=== PATIENT | male | born 1990 ===

== ENCOUNTER 2020-06-15 12:31 | Emergency (ER) | payer OTHER, SELFPAY ==
[2020-06-15 13:39] VITALS: BP 140/93; PULSE 80; RESP 16; O2SAT 99; BMI 55.3
[2020-06-15 15:00] LABS: MANUAL DIFF FLAG NO
[2020-06-15 15:04] LABS: Basophils Percent Auto 0.5 % (0-2); Eosinophils Percent Auto 0.1 % (0-4); Hematocrit 49.9 % (42-52); Hemoglobin 16.8 g/dl (14.0-18.0); Imm Gran Abs Auto 0.01 X10*3/uL (0.00-0.03); Imm Gran Pct Auto 0.1 % (0.0-0.4); Lymphocytes Absolute Auto 1.6 X10*3/uL (1.2-4.9); Lymphocytes Percent Auto 21.8 % (20-40); Mean Corpuscular HGB Conc 33.7 g/dl (31.0-36.0); Mean Corpuscular Hemoglobin 30.8 pg (27.0-33.0); Mean Corpuscular Volume 91.4 fL (80-98); Mean Platelet Volume 10.2 fL (9.4-12.4); Monocytes Absolute Auto 0.7 X10*3/uL (0.1-1.2); Monocytes Percent Auto 8.7 % (2-11); Neutrophils Absolute Auto 5.2 X10*3/uL (2.0-8.3); Neutrophils Percent Auto 68.8 % (45-73); Platelet Count 228 X10*3/uL (160-400); Red Blood Count 5.46 X10*6/uL (4.60-5.80); Red Cell Distribution Width 13.9 % (11.0-16.0); White Blood Count 7.5 X10*3/uL (4.8-10.8)
[2020-06-15 15:07] LABS: Glucose Urine UA NEG (NEG); Leukocyte Esterase Urine NEG (NEG); Nitrite Urine NEG (NEG); Specific Gravity - Urine 1.025 (1.005-1.025); Urine Blood NEG (NEG); Urine Ketones 5 MG/DL (NEG); Urine Protein NEG (NEG-TRACE)
[2020-06-15 15:08] LABS: Appearance Urine CLEAR; Color Urine YELLOW
[2020-06-15 15:16] LABS: Mucus Urine 1+ /LPF; RBC Urine 0-2 /HPF (0); Squamous Epithelial Cell Urine TRACE /LPF; WBC Urine 0-2 /HPF (0-4)
[2020-06-15 15:26] VITALS: BP 136/88; PULSE 71; RESP 16; O2SAT 99
[2020-06-15 15:29] LABS: Alanine Aminotransferase 35 U/L (0-40); Albumin Level 4.3 g/dL (3.5-5.0); Alkaline Phosphatase 83 U/L (39-117); Anion Gap 12 (12-20); Aspartate Amino Transferase 35 U/L (5-37); Bilirubin Total 1.5 mg/dL (0.0-1.0); Blood Urea Nitrogen 18 mg/dL (9-16); Calcium 9.3 mg/dL (8.4-10.2); Carbon Dioxide 28 mmol/L (22-29); Chloride 103 mmol/L (96-108); Creatinine Clr Calc Pharmacy 207.8; Estimated Glomerular Filt Rate > 60; Glucose Random 98 mg/dL (60-115); Magnesium 2.1 mg/dL (1.6-2.6); Potassium 4.1 mmol/L (3.3-5.1); Sodium 139 mmol/L (135-145); Total Protein 6.9 g/dL (6.5-8.0)
[2020-06-15 15:40] LABS: Amphetamine Screen Urine Not Detected (Not Detect); Barbiturates, Urine Not Detected (Not Detect); Benzodiazepines Screen Urine Not Detected (Not Detect); Cannabinoid Screen Urine Not Detected (Not Detect); Cocaine Screen Urine Not Detected (Not Detect); Opiate Screen Urine Not Detected (Not Detect); Phencyclidine Screen Urine Not Detected (Not Detect)
[2020-06-15 15:51] LABS: Thyroid Stimulating Hormone 0.45 uIU/mL (0.32-4.0)
--- NOTE | 2020-06-15 19:46 | ED.GENADULT ---
HPI - General Adult General Chief complaint: General Medical Stated complaint: numbness - hands and feet Time Seen by Provider: 06/15/20 13:49 Source: patient Mode of arrival: ambulatory Limitations: no limitations History of Present Illness HPI narrative: 28-year-old male who denies any significant past medical or surgical history not currently taking any medications denies any illicit substance use who presents ambulatory via triage with complaint of states over the past several months he has had intermittent feeling/sensations of numbness and tingling at the distal aspect of his hands bilaterally and also his feet sometimes it will be 1 location a last for several minutes if not longer and will resolve. States this will happen intermittently to all of his extremities. He denies any fever chills, headache, pain or discomfort. No recent illness. No recent travel. No family history of neurovascular disease. He denies any fluctuation in weight. Onset (ago): month(s) Quality: burning Pain Consistency: intermittent Relieving factors: none Exacerbating factors: none Associated symptoms: denies other symptoms Treatments prior to arrival: none Related Data Allergies Allergy/AdvReac Type Severity Reaction Status Date / Time No Known Allergies Allergy Unverified 12/01/19 16:08 [No Known Allergies*] Review of Systems Review of Systems: Constitutional: No Weight loss, No Fever, No Chills, No Night Sweats, No Fatigue, No Malaise ENT/Mouth: No Hearing loss, No Ear Pain, No Nasal Congestion, No Sinus Pain, No Hoarseness, No sore throat, No Rhinorrhea, No Swallowing Difficulty Eyes: No Eye Pain, No Swelling, No Redness, No Foreign Body, No Discharge, No Vision Changes Cardiovascular: No Chest Pain, No SOB, No Dyspnea on Exertion, No Orthopnea, No Edema, No Palpitations Respiratory: No Cough, No Sputum, No Wheezing, No Dyspnea Gastrointestinal: No Nausea, No Vomiting, No Diarrhea, No Constipation, No abdominal Pain, No Hematochezia, No Melena Genitourinary: No Dysuria, No Urinary Frequency, No Hematuria, No Urinary Incontinence, No Urgency, No Flank Pain, No Urinary Flow Changes, No Hesitancy Musculoskeletal: No joint pain, No Myalgias, No Joint Swelling Skin: No Skin Lesions, No rash Neuro: No Weakness, No Numbness, + Paresthesias, No Loss of Consciousness, No Dizziness, No Headache Psych: No Anxiety/Panic, No Depression, No SI/HI/AH/VH, No Social Issues Heme/Lymph: No Bruising, No Bleeding,No Lymphadenopathy Endocrine: No Polyuria, No Polydipsia, No Temperature Intolerance Yes all other systems are reviewed and are negative [facility] Social History Social History Advance Directives: No Advance Directives Information Provided: No Physical Exam Vital Signs: Vital Signs: Last Vital Signs Pulse 71 06/15/20 15:26 Resp 16 06/15/20 15:26 BP 136/88 06/15/20 15:26 Pulse Ox 99 06/15/20 15:26 Body Mass Index 55.3 Reviewed Const: Other: Well developed, appears stated age, walked in caring a book bag. General: cooperative and healthy appearing; No acute distress or intoxicated appearing Nutritional Appearance: average body habitus Orientation/consciousness: patient oriented x3 HENMT: Head: Yes normal to inspection Ears: hearing grossly normal bilaterally Eyes: General: appearance normal, both eyes and all related structures Visual [place]: normal visual [place] by confrontation Pupils: Equal, round and reactive pupils present Neck: Neck: Yes normal visual inspection, Yes no meningeal signs, No positive Brudzinski's sign, No positive Kernig's sign and No tender Thyroid: Thyroid normal Chest: Chest palpation & inspection: normal inspection of the chest Resp: Effort & Inspection: normal respiratory effort Auscultation: clear to auscultation bilaterally Cardio: Jugular venous distension: no JVD Rhythm: regular rhythm Heart sounds: S1 normal heart sound present and S2 normal heart sound present GI: Inspection: Yes normal to inspection Palpation (GI): Soft to palpation Percussion: Yes normal to percussion Auscultation: normal bowel sounds : General: Yes no CVA tenderness Back/Spine/Pelvis: Back: no CVA tenderness Skin: General skin exam: no rashes or lesions noted Neuro: General: patient oriented x3, gait normal, tone normal, moves all extremities, Normal light touch and pain sensation, no meningeal signs and CN's II-XI intact bilaterally Cranial nerves: Yes CN's II-XII intact bilaterally, Yes Facial sensation intact/muscles of mastication intact, Yes Equal, round and reactive pupils present and Yes Normal accommodation reflex present Cognition (Neuro): normal cognition Gait exam (Neuro): Normal gait present Motor exam (neuro): 5/5 motor strength present throughout, Pronator motor function not present, no tremor noted, no asterixis, Motor fasciculations not present and Normal motor muscle tone present throughout Sensory Exam: Normal double simultaneous stimulation for sensation Extrem: General: Yes normal to inspection NIH Stroke Scale Internal: Initial- Upon Arrival Level of Consciousness: Alert Level of Consciousness Questions: Answers both questions correctly Level of Consciousness Commands: Performs both tasks correctly Best Gaze: Normal Visual: No visual loss Facial Palsy: Normal Motor Arm (Right): No drift Motor Arm (Left): No drift Motor Leg (Right): No drift Motor Leg (Left): No drift Limb Ataxia: Absent Sensory: Normal Best Language: No aphasia Dysarthia: Normal Extinction and Inattention: No abnormality Score: 0 Course Course Course Narrative: Labs/magnesium stable, TSH within normal limits. Nonspecific paresthesias intermittent very atypical. No acute neurological findings. No symptoms at this time. Not currently taking medications. Denies any anxiety. Given this stable workup and findings I have recommended him seeing Neurology on a nonemergent basis. Has provided him with follow-up with Dr. Lau in the next 2-4 weeks. He verbalized understanding and comfortable plan. Medical Decision Making Lab Data Result diagrams: 06/15/20 14:49 06/15/20 14:49 Labs: Lab Results 06/15/20 06/15/20 06/15/20 Range/Units 14:49 14:49 14:49 WBC 7.5 (4.8-10.8) X10*3/uL RBC 5.46 (4.60-5.80) X10*6/uL Hgb 16.8 (14.0-18.0) g/dl Hct 49.9 (42-52) % MCV 91.4 (80-98) fL MCH 30.8 (27.0-33.0) pg MCHC 33.7 (31.0-36.0) g/dl RDW 13.9 (11.0-16.0) % Plt Count 228 (160-400) X10*3/uL MPV 10.2 (9.4-12.4) fL Immature Gran % (Auto) 0.1 (0.0-0.4) % Neut % (Auto) 68.8 (45-73) % Lymph % (Auto) 21.8 (20-40) % [place] % (Auto) 8.7 (2-11) % Eos % (Auto) 0.1 (0-4) % Baso % (Auto) 0.5 (0-2) % Lymph # (Auto) 1.6 (1.2-4.9) X10*3/uL [place] # (Auto) 0.7 (0.1-1.2) X10*3/uL Eos # (Auto) 0.0 (0.0-0.4) X10*3/uL Baso # (Auto) 0.0 (0.0-0.2) X10*3/uL Abs Immat Gran (auto) 0.01 (0.00-0.03) X10*3/uL Absolute Neuts (auto) 5.2 (2.0-8.3) X10*3/uL Absolute Nucleated RBC 0.000 (0.0-0.012) X10*3/uL Nucleated RBC % (auto) 0.0 (0.0-0.2) /100WBC Sodium 139 (135-145) mmol/L Potassium 4.1 (3.3-5.1) mmol/L Chloride 103 (96-108) mmol/L Carbon Dioxide 28 (22-29) mmol/L Anion Gap 12 (12-20) BUN 18 H (9-16) mg/dL Creatinine 0.87 (0.5-1.4) mg/dL Estim Creat Clear Calc 207.8 Estimated GFR > 60 Random Glucose 98 (60-115) mg/dL Calcium 9.3 (8.4-10.2) mg/dL Magnesium 2.1 (1.6-2.6) mg/dL Total Bilirubin 1.5 H (0.0-1.0) mg/dL AST 35 (5-37) U/L ALT 35 (0-40) U/L Alkaline Phosphatase 83 (39-117) U/L Total Protein 6.9 (6.5-8.0) g/dL Albumin 4.3 (3.5-5.0) g/dL TSH 0.45 (0.32-4.0) uIU/mL Urine Color YELLOW Urine Appearance CLEAR Urine pH 6.0 (5.0-8.0) Ur Specific Mark 1.025 (1.005-1.025) Urine Protein NEG (NEG-TRACE) MG/DL Urine Glucose (UA) NEG (NEG) MG/DL Urine Ketones 5 (NEG) MG/DL Urine Blood NEG (NEG) Urine Nitrite NEG (NEG) Ur Leukocyte Esterase NEG (NEG) Urine RBC 0-2 (0) /HPF Urine WBC 0-2 (0-4) /HPF Ur Squamous Epith Cells TRACE /LPF Urine Bacteria NONE /LPF Urine Mucus 1+ /LPF Urine Opiates Screen (Not Detect) Ur Barbiturates Screen (Not Detect) Ur Phencyclidine Scrn (Not Detect) Ur Amphetamines Screen (Not Detect) U Benzodiazepines Scrn (Not Detect) Urine Cocaine Screen (Not Detect) U Marijuana (THC) Screen (Not Detect) 06/15/20 Range/Units 14:49 WBC (4.8-10.8) X10*3/uL RBC (4.60-5.80) X10*6/uL Hgb (14.0-18.0) g/dl Hct (42-52) % MCV (80-98) fL MCH (27.0-33.0) pg MCHC (31.0-36.0) g/dl RDW (11.0-16.0) % Plt Count (160-400) X10*3/uL MPV (9.4-12.4) fL Immature Gran % (Auto) (0.0-0.4) % Neut % (Auto) (45-73) % Lymph % (Auto) (20-40) % [place] % (Auto) (2-11) % Eos % (Auto) (0-4) % Baso % (Auto) (0-2) % Lymph # (Auto) (1.2-4.9) X10*3/uL [place] # (Auto) (0.1-1.2) X10*3/uL Eos # (Auto) (0.0-0.4) X10*3/uL Baso # (Auto) (0.0-0.2) X10*3/uL Abs Immat Gran (auto) (0.00-0.03) X10*3/uL Absolute Neuts (auto) (2.0-8.3) X10*3/uL Absolute Nucleated RBC (0.0-0.012) X10*3/uL Nucleated RBC % (auto) (0.0-0.2) /100WBC Sodium (135-145) mmol/L Potassium (3.3-5.1) mmol/L Chloride (96-108) mmol/L Carbon Dioxide (22-29) mmol/L Anion Gap (12-20) BUN (9-16) mg/dL Creatinine (0.5-1.4) mg/dL Estim Creat Clear Calc Estimated GFR Random Glucose (60-115) mg/dL Calcium (8.4-10.2) mg/dL Magnesium (1.6-2.6) mg/dL Total Bilirubin (0.0-1.0) mg/dL AST (5-37) U/L ALT (0-40) U/L Alkaline Phosphatase (39-117) U/L Total Protein (6.5-8.0) g/dL Albumin (3.5-5.0) g/dL TSH (0.32-4.0) uIU/mL Urine Color Urine Appearance Urine pH (5.0-8.0) Ur Specific Mark (1.005-1.025) Urine Protein (NEG-TRACE) MG/DL Urine Glucose (UA) (NEG) MG/DL Urine Ketones (NEG) MG/DL Urine Blood (NEG) Urine Nitrite (NEG) Ur Leukocyte Esterase (NEG) Urine RBC (0) /HPF Urine WBC (0-4) /HPF Ur Squamous Epith Cells /LPF Urine Bacteria /LPF Urine Mucus /LPF Urine Opiates Screen Not Detected (Not Detect) Ur Barbiturates Screen Not Detected (Not Detect) Ur Phencyclidine Scrn Not Detected (Not Detect) Ur Amphetamines Screen Not Detected (Not Detect) U Benzodiazepines Scrn Not Detected (Not Detect) Urine Cocaine Screen Not Detected (Not Detect) U Marijuana (THC) Screen Not Detected (Not Detect) Discharge Plan Discharge Clinical Impression: Intermittent paresthesia of hand and foot Patient Disposition: Home, Self-Care Instructions: Paresthesia (ED) Additional Instructions: Please follow-up with her primary care doctor/neurologist as discussed Return if any concerns or worsening symptoms Thank you Referrals: Alysa Lau MD [Physician] - 1 week Physician,Unknown [Primary Care Provider] - 5 days Interventions: ED Discharge Assessment Last Done: 06/15/20 16:22 Discharge Date/Time: 06/15/20 16:23
== END 2020-06-15 16:23 | disposition home or self-care (01) ==
PROVIDERS: Nurse Practitioner Primary Care; Emergency Provider Emergency Medicine
DX: R20.0 Anesthesia of skin (principal); Z79.899 Other long term (current) drug therapy
CPT/HCPCS: 36415; 80053; 80307; 81001; 83735; 84443; 85025; 99283; 99284

== ENCOUNTER 2020-12-05 22:49 | Emergency (ER) | payer OTHER, SELFPAY ==
--- NOTE | ~2020-12-05 | CT_ITS ---
EXAMINATION: CT ABDOMEN AND PELVIS WITH CONTRAST CLINICAL INFORMATION: Right lower quadrant pain with nausea COMPARISON: 11/16/2019 TECHNIQUE: Multidetector volumetric images were obtained from the superior aspect of the liver through the pubic symphysis following administration 85 mL of Omnipaque 350 intravenous contrast. Sagittal and coronal reformatted images were obtained on the technologist's workstation. Oral contrast: No This CT examination was performed using dose optimization techniques as appropriate, variously including the following: *Automated exposure control *Adjustment of mA and/or kV according to patient size (this includes techniques or standardized protocols for targeted exams where dose is matched to indication/reason for exam; i.e. extremities or head) *Use of iterative reconstruction technique DLP: 573 mGy-cm FINDINGS: LUNG BASES: The visualized lung bases are unremarkable. LIVER, GALLBLADDER, AND BILIARY TREE: The liver is normal in size, shape, and attenuation. No focal hepatic lesion or biliary ductal dilatation is present. The gallbladder is unremarkable with no evidence of radiopaque gallstones, gallbladder wall thickening, or obvious pericholecystic inflammatory changes. PANCREAS: Unremarkable. SPLEEN: Unremarkable. ADRENAL GLANDS: Unremarkable. KIDNEYS AND URETERS: The kidneys are normal in size, shape, and attenuation. No hydronephrosis, hydroureter, or obstructing calculi seen. No perinephric stranding. BLADDER: Unremarkable. GASTROINTESTINAL TRACT: The appendix is thick-walled and fluid-filled measuring up to approximately 1.0 cm in diameter at the tip with mild adjacent stranding, suspicious for acute appendicitis in the setting of right lower quadrant pain. No associated abscess. No evidence of bowel obstruction. No free fluid or free air is seen. ABDOMINAL WALL: No significant hernia is appreciated. LYMPH NODES: Normal. VASCULAR: Unremarkable. PELVIC VISCERA: Unremarkable. OSSEOUS STRUCTURES: Unremarkable. CT/CT abdomen pelvis w con IMPRESSION: Findings suspicious for acute appendicitis as described above.
[2020-12-05 22:53] VITALS: BP 137/88; PULSE 78; RESP 16; TEMP 36.6; O2SAT 98; BMI 24.4
[2020-12-05 23:26] LABS: MANUAL DIFF FLAG NO
[2020-12-05 23:27] LABS: Basophils Absolute Auto 0.1 X10*3/uL (0.0-0.2); Basophils Percent Auto 0.4 % (0-2); Eosinophils Percent Auto 0.1 % (0-4); Hematocrit 48.6 % (42-52); Hemoglobin 16.6 g/dl (14.0-18.0); Imm Gran Abs Auto 0.05 X10*3/uL (0.00-0.03); Imm Gran Pct Auto 0.4 % (0.0-0.4); Lymphocytes Absolute Auto 1.1 X10*3/uL (1.2-4.9); Lymphocytes Percent Auto 7.6 % (20-40); Mean Corpuscular HGB Conc 34.2 g/dl (31.0-36.0); Mean Corpuscular Hemoglobin 30.3 pg (27.0-33.0); Mean Corpuscular Volume 88.8 fL (80-98); Monocytes Absolute Auto 0.9 X10*3/uL (0.1-1.2); Monocytes Percent Auto 6.4 % (2-11); Neutrophils Absolute Auto 11.9 X10*3/uL (2.0-8.3); Neutrophils Percent Auto 85.1 % (45-73); Platelet Count 205 X10*3/uL (160-400); Red Blood Count 5.47 X10*6/uL (4.60-5.80); Red Cell Distribution Width 13.2 % (11.0-16.0)
[2020-12-05 23:43] LABS: Alanine Aminotransferase 34 U/L (0-40); Albumin Level 4.3 g/dL (3.5-5.0); Alkaline Phosphatase 99 U/L (39-117); Anion Gap 15 (12-20); Aspartate Amino Transferase 33 U/L (5-37); Bilirubin Total 0.8 mg/dL (0.0-1.0); Blood Urea Nitrogen 18 mg/dL (9-16); Calcium 9.6 mg/dL (8.4-10.2); Carbon Dioxide 26 mmol/L (22-29); Chloride 103 mmol/L (96-108); Estimated Glomerular Filt Rate > 60; Glucose Random 117 mg/dL (60-115); Potassium 3.6 mmol/L (3.3-5.1); Sodium 140 mmol/L (135-145); Total Protein 6.8 g/dL (6.5-8.0)
[2020-12-06] MEDS: iohexoL 350 MG/ML 100 ML INFUS..BTL 85 ML IV (06:28)
[2020-12-06 07:40] VITALS: BP 118/75; PULSE 67; RESP 16; O2SAT 100
[2020-12-06 08:14] LABS: COVID-19 Test Negative (Negative); IDNOW Serial# 9DD0AD1C
[2020-12-06 08:53] LABS: Appearance Urine CLEAR; Color Urine YELLOW; Glucose Urine UA NEG (NEG); Leukocyte Esterase Urine NEG (NEG); Nitrite Urine NEG (NEG); Specific Gravity - Urine <= 1.005 (1.005-1.025); Urine Blood NEG (NEG); Urine Ketones NEG (NEG); Urine Protein NEG (NEG-TRACE)
--- NOTE | 2020-12-06 09:14 | PM.CNGS ---
History of Present Illness Consult details Consult date: 12/06/20 Reason for consult: other (Acute appendicitis) Requesting physician: Bobby Reyes Narrative: Year old gentleman who had that of right-sided abdominal pain around 06:00 o'clock last night. The pain was severe and was associated with nausea. He did not have fever, chills, vomiting or diarrhea. He has not experienced similar pain in the past. Pain was persistent and over time became more localized to the right lower quadrant. He presented to the emergency room for evaluation. White blood count was noted to be elevated at 14,000. CT scan of the abdomen and pelvis was consistent with early acute appendicitis. He reports persistent pain. The pain is made worse by movement and by pressure over the area. It is relieved with rest but does not resolve. Review of Systems Constitutional: Constitutional: Reports no additional constitutional complaints and Denies headache(s) Eyes: Eyes: Denies dry eyes and Denies requires corrective lenses ENT: Denies dizziness and Denies headache(s) Cardiovascular: Cardiovascular: Denies chest pain, Denies palpitations and Denies dyspnea on exertion Respiratory: Respiratory: Denies cough and Denies dyspnea on exertion Gastrointestinal: Gastrointestinal: Reports as per HPI Genitourinary: Genitourinary: Denies dysuria and Denies urinary frequency Musculoskeletal: Musculoskeletal: Reports no additional musculoskeletal complaints Integumentary/Breasts: Skin/Breast: Denies pruritus and Denies rash Neurologic: Denies dizziness and Denies headache(s) Endocrine: Endocrine: Denies palpitations Hematologic/Lymphatic: Hematologic/Lymphatic: Denies easy bleeding and Reports other (No history of blood clots) [facility] Family History Pertinent family history: Father and 1 brother have diabetes Social History Social History Advance Directives: No Advance Directives Information Provided: Yes Narrative Narrative: Does not smoke cigarettes, rare alcohol use, no marijuana or illicit substances Meds Allergies Allergy/AdvReac Type Severity Reaction Status Date / Time No Known Allergies Allergy Unverified 12/01/19 16:08 [No Known Allergies*] Physical Exam Vital Signs: Vital Signs: Last Vital Signs Temp 98 F 12/05/20 22:53 Pulse 67 12/06/20 07:40 Resp 16 12/06/20 07:40 BP 118/75 12/06/20 07:40 Pulse Ox 100 12/06/20 07:40 Body Mass Index 24.4 Const: General: cooperative, healthy appearing and no acute distress HENMT: Head: Yes normocephalic and Yes atraumatic Eyes: Conjunctivae: conjunctivae normal Sclerae: sclerae normal EOM: EOMs intact bilaterally Neck: Neck: Yes trachea midline and Yes supple Resp: Effort & Inspection: normal respiratory effort Auscultation: clear to auscultation bilaterally Cardio: Rate: regular rate Rhythm: regular rhythm GI: Other: Soft, flat, bowel sounds active, no masses, no organomegaly. Marked right lower quadrant tenderness without rebound Rectal Exam - Male: Yes deferred Skin: Other: Normal color, warm and dry Extrem: General: Yes normal to inspection Results Labs Result diagrams: 12/05/20 23:22 12/05/20 23:22 Labs: Abnormal lab results 12/05/20 12/05/20 Range/Units 23:22 23:22 WBC 14.0 H (4.8-10.8) X10*3/uL Neut % (Auto) 85.1 H (45-73) % Lymph % (Auto) 7.6 L (20-40) % Lymph # (Auto) 1.1 L (1.2-4.9) X10*3/uL Abs Immat Gran (auto) 0.05 H (0.00-0.03) X10*3/uL Absolute Neuts (auto) 11.9 H (2.0-8.3) X10*3/uL BUN 18 H (9-16) mg/dL Random Glucose 117 H (60-115) mg/dL Short CBC 12/05/20 Range/Units 23:22 WBC 14.0 H (4.8-10.8) X10*3/uL Hgb 16.6 (14.0-18.0) g/dl Hct 48.6 (42-52) % Plt Count 205 (160-400) X10*3/uL BMP 12/05/20 23:22 Sodium 140 Potassium 3.6 Chloride 103 Carbon Dioxide 26 BUN 18 H Creatinine 0.97 Calcium 9.6 Liver Function 12/05/20 Range/Units 23:22 Total Bilirubin 0.8 (0.0-1.0) mg/dL AST 33 (5-37) U/L ALT 34 (0-40) U/L Alkaline Phosphatase 99 (39-117) U/L Albumin 4.3 (3.5-5.0) g/dL Urine 12/06/20 Range/Units 08:45 Urine Color YELLOW Urine Appearance CLEAR Urine pH 6.0 (5.0-8.0) Ur Specific [place] <= 1.005 (1.005-1.025) Urine Protein NEG (NEG-TRACE) MG/DL Urine Glucose (UA) NEG (NEG) MG/DL All other labs normal. Assessment and Plan (1) Acute appendicitis: Status: Acute 30-year-old male presenting with history, exam and CT findings consistent with early acute appendicitis. We discussed treatment options including surgical treatment with laparoscopic appendectomy and potential need to convert to open. We discussed surgical risks including but not limited to infection, bleeding, DVT and PE, error in diagnosis, appendiceal stump leak. We discussed the anticipated course of recovery after both laparoscopic and open appendectomy. We also discussed the option of antibiotic therapy and reviewed the possibility that the treatment would not be successful. We discussed that the success rate is in the 75% range and that if treatment is successful, there is a chance that the appendicitis will recur. We also discussed that appendectomy would be recommended if he does not have significant improvement in his symptoms with an about 24 hours. After discussion, he elected a trial of antibiotic therapy. He already has received a dose of Zosyn in the emergency department. He will receive a 2nd dose around noon and will be reassessed. His preference is to be discharged home on oral antibiotics if he remains stable. Addendum: Reassessed at 1342. He reports significant improvement in his right lower quadrant pain. He is able to move more easily. he is hungry. He feels ready to go home. Exam reveals localized right lower quadrant tenderness significantly decreased from The time of my prior exam. We discussed the plan of care. He will begin Augmentin tonight. He will refrain from strenuous activity and will stay out of work until 12/10/2020. If he has persistent pain or any exacerbation of the pain, fever, chills, nausea or vomiting he will call the office or will return to the emergency room right away. We again discussed the option of surgery and reviewed the possibility of recurrent appendicitis, which can occur following successful treatment of acute appendicitis with antibiotic therapy. He will follow up in the office with Dr. Waller or Dr. Mcdermott next week. Procedures Date of Service Date of Service: 12/06/20
[2020-12-06] MEDS: Piperacillin Sodium/Tazobactam 3.375 GM in 0.9 % Sodium Chloride 50 ML IV (13:02)
== END 2020-12-06 14:48 | disposition home or self-care (01) ==
PROVIDERS: Emergency Provider Emergency Medicine
DX: K35.80 Unspecified acute appendicitis (principal); R10.31 Right lower quadrant pain; Z20.822 Contact with and (suspected) exposure to COVID-19; Z79.899 Other long term (current) drug therapy
CPT/HCPCS: 36415; 74177; 80053; 81003; 85025; 87040; 87635; 96365; 96375; 99284; J2543; Q9967

== ENCOUNTER 2021-07-26 11:26 | Inpatient (IN) | payer OTHER, SELFPAY ==
--- NOTE | ~2021-07-26 | CT_ITS ---
EXAMINATION: CT ABDOMEN AND PELVIS WITHOUT CONTRAST CLINICAL INFORMATION: Right lower quadrant tenderness, rule out appendicitis COMPARISON: CT abdomen pelvis 12/06/2020 TECHNIQUE: Multidetector volumetric imaging was performed from the superior aspect of the liver through the pubic symphysis. Sagittal and coronal reformatted images were obtained on the technologist's workstation. This CT examination was performed using dose optimization techniques as appropriate, variously including the following: *Automated exposure control *Adjustment of mA and/or kV according to patient size (this includes techniques or standardized protocols for targeted exams where dose is matched to indication/reason for exam; i.e. extremities or head) *Use of iterative reconstruction technique DLP: 595 mGy-cm FINDINGS: LUNG BASES: Unremarkable. ABDOMINAL AND PELVIC WALL: Unremarkable. LIVER AND BILIARY TREE: Unremarkable. GALLBLADDER: Unremarkable. PANCREAS: Unremarkable. SPLEEN: Unremarkable. ADRENAL GLANDS: Unremarkable. KIDNEYS AND URETERS: Unremarkable. GASTROINTESTINAL TRACT: Large and small bowel are unremarkable. The appendix is dilated to 1.0 cm and fluid-filled, with mild surrounding inflammatory changes suggesting acute appendicitis. No organized fluid collection or extraluminal air to suggest perforation. VASCULAR: Unremarkable. LYMPH NODES/PERITONEUM: No lymphadenopathy. FREE FLUID: None. BLADDER: Unremarkable. PELVIC VISCERA: Unremarkable. OSSEOUS STRUCTURES: Unremarkable. CT/CT abdomen pelvis wo con IMPRESSION: The appendix is dilated to 1.0 cm and fluid-filled, with mild surrounding inflammatory changes suggesting acute appendicitis. No organized fluid collection or extraluminal air to suggest perforation. The findings and recommendations were discussed with Jorge Parr MD by telephone at 07/26/2021 6:00 PM and it was ascertained that the content and urgency of the report was understood at the time of direct communication.
[2021-07-26 11:37] VITALS: BP 136/87; PULSE 76; RESP 18; TEMP 37.7; O2SAT 99; BMI 26.4
[2021-07-26 11:55] LABS: MANUAL DIFF FLAG NO
[2021-07-26 11:57] LABS: Basophils Absolute Auto 0.1 X10*3/uL (0.0-0.2); Basophils Percent Auto 0.4 % (0-2); Eosinophils Percent Auto 0.1 % (0-4); Hematocrit 50.2 % (42.0-52.0); Hemoglobin 16.6 g/dl (14.0-18.0); Imm Gran Abs Auto 0.06 X10*3/uL (0.00-0.03); Imm Gran Pct Auto 0.4 % (0.0-0.4); Lymphocytes Absolute Auto 1.7 X10*3/uL (1.2-4.9); Mean Corpuscular HGB Conc 33.1 g/dl (31.0-36.0); Mean Corpuscular Hemoglobin 29.5 pg (27.0-33.0); Mean Corpuscular Volume 89.2 fL (80.0-98.0); Mean Platelet Volume 9.8 fL (9.4-12.4); Monocytes Absolute Auto 0.9 X10*3/uL (0.1-1.2); Monocytes Percent Auto 6.5 % (2-11); Neutrophils Absolute Auto 11.3 x10*3/uL (2.0-8.3); Neutrophils Percent Auto 80.6 % (45-73); Platelet Count 224 X10*3/uL (160-400); Red Blood Count 5.63 X10*6/uL (4.60-5.80); Red Cell Distribution Width 13.4 % (11.0-16.0)
[2021-07-26 12:16] LABS: Alanine Aminotransferase 35 U/L (0-40); Albumin Level 4.4 g/dL (3.5-5.0); Alkaline Phosphatase 110 U/L (39-117); Anion Gap 14 (12-20); Aspartate Amino Transferase 29 U/L (5-37); Bilirubin Direct 0.4 mg/dL (0.0-0.5); Blood Urea Nitrogen 19 mg/dL (9-16); Calcium 10.2 mg/dL (8.4-10.2); Carbon Dioxide 26 mmol/L (22-29); Chloride 102 mmol/L (96-108); Creatinine Clr Calc Pharmacy 109.8; Estimated Glomerular Filt Rate > 60; Glucose Random 145 mg/dL (60-115); Lipase 32 U/L (8-78); Potassium 4.2 mmol/L (3.3-5.1); Sodium 138 mmol/L (135-145); Total Protein 7.2 g/dL (6.5-8.0)
[2021-07-26 16:51] LABS: Appearance Urine CLEAR; Color Urine YELLOW; Glucose Urine UA NEG (NEG); Leukocyte Esterase Urine NEG (NEG); Nitrite Urine NEG (NEG); Urine Blood NEG (NEG); Urine Ketones NEG (NEG); Urine Protein NEG (NEG-TRACE)
--- NOTE | 2021-07-26 18:16 | ED_ITS ---
HPI - Abdominal Pain General Chief Complaint: Abdominal Pain Stated Complaint: appendix pain Time Seen by Provider: 07/26/21 18:16 Source: patient Mode of arrival: ambulatory Limitations: no limitations History of Present Illness HPI narrative: Patient with no similar past medical history except had a acute appendicitis episode in 12/04 treated with antibiotics comes here for similar right lower quadrant pain started today morning 07:00 o'clock gradually getting worse acid with nausea and vomiting patient had last meal at 09:00 a.m.. No fever no chills no diarrhea. Pain is constant dull in nature gets worse on ambulation no radiation of the pain no urinary symptom Related Data Home Medications Medication Instructions Recorded Confirmed No Known Home Meds 07/26/21 07/26/21 Allergies Allergy/AdvReac Type Severity Reaction Status Date / Time No Known Allergies Allergy Unverified 12/01/19 16:08 [No Known Allergies*] Review of Systems Review of Systems Yes all other systems are reviewed and are negative [facility] Social History Social History Currently Displaying Signs/Symptoms of Drug Intoxication Withdrawal: No Advance Directives: No Advance Directives Information Provided: Yes Physical Exam ED Vital Signs: Vital Signs - 24 hr 07/26/21 11:37 Temperature 99.9 F Pulse Rate 76 Respiratory Rate 18 Blood Pressure 136/87 Pulse Oximetry 99 BMI result Body Mass Index 26.4 Appearance: Alert. Oriented X3. No acute distress. Eyes: No pallor or icterus ENT: Pharynx normal. Oral Mucosa moist Neck: Normal inspection. Neck supple. CVS: Normal heart rate and rhythm. Pulses normal. Respiratory: No respiratory distress. Equal air entry bilateral, no wheezing/rales/rhonchi Abdomen: Soft , Bowel sounds are present, no mass palpable, no CVA tenderness tender right lower quadrant with guarding and rebound tenderness Skin: Skin warm and dry. Normal skin color. Normal skin turgor. Extremities: No lower extremity edema. No calf tenderness Neuro: Oriented X 3. MDM - Abdominal Pain MDM Narrative Medical decision making narrative: Case discussed Dr. Mcdermott will admit the patient for acute appendicitis Lab Data Attestation: I reviewed the patient's lab results. Result diagrams: 07/26/21 11:51 07/26/21 11:51 Labs: Lab Results 0507/26/21 07/26/21 Range/Units 11:51 11:51 16:36 WBC 14.0 H (4.8-10.8) X10*3/uL RBC 5.63 (4.60-5.80) X10*6/uL Hgb 16.6 (14.0-18.0) g/dl Hct 50.2 (42.0-52.0) % MCV 89.2 (80.0-98.0) fL MCH 29.5 (27.0-33.0) pg MCHC 33.1 (31.0-36.0) g/dl RDW 13.4 (11.0-16.0) % Plt Count 224 (160-400) X10*3/uL MPV 9.8 (9.4-12.4) fL Immature Gran % (Auto) 0.4 (0.0-0.4) % Neut % (Auto) 80.6 H (45-73) % Lymph % (Auto) 12.0 L (20-40) % [place] % (Auto) 6.5 (2-11) % Eos % (Auto) 0.1 (0-4) % Baso % (Auto) 0.4 (0-2) % Lymph # (Auto) 1.7 (1.2-4.9) X10*3/uL [place] # (Auto) 0.9 (0.1-1.2) X10*3/uL Eos # (Auto) 0.0 (0.0-0.4) X10*3/uL Baso # (Auto) 0.1 (0.0-0.2) X10*3/uL Abs Immat Gran (auto) 0.06 H (0.00-0.03) X10*3/uL Absolute Neuts (auto) 11.3 H (2.0-8.3) x10*3/uL Absolute Nucleated RBC 0.000 (0.0-0.012) X10*3/uL Nucleated RBC % (auto) 0.0 (0.0-0.2) /100WBC Sodium 138 (135-145) mmol/L Potassium 4.2 (3.3-5.1) mmol/L Chloride 102 (96-108) mmol/L Carbon Dioxide 26 (22-29) mmol/L Anion Gap 14 (12-20) BUN 19 H (9-16) mg/dL Creatinine 1.05 (0.5-1.4) mg/dL Estim Creat Clear Calc 109.8 Estimated GFR > 60 Random Glucose 145 H (60-115) mg/dL Calcium 10.2 D (8.4-10.2) mg/dL Total Bilirubin 1.0 (0.0-1.0) mg/dL Direct Bilirubin 0.4 (0.0-0.5) mg/dL AST 29 (5-37) U/L ALT 35 (0-40) U/L Alkaline Phosphatase 110 (39-117) U/L Total Protein 7.2 (6.5-8.0) g/dL Albumin 4.4 (3.5-5.0) g/dL Lipase 32 (8-78) U/L Urine Color YELLOW Urine Appearance CLEAR Urine pH 6.0 (5.0-8.0) Ur Specific [place] 1.020 (1.005-1.025) Urine Protein NEG (NEG-TRACE) MG/DL Urine Glucose (UA) NEG (NEG) MG/DL Urine Ketones NEG (NEG) MG/DL Urine Blood NEG (NEG) Urine Nitrite NEG (NEG) Ur Leukocyte Esterase NEG (NEG) Discharge Plan Discharge Clinical Impression: Acute appendicitis Patient Disposition: Admitted As Inpatient Interventions: Admission Worksheet (ED) Last Done: 07/26/21 23:26 Discharge Date/Time: 07/26/21 23:55
--- NOTE | 2021-07-26 19:35 | PM.HPGS ---
History of Present Illness History of Present Illness Date of Service: 07/27/21 Chief complaint: recurrent acute appendicitis Narrative: Damien Roberts JR is a 31 year old male Patient presenting with complaints of right lower quadrant abdominal pain since 07:00 o'clock this morning. He reports a previous episode of similar pain November 2020. At that time he was diagnosed with early appendicitis and treated with IV antibiotics. He was subsequently switched to oral antibiotics and discharged to home. He remained asymptomatic until this morning when he again developed similar pain in the right upper quadrant. Pain was associated with nausea and vomiting, and seemed to increase in severity throughout the day . He denies fever or chills. He subsequently presented to the emergency department for further evaluation. In emergency department he was noted to be tender in the right lower quadrant. [place] [address] of the abdomen pelvis again showed a dilated appendix which was fluid filled with inflammatory changes. There is no evidence of perforation. Patient is admitted for further management of the acute appendicitis. Review of Systems Review of Systems: Yes all other systems are reviewed and are negative Constitutional: Constitutional: Reports anorexia, Denies chills, Denies fever(s) and Denies headache(s) ENT: Denies headache(s) Cardiovascular: Cardiovascular: Denies chest pain, Denies rapid heart rate, Denies irregular heart rhythm and Denies dyspnea on exertion Respiratory: Respiratory: Denies cough, Denies dyspnea on exertion and Denies wheezing Gastrointestinal: Gastrointestinal: Reports abdominal pain, Denies hematochezia, Denies change in stool character, Reports nausea and Reports vomiting Genitourinary: Genitourinary: Denies hematuria and Denies dysuria Musculoskeletal: Musculoskeletal: Denies arthralgias and Denies stiffness Integumentary/Breasts: Skin/Breast: Denies furuncle and Denies rash Neurologic: Denies confusion and Denies headache(s) Psychiatric: Psychiatric: Denies confusion Allergic/Immunologic: Allergic/Immunologic: Denies wheezing PMFSH Social History Social History Household Members: Children Housing: Apartment Patient Tobacco Use Status: Never used Tobacco Smoked in Last 30 Days: No e-Cigarette/Vaping Use: Never Used Patient Interested in Nicotine Replacement: No Patient Given Instructions on How to Stop Smoking: No Second Hand Smoke Exposure: No Use of substances other than those prescribed or required for medical reasons: No Currently Displaying Signs/Symptoms of Drug Intoxication Withdrawal: No Any prior treatment program specific to substance use: No Have you been hit, kicked, punched, or otherwise hurt by someone within the past year? If so, by whom?: No Do you feel safe in your current relationship?: Yes Is there a partner from a previous relationship who is making you feel unsafe now?: No Are you made to feel afraid or neglected: No Advance Directives: No Advance Directives Information Provided: Yes Do you have thoughts of harming others: None Do you have a plan to hurt others: No Plan Recently lost weight without trying: No Eating poorly because of decreased appetite: No Nutrition Risks: No Nutritional Risk Meds Allergies Allergy/AdvReac Type Severity Reaction Status Date / Time No Known Allergies Allergy Unverified 12/01/19 16:08 [No Known Allergies*] Active Medications: Current Medications Hydromorphone HCl (Hydromorphone Hcl 0.5 Mg/0.5 Ml Syringe) 0.5 mg IVPUSH Q3H PRN; Protocol PRN Reason: Pain, Severe (Pain Scale 7-10) Acetaminophen (Ofirmev) 1,000 mg in 100 mls @ 400 mls/hr IV Q6H [facility] Dextrose/Lactated Ringer's (D5lr) 1,000 mls @ 125 mls/hr IVCONT .Q8H [facility] Piperacillin Sod/Tazobactam (Sod 3.375 gm/ Sodium Chloride) 50 mls @ 100 mls/hr IV Q6H [facility] Ondansetron HCl (Ondansetron Hcl 4 Mg/2 Ml Vial) 4 mg IVPUSH Q8H PRN PRN Reason: Nausea Oxycodone HCl (Oxycodone Hcl Immed Release 5 Mg Tablet) 5 mg PO Q6H PRN PRN Reason: Pain, Moderate (Pain Scale 4-6 Pharmacy Consult (Consult Rx Perform Med Rec) 1 each MISCELLANE ONCE PRN PRN Reason: Consult order Sodium Chloride (0.9 % Sodium Chloride Flush 3 Ml Syringe) 3 ml IVFLUSH QSHIFT [facility] Zolpidem Tartrate (Zolpidem Tartrate 5 Mg Tablet) 5 mg PO BEDTIME PRN PRN Reason: Insomnia Home Medications Medication Instructions Recorded Confirmed Last Taken Type No Known Home Meds 07/26/21 07/26/21 Unknown History Physical Exam Vital Signs: Vital Signs: Last Vital Signs Temp 99.9 F 07/26/21 11:37 Pulse 76 07/26/21 11:37 Resp 18 07/26/21 11:37 BP 136/87 07/26/21 11:37 Pulse Ox 99 07/26/21 11:37 BMI result Body Mass Index 26.4 Const: General: No confusion Nutritional Appearance: well nourished Orientation/consciousness: No confusion Eyes: Sclerae: sclerae normal EOM: EOMs intact bilaterally Neck: Neck: Yes normal visual inspection Resp: Effort & Inspection: normal respiratory effort, no cough, no respiratory distress and no stridor Cardio: Jugular venous distension: no JVD GI: Inspection: Yes normal to inspection Palpation (GI): Soft to palpation, Tenderness to palpation present (GI) in the RLQ and at McBurney's point, no guarding and not rigid Skin: General skin exam: dry skin Rashes: no rashes Neuro: General: No confusion Extrem: General: Yes full ROM and Yes no clubbing, cyanosis or edema Psych: Appearance: grossly normal Results Results Labs: Short CBC 07/26/21 Range/Units 11:51 WBC 14.0 H (4.8-10.8) X10*3/uL Hgb 16.6 (14.0-18.0) g/dl Hct 50.2 (42.0-52.0) % Plt Count 224 (160-400) X10*3/uL BMP 07/26/21 11:51 Sodium 138 Potassium 4.2 Chloride 102 Carbon Dioxide 26 BUN 19 H Creatinine 1.05 Calcium 10.2 D Liver Function 07/26/21 Range/Units 11:51 Total Bilirubin 1.0 (0.0-1.0) mg/dL Direct Bilirubin 0.4 (0.0-0.5) mg/dL AST 29 (5-37) U/L ALT 35 (0-40) U/L Alkaline Phosphatase 110 (39-117) U/L Albumin 4.4 (3.5-5.0) g/dL Urine 07/26/21 Range/Units 16:36 Urine Color YELLOW Urine Appearance CLEAR Urine pH 6.0 (5.0-8.0) Ur Specific [place] 1.020 (1.005-1.025) Urine Protein NEG (NEG-TRACE) MG/DL Urine Glucose (UA) NEG (NEG) MG/DL Assessment and Plan (1) Acute appendicitis: Qualifiers: Acute appendicitis type: unspecified acute appendicitis type Qualified Code(s): K35.80 - Unspecified acute appendicitis Status: Acute Plan 31-year-old male patient presenting with a recurrent episode of acute appendicitis with pain in the right upper quadrant since yesterday morning. [place] [address] of the abdomen again shows a dilated thickened appendix consistent with acute appendicitis. He was previously treated non operatively with good results however due to the recurrent episode of appendicitis, I recommended a laparoscopic or possible open appendectomy. After discussion of the procedure, risks, and alternatives, he consents to a laparoscopic or possible open appendectomy. He will be added onto the operative schedule for today. Quality Stroke Does the patient have a stroke diagnosis?: No VTE Prior VTE?: No VTE Risk Level:: Surgical - moderate VTE Device Contraindication: N/A - Device Ordered VTE Drug Contraindication: Treatment Not Indicated Procedures Date of Service Date of Service: 07/27/21
--- NOTE | 2021-07-26 20:37 | PHA.MEDREC ---
MED REC COMPLETE, PATIENT STATES HE IS NOT ON ANY MEDICATION Pharmacy Consult ? Medication Reconciliation Pharmacy has completed the medication reconciliation.
[2021-07-26 20:56] LABS: Lactic Acid 1.3 mmol/L (0.5-2.0)
[2021-07-26] MEDS: 0.9 % Sodium Chloride 1,000 ML 999 ML IV (21:01)
[2021-07-26] MEDS: Piperacillin Sodium/Tazobactam 3.375 GM in 0.9 % Sodium Chloride 50 ML IV (21:02)
[2021-07-26 21:10] LABS: COVID-19 Test Negative (Negative); IDNOW Serial# 55D5AD1C
[2021-07-26] MEDS: Dextrose 5 % and Lactated Ring 1,000 ML 125 ML IVCONT (22:37)
[2021-07-26 23:05] VITALS: BP 127/76; PULSE 79; RESP 16; TEMP 36.9; O2SAT 97
[2021-07-26 23:11] LABS: Influenza A PCR NEGATIVE (Negative); Influenza B PCR NEGATIVE (Negative); Resp Syncy Virus RNA Qual PCR NEGATIVE (Negative); SARS COV2 PCR INHOUSE NEGATIVE (Negative)
[2021-07-27] VITALS (8 sets, daily range): BP systolic 131–141; BP diastolic 78–92; PULSE 70–89; RESP 16–18; TEMP 36.1–36.6; O2SAT 95–98
[2021-07-27] MEDS: Piperacillin Sodium/Tazobactam 3.375 GM in 0.9 % Sodium Chloride 50 ML IV (02:21)
[2021-07-27 06:11] LABS: MANUAL DIFF FLAG NO
[2021-07-27] MEDS: Dextrose 5 % and Lactated Ring 1,000 ML 125 ML IVCONT (06:18)
[2021-07-27 06:22] LABS: Basophils Percent Auto 0.5 % (0-2); Eosinophils Absolute Auto 0.1 X10*3/uL (0.0-0.4); Eosinophils Percent Auto 0.8 % (0-4); Hematocrit 43.3 % (42.0-52.0); Hemoglobin 14.5 g/dl (14.0-18.0); Imm Gran Abs Auto 0.02 X10*3/uL (0.00-0.03); Imm Gran Pct Auto 0.3 % (0.0-0.4); Lymphocytes Absolute Auto 1.4 X10*3/uL (1.2-4.9); Lymphocytes Percent Auto 22.9 % (20-40); Mean Corpuscular HGB Conc 33.5 g/dl (31.0-36.0); Mean Corpuscular Hemoglobin 29.9 pg (27.0-33.0); Mean Corpuscular Volume 89.3 fL (80.0-98.0); Mean Platelet Volume 10.3 fL (9.4-12.4); Monocytes Absolute Auto 0.6 X10*3/uL (0.1-1.2); Monocytes Percent Auto 10.2 % (2-11); Neutrophils Absolute Auto 4.1 x10*3/uL (2.0-8.3); Neutrophils Percent Auto 65.3 % (45-73); Platelet Count 175 X10*3/uL (160-400); Red Blood Count 4.85 X10*6/uL (4.60-5.80); Red Cell Distribution Width 13.3 % (11.0-16.0); White Blood Count 6.3 X10*3/uL (4.8-10.8)
--- NOTE | 2021-07-27 08:46 | HO.ANESPROP2 ---
[facility] Active Problems Active Problems: All Active Problems (Updated 07/26/21 @ 19:58 by Jorge Parr MD) Acute appendicitis (Acute) Past Medical History Functional capacity: independent ambulation Family History Family history of problems with anesthesia: No Surgical History History of Problems with Anesthesia: No Social History Social History Household Members: Children Housing: Apartment Patient Tobacco Use Status: Never used Tobacco Smoked in Last 30 Days: No e-Cigarette/Vaping Use: Never Used Patient Interested in Nicotine Replacement: No Patient Given Instructions on How to Stop Smoking: No Second Hand Smoke Exposure: No Use of substances other than those prescribed or required for medical reasons: No Currently Displaying Signs/Symptoms of Drug Intoxication Withdrawal: No Any prior treatment program specific to substance use: No Have you been hit, kicked, punched, or otherwise hurt by someone within the past year? If so, by whom?: No Do you feel safe in your current relationship?: Yes Is there a partner from a previous relationship who is making you feel unsafe now?: No Are you made to feel afraid or neglected: No Advance Directives: No Advance Directives Information Provided: Yes Do you have thoughts of harming others: None Do you have a plan to hurt others: No Plan Recently lost weight without trying: No Eating poorly because of decreased appetite: No Nutrition Risks: No Nutritional Risk Meds Allergies Allergy/AdvReac Type Severity Reaction Status Date / Time No Known Allergies Allergy Unverified 12/01/19 16:08 [No Known Allergies*] Active Medications: Current Medications Hydromorphone HCl (Hydromorphone Hcl 0.5 Mg/0.5 Ml Syringe) 0.5 mg IVPUSH Q3H PRN; Protocol PRN Reason: Pain, Severe (Pain Scale 7-10) Acetaminophen (Ofirmev) 1,000 mg in 100 mls @ 400 mls/hr IV Q6H [facility] [place] Last Infusion: 07/27/21 02:53 Dose: Infused Documented by: Dextrose/Lactated Ringer's (D5lr) 1,000 mls @ 125 mls/hr IVCONT .Q8H [facility] [place] Last Infusion: 07/27/21 08:05 Dose: 0 mls/hr Documented by: Piperacillin Sod/Tazobactam (Sod 3.375 gm/ Sodium Chloride) 50 mls @ 100 mls/hr IV Q6H [facility] [place] Last Infusion: 07/27/21 02:53 Dose: Infused Documented by: Ondansetron HCl (Ondansetron Hcl 4 Mg/2 Ml Vial) 4 mg IVPUSH Q8H PRN PRN Reason: Nausea Oxycodone HCl (Oxycodone Hcl Immed Release 5 Mg Tablet) 5 mg PO Q6H PRN PRN Reason: Pain, Moderate (Pain Scale 4-6 Pharmacy Consult (Consult Rx Perform Med Rec) 1 each MISCELLANE ONCE PRN PRN Reason: Consult order Sodium Chloride (0.9 % Sodium Chloride Flush 3 Ml Syringe) 3 ml IVFLUSH QSHIFT [facility] [place] Last Admin: 07/27/21 07:41 Dose: Not Given Documented by: Zolpidem Tartrate (Zolpidem Tartrate 5 Mg Tablet) 5 mg PO BEDTIME PRN PRN Reason: Insomnia Home Medications Medication Instructions Recorded Confirmed Last Taken Type No Known Home Meds 07/26/21 07/26/21 Unknown History Exam Exam Date and Time: July 27, 2021 0846 Height,Weight and Vital Signs: Height 6 ft Weight 88.451 kg Last Vital Signs Temp 97.7 F 07/27/21 07:47 Pulse 89 07/27/21 07:47 Resp 17 07/27/21 07:47 BP 132/88 07/27/21 07:47 Pulse Ox 98 07/27/21 07:47 Pertinent Lab Results Pertinent Lab Results: Laboratory Tests 07/26/21 07/26/21 07/26/21 11:51 11:51 16:36 WBC 14.0 H RBC 5.63 Hgb 16.6 Hct 50.2 MCV 89.2 MCH 29.5 MCHC 33.1 RDW 13.4 Plt Count 224 MPV 9.8 Immature Gran % (Auto) 0.4 Neut % (Auto) 80.6 H Lymph % (Auto) 12.0 L [place] % (Auto) 6.5 Eos % (Auto) 0.1 Baso % (Auto) 0.4 Lymph # (Auto) 1.7 [place] # (Auto) 0.9 Eos # (Auto) 0.0 Baso # (Auto) 0.1 Abs Immat Gran (auto) 0.06 H Absolute Neuts (auto) 11.3 H Absolute Nucleated RBC 0.000 Nucleated RBC % (auto) 0.0 Sodium 138 Potassium 4.2 Chloride 102 Carbon Dioxide 26 Anion Gap 14 BUN 19 H Creatinine 1.05 Estim Creat Clear Calc 109.8 Estimated GFR > 60 Random Glucose 145 H Lactic Acid Calcium 10.2 D Total Bilirubin 1.0 Direct Bilirubin 0.4 AST 29 ALT 35 Alkaline Phosphatase 110 Total Protein 7.2 Albumin 4.4 Lipase 32 Urine Color YELLOW Urine Appearance CLEAR Urine pH 6.0 Ur Specific [place] 1.020 Urine Protein NEG Urine Glucose (UA) NEG Urine Ketones NEG Urine Blood NEG Urine Nitrite NEG Ur Leukocyte Esterase NEG COVID-19 ([facility]) COVID-19 Clin Com Influenza Type A (PCR) Influenza Type B (PCR) RSV RNA Qual (PCR) SARS-CoV-2 RNA (RT-PCR) 07/26/21 07/26/21 07/26/21 20:32 20:41 22:26 WBC RBC Hgb Hct MCV MCH MCHC RDW Plt Count MPV Immature Gran % (Auto) Neut % (Auto) Lymph % (Auto) [place] % (Auto) Eos % (Auto) Baso % (Auto) Lymph # (Auto) [place] # (Auto) Eos # (Auto) Baso # (Auto) Abs Immat Gran (auto) Absolute Neuts (auto) Absolute Nucleated RBC Nucleated RBC % (auto) Sodium Potassium Chloride Carbon Dioxide Anion Gap BUN Creatinine Estim Creat Clear Calc Estimated GFR Random Glucose Lactic Acid 1.3 Calcium Total Bilirubin Direct Bilirubin AST ALT Alkaline Phosphatase Total Protein Albumin Lipase Urine Color Urine Appearance Urine pH Ur Specific [place] Urine Protein Urine Glucose (UA) Urine Ketones Urine Blood Urine Nitrite Ur Leukocyte Esterase COVID-19 ([facility]) Negative COVID-19 Clin Com See Note Influenza Type A (PCR) NEGATIVE Influenza Type B (PCR) NEGATIVE RSV RNA Qual (PCR) NEGATIVE SARS-CoV-2 RNA (RT-PCR) NEGATIVE 07/27/21 06:01 WBC 6.3 RBC 4.85 Hgb 14.5 Hct 43.3 MCV 89.3 MCH 29.9 MCHC 33.5 RDW 13.3 Plt Count 175 MPV 10.3 Immature Gran % (Auto) 0.3 Neut % (Auto) 65.3 Lymph % (Auto) 22.9 [place] % (Auto) 10.2 Eos % (Auto) 0.8 Baso % (Auto) 0.5 Lymph # (Auto) 1.4 [place] # (Auto) 0.6 Eos # (Auto) 0.1 Baso # (Auto) 0.0 Abs Immat Gran (auto) 0.02 Absolute Neuts (auto) 4.1 Absolute Nucleated RBC 0.000 Nucleated RBC % (auto) 0.0 Sodium Potassium Chloride Carbon Dioxide Anion Gap BUN Creatinine Estim Creat Clear Calc Estimated GFR Random Glucose Lactic Acid Calcium Total Bilirubin Direct Bilirubin AST ALT Alkaline Phosphatase Total Protein Albumin Lipase Urine Color Urine Appearance Urine pH Ur Specific [place] Urine Protein Urine Glucose (UA) Urine Ketones Urine Blood Urine Nitrite Ur Leukocyte Esterase COVID-19 ([facility]) COVID-19 Clin Com Influenza Type A (PCR) Influenza Type B (PCR) RSV RNA Qual (PCR) SARS-CoV-2 RNA (RT-PCR) Airway Heart: RRR Lungs: CTA Assessment and Plan Final Anesthetic Review Family History of Problems with Anesthesia: No History of Problems with Anesthesia: No ASA Class: I and Emergency Final Preanesthetic Review: No Changes in Pt Med Stat, Meds/Allgs Chart Reviewed, Consent Obtained/Reviewed and Anes Risks/Benef Reviewed Patient Risk: Low Procedure Risk: Low Anesthetic Plan Anesthetic Plan: GA Disposition: Standard PACU
--- NOTE | 2021-07-27 09:30 | W.PM.OPN ---
Operative Note Operative Note Date of Service: 07/27/21 Narrative: Preoperative diagnosis: Acute appendicitis Postoperative diagnosis: Same Procedure: Laparoscopic appendectomy Surgeon: Dario Mcdermott MD Floating Labor Gang Supervisor: none Anesthesia: General endotracheal Indications for procedure:31 year old male with recurrent episode of abdominal pain in the right upper quadrant, with elevated WBC and dilated appendix on CT. Operative findings: acute non-perforated appendicitis Specimen:appendix Estimated blood loss:5 mls Complications: none Procedure details: Patient was brought to the OR and placed in a supine position. After administering general anesthesia the patient's abdomen was prepped with ChloraPrep and draped in a sterile fashion. A surgical time-out was called and consent confirmed. Patient received preoperative antibiotics and Venodyne boots were in place. Local anesthesia consisting of 0.25% Sensorcaine withoutepinephrine was infiltrated in periumbilical region. A 5 mm incision was made below the umbilicus and carried down through subcutaneous tissue. A Veress needle was then inserted while elevating abdominal cavity with towel clips. After a positive drop test the abdomen was insufflated to a pressure of 15 mm of mercury. The Veress needle was removed and a 5 mm trocar inserted. The camera was then inserted in the abdomen explored. A 2nd 5 mm trocars placed in the lower midline. A 12 mm trocar was then placed in the left lower quadrant. The patient was then placed in a Trendelenburg position and rotated to the left. The appendix was identified in the right lower quadrant and brought up using blunt dissecting clamps. The mesentery of the appendix was then divided using the LigaSure. The appendiceal artery was cauterized and divided using the LigaSure. Dissection was continued down to the base of the cecum. An Endo-NABOR stapler with a purple reload was then used to divide the appendix at the base with the cecum. The appendix was then placed in Endo-Catch bag and brought out through the left lower quadrant incision. The abdomen was then irrigated with saline solution and suctioned dry. Wounds were checked for hemostasis. CO2 was then evacuated from the abdominal cavity and all trocars removed. Fascia was closed in the left lower quadrant incision using a [id number] 0 Polysorb suture. Skin was closed at all incisions using a subcuticular 4-0 Polysorb suture. Steri-Strips 2 x 2 gauze and Tegaderm were then applied. The patient tolerated the procedure well. Sponge, instrument, needle counts reported as correct. The patient was transferred to PACU in stable condition.
[2021-07-27] MEDS: oxyCODONE HCl Immed Release 5 MG TABLET PO (10:14)
--- NOTE | 2021-07-27 11:59 | P.DS_ITS ---
DS: Providers Provider Date of Service: 07/27/21 Date of admission: 07/26/21 18:26 Date of discharge: 07/27/21 Primary care physician: Unknown Physician Admitting clinician: Dario Mcdermott Discharging clinician: Dario Mcdermott DS: Diagnosis Discharge Diagnosis (1) Acute appendicitis: Status: Acute DS: Summary Hospital Course Hospital Course: Damien Roberts JR is a 31 year old male Patient presenting with complaints of right lower quadrant abdominal pain since 07:00 o'clock this morning. He reports a previous episode of similar pain November 2020. At that time he was diagnosed with early appendicitis and treated with IV antibiotics. He was subsequently switched to oral antibiotics and discharged to home. He remained asymptomatic until this morning when he again developed similar pain in the right upper quadrant. Pain was associated with nausea and vomiting, and seemed to increase in severity throughout the day . He denies fever or chills. He subsequently presented to the emergency department for further evaluation. In emergency department he was noted to be tender in the right lower quadrant. [place] [address] [place] of the abdomen pelvis again s howed a dilated appendix which was fluid filled with inflammatory changes. There is no evidence of perforation. Patient is admitted for further management of the acute appendicitis. Patient was subsequently admitted to the surgical service and placed on IV antibiotics. He was taken to the OR on Thursday07/27/2021 for a laparoscopic appendectomy. Operative findings were consistent with an acute non perforated appendicitis. He tolerated the procedure well. He was subsequently started on regular diet on postoperative day 0. He felt comfortable with minimal incisional pain. After tolerating a regular diet on postoperative day 0 he felt well enough to be discharged home and requested discharge. He was subsequently discharged on 07/27/2021 in stable condition. Discharge instructions were to avoid lifting greater than 10 lb for the next 2 weeks. He should follow up in my office in approximately 1 week for wound examination. He also should call the office as needed for fever, chills, nausea, vomiting, or increased abdominal pain. He expressed understanding and agrees with the plan. Time spent discussing smoking cessation with patient: 3 to 10 minutes Status at Discharge Functional status at discharge: independent ambulation Overall status at discharge: patient is back to baseline Time Spent with Patient Time attestation: Total time spent providing and/or coordinating discharge services: Discharge coordination time: Less than 30 minutes Quality: Safe Use of Opioids Does Pt have an Active Cancer Diagnosis on the Problem List?: No Quality: Stroke Does the patient have a stroke diagnosis?: No Physical Exam Vital Signs: Vital Signs: Last Vital Signs Temp 97.0 F 07/27/21 09:50 Pulse 70 07/27/21 10:10 Resp 16 07/27/21 10:10 BP 134/92 H 07/27/21 10:10 Pulse Ox 97 07/27/21 10:10 BMI result Body Mass Index 26.4 Const: General: no acute distress Nutritional Appearance: well nourished Orientation/consciousness: patient oriented x3 Limitations: no limitations Resp: Effort & Inspection: normal respiratory effort and no respiratory distress GI: Inspection: Yes normal to inspection Palpation (GI): Soft to palpation Percussion: Yes normal to percussion Auscultation: normal bowel sounds Rectal Exam - Male: Yes deferred Skin: General skin exam: no rashes or lesions noted Neuro: General: patient oriented x3 DS: Data Data Completed and Pending Pending studies at discharge: Pending at discharge 07/27/21 09:14 Surgical [PTH] Routine Labs on day of discharge: Laboratory Results - last 24 hr 07/26/21 07/26/21 07/26/21 11:51 16:36 20:32 WBC RBC Hgb Hct MCV MCH MCHC RDW Plt Count MPV Immature Gran % (Auto) Neut % (Auto) Lymph % (Auto) [place] % (Auto) Eos % (Auto) Baso % (Auto) Lymph # (Auto) [place] # (Auto) Eos # (Auto) Baso # (Auto) Abs Immat Gran (auto) Absolute Neuts (auto) Absolute Nucleated RBC Nucleated RBC % (auto) Sodium 138 Potassium 4.2 Chloride 102 Carbon Dioxide 26 Anion Gap 14 BUN 19 H Creatinine 1.05 Estim Creat Clear Calc 109.8 Estimated GFR > 60 Random Glucose 145 H Lactic Acid 1.3 Calcium 10.2 D Total Bilirubin 1.0 Direct Bilirubin 0.4 AST 29 ALT 35 Alkaline Phosphatase 110 Total Protein 7.2 Albumin 4.4 Lipase 32 Urine Color YELLOW Urine Appearance CLEAR Urine pH 6.0 Ur Specific [place] 1.020 Urine Protein NEG Urine Glucose (UA) NEG Urine Ketones NEG Urine Blood NEG Urine Nitrite NEG Ur Leukocyte Esterase NEG COVID-19 ([facility]) COVID-19 Clin Com Influenza Type A (PCR) Influenza Type B (PCR) RSV RNA Qual (PCR) SARS-CoV-2 RNA (RT-PCR) 07/26/21 07/26/21 07/27/21 20:41 22:26 06:01 WBC 6.3 RBC 4.85 Hgb 14.5 Hct 43.3 MCV 89.3 MCH 29.9 MCHC 33.5 RDW 13.3 Plt Count 175 MPV 10.3 Immature Gran % (Auto) 0.3 Neut % (Auto) 65.3 Lymph % (Auto) 22.9 [place] % (Auto) 10.2 Eos % (Auto) 0.8 Baso % (Auto) 0.5 Lymph # (Auto) 1.4 [place] # (Auto) 0.6 Eos # (Auto) 0.1 Baso # (Auto) 0.0 Abs Immat Gran (auto) 0.02 Absolute Neuts (auto) 4.1 Absolute Nucleated RBC 0.000 Nucleated RBC % (auto) 0.0 Sodium Potassium Chloride Carbon Dioxide Anion Gap BUN Creatinine Estim Creat Clear Calc Estimated GFR Random Glucose Lactic Acid Calcium Total Bilirubin Direct Bilirubin AST ALT Alkaline Phosphatase Total Protein Albumin Lipase Urine Color Urine Appearance Urine pH Ur Specific [place] Urine Protein Urine Glucose (UA) Urine Ketones Urine Blood Urine Nitrite Ur Leukocyte Esterase COVID-19 ([facility]) Negative COVID-19 Clin Com See Note Influenza Type A (PCR) NEGATIVE Influenza Type B (PCR) NEGATIVE RSV RNA Qual (PCR) NEGATIVE SARS-CoV-2 RNA (RT-PCR) NEGATIVE Imaging CT scan - abdomen: Radiologist's impression: ITS Impressions Abdomen/Pelvis CT 07/26/21 17:12 IMPRESSION: The appendix is dilated to 1.0 cm and fluid-filled, with mild surrounding inflammatory changes suggesting acute appendicitis. No organized fluid collection or extraluminal air to suggest perforation. The findings and recommendations were discussed with Jorge Parr MD by telephone at 07/26/2021 6:00 PM and it was ascertained that the content and urgency of the report was understood at the time of direct communication. Discharge Plan Discharge Patient Disposition: Home, Self-Care Discharge Diagnosis: Acute appendicitis Referrals: Dario Mcdermott MD [Physician] - 1 Week Physician,Bianca Bauer [Primary Care Provider] - 1 Week Discharge Medications: New oxycodone-acetaminophen [Endocet] 5-325 mg tablet 1 tab PO Q6H PRN (Reason: pain (scale score 7-10)) Qty: 14 0RF Discharge Orders: Discharge Order (Routine); Ordered 07/27/21 Ordered By: Dario Mcdermott Diet: advance to usual diet Activity on Discharge: No heavy lifting Stand Alone Forms: Patient Portal Discharge page, Work/School Release Care Plan Goals: Return to normal activity and diet Health Concerns: Abdominal pain in the lower right abdomen Plan of Treatment: Laparoscopic appendectomy on 07/27/2021 Assessment: Acute appendicitis Discharge Date/Time: 07/27/21 12:40
--- NOTE | 2021-07-29 14:12 | HO.POSTANES ---
Post Anesthesia Evaluation Post Anesthesia Evaluation Vital Signs: Patient seen at 630am. Vital signs were stable Anesthesia: General Endotracheal-GETA Mental Status: Awake Pain Control: Satisfactory Nausea/Vomiting: None Hydration: Adequate Anesthesia-Related Issues: No Anes. Related Issues
== END 2021-07-27 12:40 | disposition home or self-care (01) | DRG 343 ==
LOC: HO.ED 20:05 → HO.EDOVER 20:12 → HO.S3 22:53
PROVIDERS: Admitting Provider Surgery; Emergency Provider Internal Medicine; Visit Provider Surgery
PROC: 0DTJ4ZZ Resection of Appendix, Percutaneous Endoscopic Approach (ICD-10-PCS; CPT 44970; principal; 2021-07-27 08:00)
DX: K35.80 Unspecified acute appendicitis (principal); Z20.822 Contact with and (suspected) exposure to COVID-19
CPT/HCPCS: 0241U; 36415; 74176; 80048; 80076; 81003; 83605; 83690; 85025; 87040; 87635; 88304; 96360; 99285; J0131; J1100; J1885; J2250; J2405; J2543; J3010

== ENCOUNTER → 2021-08-06 09:46 | Outpatient (BNVA) | payer OTHER, SELFPAY | PROVIDERS: Visit Provider Surgery | DX: Z48.815 Encounter for surgical aftercare following surgery on the digestive system (principal); Z87.19 Personal history of other diseases of the digestive system | CPT/HCPCS: 99212 ==

== ENCOUNTER 2022-04-15 08:05 | Emergency (ER) | payer OTHER, SELFPAY ==
--- NOTE | ~2022-04-15 | US_ITS ---
EXAMINATION: US ABDOMEN LIMITED CLINICAL INFORMATION: Right upper quadrant and epigastric pain. COMPARISON: None TECHNIQUE: Real-time imaging of the right upper quadrant abdominal viscera. FINDINGS: PANCREAS: Visualized portions unremarkable; tail obscured by interposed bowel gas. LIVER: Normal. The liver is normal in size. The liver contour is normal. Parenchymal echogenicity is normal. No focal hepatic lesion. There is no intrahepatic biliary duct dilatation seen. GALLBLADDER: Normal. The gallbladder is physiologically distended without evidence of stones, sludge, polyps, wall thickening or pericholecystic fluid. Sonographic Anguiano sign is negative. COMMON BILE DUCT: Normal in caliber measuring 0.3 cm in diameter. RIGHT KIDNEY: Normal. No hydronephrosis. No renal calculi or focal parenchymal lesions. The kidney measures 10.4 cm in maximum dimension. FREE FLUID: None. US/US abdomen limited IMPRESSION: Unremarkable right upper quadrant ultrasound.
[2022-04-15 08:17] VITALS: BP 174/108; PULSE 90; RESP 16; TEMP 36.8; O2SAT 100; BMI 27.6
[2022-04-15 08:29] LABS: MANUAL DIFF FLAG NO
[2022-04-15 08:41] LABS: Basophils Absolute Auto 0.1 X10*3/uL (0.0-0.2); Basophils Percent Auto 0.8 % (0-2); Eosinophils Absolute Auto 0.1 X10*3/uL (0.0-0.4); Eosinophils Percent Auto 1.1 % (0-4); Hematocrit 49.6 % (42.0-52.0); Hemoglobin 16.5 g/dl (14.0-18.0); Imm Gran Abs Auto 0.01 X10*3/uL (0.00-0.03); Imm Gran Pct Auto 0.1 % (0.0-0.4); Lymphocytes Absolute Auto 2.7 X10*3/uL (1.2-4.9); Lymphocytes Percent Auto 34.5 % (20-40); Mean Corpuscular HGB Conc 33.3 g/dl (31.0-36.0); Mean Corpuscular Hemoglobin 29.9 pg (27.0-33.0); Mean Corpuscular Volume 89.9 fL (80.0-98.0); Mean Platelet Volume 9.7 fL (9.4-12.4); Monocytes Absolute Auto 0.6 X10*3/uL (0.1-1.2); Monocytes Percent Auto 8.1 % (2-11); Neutrophils Absolute Auto 4.4 x10*3/uL (2.0-8.3); Neutrophils Percent Auto 55.4 % (45-73); Platelet Count 257 X10*3/uL (160-400); Red Blood Count 5.52 X10*6/uL (4.60-5.80); Red Cell Distribution Width 13.5 % (11.0-16.0); White Blood Count 7.9 X10*3/uL (4.8-10.8)
[2022-04-15 08:46] LABS: IDNOW Serial# BCCEAD1C
[2022-04-15 08:47] LABS: COVID-19 Test Negative (Negative)
[2022-04-15 08:48] LABS: IDNOW Serial# 9DB6401D; Influenza A Negative (Negative); Influenza B2 Negative (Negative)
[2022-04-15 08:50] LABS: Anion Gap 13 (12-20); Blood Urea Nitrogen 21 mg/dL (9-16); Calcium 9.6 mg/dL (8.4-10.2); Carbon Dioxide 29 mmol/L (22-29); Chloride 106 mmol/L (96-108); Creatinine Clr Calc Pharmacy 122.6; Estimated Glomerular Filt Rate > 60; Glucose Random 112 mg/dL (60-115); Potassium 4.1 mmol/L (3.3-5.1); Sodium 144 mmol/L (135-145)
[2022-04-15 09:33] LABS: Alanine Aminotransferase 27 U/L (0-40); Alkaline Phosphatase 116 U/L (39-117); Aspartate Amino Transferase 25 U/L (5-37); Bilirubin Direct 0.3 mg/dL (0.0-0.5); Bilirubin Total 1.2 mg/dL (0.0-1.0); Lipase 61 U/L (8-78); Total Protein 6.6 g/dL (6.5-8.0)
--- NOTE | 2022-04-15 09:46 | ED_ITS ---
HPI - Abdominal Pain General Chief Complaint: Abdominal Pain Stated Complaint: Abd pain Time Seen by Provider: 04/15/22 08:53 Source: patient Mode of arrival: ambulatory Limitations: no limitations History of Present Illness HPI narrative: Patient is a 31-year-old male presents emergency department for evaluation of abdominal pain. He reports symptom onset 3 days ago. Pain is localized diffusely across the upper abdomen, predominantly epigastric at times radiates to left upper quadrant and right upper quadrant. He reports associated nausea and vomiting on the first day of symptoms. Denies nausea or vomiting yesterday or today. He reports the pain to be constant, described as burning/ gnawing sensation with variable intensity. He states at times it is noted to be worse after eating, and while lying flat. Feels radiation of a burning sensation up the middle of his chest. He denies any history of similar pain in the past. Denies daily alcohol consumption, use of OTC pain medications. He does endorse looser stools than normal, however does not atypical for him to have at least 6 bowel movements daily. Denies fevers/ chills, but has felt cold sometimes . denies lower abdominal pain, constipation, bloody or dark stools, dysuria, urinary frequency. Related Data Previous Rx's Medication Instructions Recorded cephalexin 500 mg capsule 500 mg PO Q8H 10 days #30 caps 07/30/21 aluminum-mag hydroxide-simethicone 10 ml PO QID PRN indigestion #355 04/15/22 200 mg-200 mg-20 mg/5 mL oral susp mL (Maalox Advanced) omeprazole 40 mg capsule,delayed 40 mg PO DAILY #14 caps 04/15/22 release Allergies Allergy/AdvReac Type Severity Reaction Status Date / Time No Known Allergies Allergy Unverified 12/01/19 16:08 [No Known Allergies*] Review of Systems Review of Systems Constitutional : No Weight loss, No Fever, No Chills ENT/Mouth :? No sore throat, No Rhinorrhea Eyes: No Swelling, No Redness Cardiovascular : No Chest Pain, No SOB, No Edema Respiratory : No Cough, No Sputum, No Wheezing Gastrointestinal : No Nausea, no Vomiting, positive Diarrhea, positive abdominal pain, No Hematochezia, No Melena Genitourinary : No Dysuria, No Urinary Frequency, No Hematuria, No Urgency? Musculoskeletal : No joint pain, No Myalgias, No Joint Swelling Skin : No Skin Lesions, No rash Neuro : No Weakness, No Numbness, No Dizziness, No Headache Psych : No Anxiety/Panic, No Depression Heme/Lymph: No Bruising, No Lymphadenopathy Endocrine : No Polyuria, No Polydipsia Yes all other systems are reviewed and are negative [facility] Past Medical History Attestation statement: The following information was validated with the patient. Source: old records reviewed Medical History Acute appendicitis Surgical History History of laparoscopic appendectomy (07/27/21) Social History Social History Household Members: Children Housing: Apartment Patient Tobacco Use Status: Never used Tobacco Smoked in Last 30 Days: Yes e-Cigarette/Vaping Use: Never Used Second Hand Smoke Exposure: No Advance Directives: No Advance Directives Information Provided: No Physical Exam ED Vital Signs: Vital Signs - 24 hr 04/15/22 08:17 04/15/22 10:06 Temperature 98.2 F Pulse Rate 90 Respiratory Rate 16 16 Blood Pressure 174/108 H Pulse Oximetry 100 Oxygen Delivery Method Room Air BMI result Body Mass Index 27.6 Appearance: Alert.?Oriented to person, place and time. No acute distress.?Normal affect. Eyes: Pupils equal, round and reactive to light.? ENT: Pharynx normal.?? Neck: Normal inspection.? Neck supple.?? CVS: Heart sounds normal. Normal heart rate and rhythm.? Pulses normal.?? Respiratory: No respiratory distress.? Lung sounds clear to auscultation bilaterally?? Abdomen: Soft with epigastric and right upper quadrant tenderness upon palpation, negative Anguiano sign. Lower abdomen without any tenderness upon palpation, no rigidity, no guarding.. Normoactive bowel sounds. Skin: Skin warm and dry.? Normal skin color.? Extremities: No lower extremity edema.? Neuro: Moves all extremities spontaneously. Sensation intact bilaterally. CN II- XII intact. No focal neuro deficits. Ambulates with normal steady gait. Course Reevaluation(s) Reevaluation #1: CBC reveals no leukocytosis, no anemia. CMP is overall unremarkable, lipase within normal limits. Urinalysis without evidence of infection or microscopic hematuria. Influenza and COVID- 19 testing are negative. Right upper quadrant ultrasound unremarkable, no evidence of cholelithiasis, gallbladder wall thickening, cholecystitis. Symptoms significantly improved with GI cocktail. At this time I suspect symptoms are most consistent with gastritis /acid reflux. Discussed plan of care for discharge, omeprazole daily, Maalox as needed, outpatient follow-up with primary care provider for persistent symptoms. Reviewed worrisome signs and symptoms that would warrant re-evaluation in the emergency department. All questions answered. Patient stable for discharge. Tolerating oral intake at the time of discharge. Time: 12:41 Medical Decision Making Medical Decision Making [facility] Narrative: Patient is a 31-year-old male with past medical history of appendicitis s/p appendectomy 07/2021, presenting to emergency department for evaluation of upper abdominal pain as noted in HPI. At the time of examination he is overall well- appearing, afebrile without tachycardia tachypnea or hypoxia. Initial BP noted to be elevated, may be in response to pain, will re-evaluate this. Upper abdominal tenderness upon palpation. Will obtain CBC to evaluate for leukocytosis/ anemia, CMP and lipase to evaluate for abnormal electrolytes /abnormal renal function/ abnormal hepatic/biliary function, Ultrasound of the right upper quadrant. Will trial GI cocktail for pain management at this time. Differential Diagnosis Differential Diagnoses: The differential diagnosis associated with the presentation includes ( Cholelithiasis, cholecystitis, biliary colic, gastritis, PUD, GERD, gastroenteritis, pneumonia) Lab Data [facility] Lab Attestation statement: I reviewed the patient's lab results. 04/15/22 08:25 04/15/22 08:25 Labs: Lab Results 04/15/22 04/15/22 04/15/22 Range/Units 08:25 08:25 08:25 WBC 7.9 (4.8-10.8) X10*3/uL RBC 5.52 (4.60-5.80) X10*6/uL Hgb 16.5 (14.0-18.0) g/dl Hct 49.6 (42.0-52.0) % MCV 89.9 (80.0-98.0) fL MCH 29.9 (27.0-33.0) pg MCHC 33.3 (31.0-36.0) g/dl RDW 13.5 (11.0-16.0) % Plt Count 257 D (160-400) X10*3/uL MPV 9.7 (9.4-12.4) fL Immature Gran % (Auto) 0.1 (0.0-0.4) % Neut % (Auto) 55.4 (45-73) % Lymph % (Auto) 34.5 (20-40) % [place] % (Auto) 8.1 (2-11) % Eos % (Auto) 1.1 (0-4) % Baso % (Auto) 0.8 (0-2) % Lymph # (Auto) 2.7 (1.2-4.9) X10*3/uL [place] # (Auto) 0.6 (0.1-1.2) X10*3/uL Eos # (Auto) 0.1 (0.0-0.4) X10*3/uL Baso # (Auto) 0.1 (0.0-0.2) X10*3/uL Abs Immat Gran (auto) 0.01 (0.00-0.03) X10*3/uL Absolute Neuts (auto) 4.4 (2.0-8.3) x10*3/uL Absolute Nucleated RBC 0.000 (0.0-0.012) X10*3/uL Nucleated RBC % (auto) 0.0 (0.0-0.2) /100WBC Sodium 144 (135-145) mmol/L Potassium 4.1 (3.3-5.1) mmol/L Chloride 106 (96-108) mmol/L Carbon Dioxide 29 (22-29) mmol/L Anion Gap 13 (12-20) BUN 21 H (9-16) mg/dL Creatinine 0.94 (0.5-1.4) mg/dL Estim Creat Clear Calc 122.6 Estimated GFR > 60 Random Glucose 112 (60-115) mg/dL Calcium 9.6 (8.4-10.2) mg/dL Total Bilirubin 1.2 H (0.0-1.0) mg/dL Direct Bilirubin 0.3 (0.0-0.5) mg/dL AST 25 (5-37) U/L ALT 27 (0-40) U/L Alkaline Phosphatase 116 (39-117) U/L Total Protein 6.6 (6.5-8.0) g/dL Albumin 4.0 (3.5-5.0) g/dL Lipase 61 (8-78) U/L Urine Color Urine Appearance Urine pH (5.0-9.0) Ur Specific [place] (1.005-1.025) Urine Protein (Neg-Trace) mg/dL Urine Glucose (UA) (Negative) mg/dL Urine Ketones (Negative) mg/dL Urine Blood (Negative) Urine Nitrite (Negative) Ur Leukocyte Esterase (Negative) COVID-19 ([facility]) (Negative) COVID-19 Clin Com Influenza Type A (GWEN) Negative (Negative) Influenza Type B (GWEN) Negative (Negative) Influenza A & B Note See Note 04/15/22 04/15/22 Range/Units 08:25 11:00 WBC (4.8-10.8) X10*3/uL RBC (4.60-5.80) X10*6/uL Hgb (14.0-18.0) g/dl Hct (42.0-52.0) % MCV (80.0-98.0) fL MCH (27.0-33.0) pg MCHC (31.0-36.0) g/dl RDW (11.0-16.0) % Plt Count (160-400) X10*3/uL MPV (9.4-12.4) fL Immature Gran % (Auto) (0.0-0.4) % Neut % (Auto) (45-73) % Lymph % (Auto) (20-40) % [place] % (Auto) (2-11) % Eos % (Auto) (0-4) % Baso % (Auto) (0-2) % Lymph # (Auto) (1.2-4.9) X10*3/uL [place] # (Auto) (0.1-1.2) X10*3/uL Eos # (Auto) (0.0-0.4) X10*3/uL Baso # (Auto) (0.0-0.2) X10*3/uL Abs Immat Gran (auto) (0.00-0.03) X10*3/uL Absolute Neuts (auto) (2.0-8.3) x10*3/uL Absolute Nucleated RBC (0.0-0.012) X10*3/uL Nucleated RBC % (auto) (0.0-0.2) /100WBC Sodium (135-145) mmol/L Potassium (3.3-5.1) mmol/L Chloride (96-108) mmol/L Carbon Dioxide (22-29) mmol/L Anion Gap (12-20) BUN (9-16) mg/dL Creatinine (0.5-1.4) mg/dL Estim Creat Clear Calc Estimated GFR Random Glucose (60-115) mg/dL Calcium (8.4-10.2) mg/dL Total Bilirubin (0.0-1.0) mg/dL Direct Bilirubin (0.0-0.5) mg/dL AST (5-37) U/L ALT (0-40) U/L Alkaline Phosphatase (39-117) U/L Total Protein (6.5-8.0) g/dL Albumin (3.5-5.0) g/dL Lipase (8-78) U/L Urine Color Yellow Urine Appearance Clear Urine pH 7.0 (5.0-9.0) Ur Specific [place] <= 1.005 (1.005-1.025) Urine Protein Negative (Neg-Trace) mg/dL Urine Glucose (UA) Negative (Negative) mg/dL Urine Ketones Negative (Negative) mg/dL Urine Blood Negative (Negative) Urine Nitrite Negative (Negative) Ur Leukocyte Esterase Negative (Negative) COVID-19 ([facility]) Negative (Negative) COVID-19 Clin Com See Note Influenza Type A (GWEN) (Negative) Influenza Type B (GWEN) (Negative) Influenza A & B Note Independent Interpretation I performed an independent interpretation of an: Ultrasound Radiology Impression Discussion of test interpretation with radiology: I have reviewed the radiologist's reading. Radiologist Impression: US/US abdomen limited IMPRESSION: Unremarkable right upper quadrant ultrasound. Prescription Management I considered prescription management with: Pain Medication and Other ( Antacid) Medications Administered Discontinued Medications Generic Name Dose Route Start Last Admin Trade Name Freq PRN Reason Stop Dose Admin Al Hydroxide/Mg Hydroxide 30 ml 04/15/22 09:38 04/15/22 10:01 Magnesium Hydrox/Alum Hydrox 30 Ml Oral.Susp PO 04/15/22 09:39 30 ml ONCE ONE Administration Famotidine 20 mg 04/15/22 09:38 04/15/22 10:01 Famotidine/Pf 20 Mg/2 Ml Vial IVPUSH 04/15/22 09:39 20 mg ONCE ONE Administration Sodium Chloride 1,000 mls @ 999 mls/hr 04/15/22 09:45 04/15/22 11:37 Ns IV 04/15/22 10:45 Infused .Q1H1M CONCHIS Infusion Lidocaine HCl 15 ml 04/15/22 09:38 04/15/22 10:01 Lidocaine Hcl Viscous 2 % 15 Ml Solution MUCOUS MEM 04/15/22 09:39 15 ml ONCE ONE Administration Discharge Plan Discharge Clinical Impression: Gastritis Patient Disposition: Home, Self-Care Instructions: Gastritis (ED), Diet for Stomach Ulcers and Gastritis (ED) Additional Instructions: Take omeprazole daily and Maalox as needed. Avoid triggers such as fatty foods, spicy foods, tomatoes, onions, coffee, tea, chocolate, and alcohol. Remaining upright after meals for 1-2 hours. Avoid ea ting at least 3 hours before bedtime. Try sleeping on an incline if possible. Contact primary care provider to arrange for a follow-up visit for persistent symptoms. You may return back to emergency department any new or worsening symptoms or concerns. Prescriptions: New omeprazole 40 mg capsule,delayed release(DR/EC) 40 mg PO DAILY Qty: 14 0RF alum-mag hydroxide-simeth [Maalox Advanced] 200-200-20 mg/5 mL suspension 10 ml PO QID PRN (Reason: indigestion) Qty: 355 0RF Rx Instructions: administer between meals and at bedtime No Action cephalexin 500 mg capsule 500 mg PO Q8H 10 Days Qty: 30 0RF Referrals: Christen Rowland MD [Primary Care Provider] - Interventions: ED Discharge Assessment Last Done: 04/15/22 13:03 Discharge Date/Time: 04/15/22 13:03
[2022-04-15] MEDS: Lidocaine HCl Viscous 2 % 15 ML SOLUTION MUCOUS MEM (10:01)
[2022-04-15] MEDS: Famotidine/PF 20 MG/2 ML VIAL IVPUSH (10:01)
[2022-04-15] MEDS: 0.9 % Sodium Chloride 1,000 ML 999 ML IV (10:01)
[2022-04-15] MEDS: Magnesium Hydrox/Alum Hydrox 30 ML ORAL.SUSP PO (10:01)
[2022-04-15 10:06] VITALS: RESP 16
--- NOTE | 2022-04-15 10:08 | PC.NURSE ---
Alert and oriented, resp even and unlabored. RUQ pain starting on thursday, unknown origin. IV established, medicated per the MAR.
[2022-04-15 11:09] LABS: Appearance Urine Clear; Color Urine Yellow; Glucose Urine UA Negative (Negative); Leukocyte Esterase Urine Negative (Negative); Nitrite Urine Negative (Negative); Specific Gravity - Urine <= 1.005 (1.005-1.025); Urine Blood Negative (Negative); Urine Ketones Negative (Negative); Urine Protein Negative (Neg-Trace)
== END 2022-04-15 13:03 | disposition home or self-care (01) ==
PROVIDERS: Nurse Practitioner Family; Emergency Provider Emergency Medicine; PCP Internal Medicine
DX: K29.70 Gastritis, unspecified, without bleeding (principal); R10.10 Upper abdominal pain, unspecified; Z20.822 Contact with and (suspected) exposure to COVID-19; Z79.899 Other long term (current) drug therapy
CPT/HCPCS: 76705; 80048; 80076; 81003; 83690; 85025; 87502; 87635; 96361; 96374; 99284

== ENCOUNTER 2022-05-20 12:34 | Outpatient (REF) | payer OTHER, SELFPAY ==
[2022-05-20 14:33] LABS: MANUAL DIFF FLAG NO
[2022-05-20 14:39] LABS: Basophils Absolute Auto 0.1 X10*3/uL (0.0-0.2); Basophils Percent Auto 0.8 % (0-2); Eosinophils Percent Auto 0.2 % (0-4); Hematocrit 47.1 % (42.0-52.0); Hemoglobin 15.3 g/dl (14.0-18.0); Imm Gran Abs Auto 0.01 X10*3/uL (0.00-0.03); Imm Gran Pct Auto 0.2 % (0.0-0.4); Lymphocytes Absolute Auto 1.6 X10*3/uL (1.2-4.9); Lymphocytes Percent Auto 25.2 % (20-40); Mean Corpuscular HGB Conc 32.5 g/dl (31.0-36.0); Mean Corpuscular Hemoglobin 29.4 pg (27.0-33.0); Mean Corpuscular Volume 90.6 fL (80.0-98.0); Mean Platelet Volume 10.8 fL (9.4-12.4); Monocytes Absolute Auto 0.4 X10*3/uL (0.1-1.2); Monocytes Percent Auto 6.9 % (2-11); Neutrophils Absolute Auto 4.2 x10*3/uL (2.0-8.3); Neutrophils Percent Auto 66.7 % (45-73); Platelet Count 253 X10*3/uL (160-400); Red Cell Distribution Width 13.5 % (11.0-16.0); White Blood Count 6.3 X10*3/uL (4.8-10.8)
[2022-05-20 15:05] LABS: Alanine Aminotransferase 32 U/L (0-40); Albumin Level 4.1 g/dL (3.5-5.0); Alkaline Phosphatase 99 U/L (39-117); Anion Gap 11 (12-20); Aspartate Amino Transferase 31 U/L (5-37); Bilirubin Total 0.6 mg/dL (0.0-1.0); Blood Urea Nitrogen 19 mg/dL (9-16); Calcium 9.4 mg/dL (8.4-10.2); Carbon Dioxide 29 mmol/L (22-29); Chloride 106 mmol/L (96-108); Cholesterol 193 mg/dL; Estimated Glomerular Filt Rate > 60; Glucose Fasting 112 mg/dL (60-99); HDL Cholesterol 65 mg/dL; LDL Cholesterol Calculated 109 mg/dl; Potassium 4.2 mmol/L (3.3-5.1); Sodium 142 mmol/L (135-145); Total Protein 6.6 g/dL (6.5-8.0); Triglycerides 96 mg/dL
[2022-05-20 15:19] LABS: Thyroid Stimulating Hormone 1.12 uIU/mL (0.32-4.0)
== END 2022-05-20 12:35 | disposition home or self-care (01) ==
LOC: HO.10HDL 12:34
PROVIDERS: Visit Provider Internal Medicine
DX: Z00.00 Encounter for general adult medical examination without abnormal findings (principal); E88.2 Lipomatosis, not elsewhere classified; I10 Essential (primary) hypertension; I83.813 Varicose veins of bilateral lower extremities with pain; Z72.0 Tobacco use
CPT/HCPCS: 36415; 80053; 80061; 84443; 85025

== ENCOUNTER → 2022-05-29 15:34 | Outpatient (BNVA) | payer OTHER, SELFPAY | PROVIDERS: PCP Internal Medicine; Referring Provider Internal Medicine; Visit Provider Surgery | DX: L02.91 Cutaneous abscess, unspecified (principal); L72.3 Sebaceous cyst | CPT/HCPCS: 10060 ==

== ENCOUNTER → 2022-06-05 15:28 | Outpatient (BNVA) | payer OTHER, SELFPAY | PROVIDERS: PCP Internal Medicine; Visit Provider Surgery | DX: Z13.89 Encounter for screening for other disorder (principal) ==

== ENCOUNTER 2022-09-24 00:39 | Emergency (ER) | payer OTHER, SELFPAY ==
[2022-09-24 01:06] VITALS: BP 148/103; PULSE 91; RESP 18; TEMP 36.7; O2SAT 97; BMI 27.1
[2022-09-24 01:30] LABS: Basophils Absolute Auto 0.1 X10*3/uL (0.0-0.2); Basophils Percent Auto 1.2 % (0-2); Eosinophils Absolute Auto 0.2 X10*3/uL (0.0-0.4); Eosinophils Percent Auto 3.2 % (0-4); Hematocrit 45.4 % (42.0-52.0); Hemoglobin 15.3 g/dl (14.0-18.0); Imm Gran Abs Auto 0.01 X10*3/uL (0.00-0.03); Imm Gran Pct Auto 0.2 % (0.0-0.4); Lymphocytes Absolute Auto 2.3 X10*3/uL (1.2-4.9); Lymphocytes Percent Auto 39.7 % (20-40); MANUAL DIFF FLAG NO; Mean Corpuscular HGB Conc 33.7 g/dl (31.0-36.0); Mean Corpuscular Hemoglobin 29.9 pg (27.0-33.0); Mean Corpuscular Volume 88.8 fL (80.0-98.0); Mean Platelet Volume 9.3 fL (9.4-12.4); Monocytes Absolute Auto 0.5 X10*3/uL (0.1-1.2); Neutrophils Absolute Auto 2.8 x10*3/uL (2.0-8.3); Neutrophils Percent Auto 47.7 % (45-73); Platelet Count 244 X10*3/uL (160-400); Red Blood Count 5.11 X10*6/uL (4.60-5.80); Red Cell Distribution Width 13.6 % (11.0-16.0); White Blood Count 5.9 X10*3/uL (4.8-10.8)
[2022-09-24 01:49] LABS: Alanine Aminotransferase 35 U/L (0-40); Alkaline Phosphatase 121 U/L (39-117); Anion Gap 15 (12-20); Aspartate Amino Transferase 34 U/L (5-37); Bilirubin Total 0.9 mg/dL (0.0-1.0); Blood Urea Nitrogen 19 mg/dL (9-16); Calcium 10.2 mg/dL (8.4-10.2); Carbon Dioxide 22 mmol/L (22-29); Chloride 106 mmol/L (96-108); Creatinine Clr Calc Pharmacy 132.8; Estimated Glomerular Filt Rate > 60; Glucose Random 108 mg/dL (60-115); Potassium 3.8 mmol/L (3.3-5.1); Sodium 139 mmol/L (135-145); Total Protein 6.8 g/dL (6.5-8.0)
[2022-09-24 07:17] VITALS: BP 149/97; PULSE 74; RESP 16; O2SAT 100
--- NOTE | 2022-09-24 08:13 | ECG_ITS ---
Test Reason : alcohol withdrawl Blood Pressure : / mmHG Vent. Rate : 077 BPM Atrial Rate : 077 BPM P-R Int : 126 ms QRS Dur : 110 ms QT Int : 384 ms P-R-T Axes : 053 -10 005 degrees QTc Int : 434 ms Normal sinus rhythm with sinus arrhythmia Possible Left atrial enlargement Borderline ECG No previous ECGs available Referred By: Tuyet Delarosa Electronically Signed By:GRUPO LIU MD
--- NOTE | 2022-09-24 08:26 | ED.GENADULT ---
HPI - General Adult General Chief complaint: Extremity Problem Stated complaint: body pain, numbness Time Seen by Provider: 09/24/22 07:42 Source: patient Mode of arrival: ambulatory Limitations: no limitations History of Present Illness HPI narrative: 32 yo male here with c/o tingling in both legs lower legs and now R arm on and off for 2 years it is a daily thing but over the past month seems to be worse. He stopped drinking ETOH 3 to 4 days ago and now has diarrhea - his tingling has preceded this. He is wondering if he has some withdrawal. He takes no vitamins. He wants to stop drinking and is now going to AA - he tried to cut down to 4 shots a day but was up to 1 L per day. No headache, noted his ankles are swollen. He feels dizzy when he stands at times. He has no CP/SOB. He states he has never been worked up for his tingling in the last 2 years. MD complaint: tingling in extremities Onset (ago): year(s) (2) Location: lower extremity Radiation: non-radiation Severity: mild Quality: dull Pain Consistency: intermittent Relieving factors: none Exacerbating factors: none Associated symptoms: other (lightheaded) Treatments prior to arrival: none Related Data Previous Rx's Medication Instructions Recorded naltrexone 50 mg tablet 50 mg PO DAILY #32 tabs 09/24/22 thiamine HCl (vitamin B1) 100 mg 100 mg PO DAILY #30 tabs 09/24/22 tablet Allergies Allergy/AdvReac Type Severity Reaction Status Date / Time No Known Allergies Allergy Verified 06/05/22 15:35 [No Known Allergies*] Review of Systems Review of Systems: Constitutional : No Fever, No Chills ENT/Mouth : No sore throat, No Rhinorrhea Eyes: No Eye Pain, No Swelling, No Redness Cardiovascular : No Chest Pain, No SOB Respiratory : No Cough, No Sputum Gastrointestinal : No Nausea, No Vomiting, pos Diarrhea, No abdominal Pain Genitourinary : No Dysuria, No Hematuria Musculoskeletal : No joint pain, No Myalgias, No Joint Swelling Skin : No Skin Lesions, no skin rash Neuro : No Weakness, No Numbness, No Headache, pos tingling, pos dizziness Psych : No Anxiety, No Depression Heme/Lymph: No Bruising, No Bleeding,No Lymphadenopathy Endocrine : No Polyuria, No Polydipsia All other systems reviewed and are negative [facility] Past Medical History Attestation statement: The following information was validated with the patient. Medical History Acute appendicitis Surgical History History of incision and drainage (~05/29/22) History of laparoscopic appendectomy (07/27/21) Social History Social History Household Members: Children Housing: Apartment Alcohol intake: current Patient Tobacco Use Status: Never used Tobacco e-Cigarette/Vaping Use: Never Used Second Hand Smoke Exposure: No Physical Exam ED Vital Signs: Vital Signs - 24 hr 09/24/22 01:06 09/24/22 07:17 Temperature 98.0 F Pulse Rate 91 74 Respiratory Rate 18 16 Blood Pressure 148/103 H 149/97 H Pulse Oximetry 97 100 Oxygen Delivery Method Room Air Room Air BMI result Body Mass Index 27.1 Appearance: Alert. Oriented X3. No acute distress. Eyes: Pupils equal, round and reactive to light. ENT: Pharynx normal. Neck: Normal inspection. Neck supple. CVS: Normal heart rate and rhythm. Pulses normal. Respiratory: No respiratory distress. Breath sounds normal. Abdomen: Soft and non-tender. Skin: Skin warm and dry. Normal skin color. Normal skin turgor. Extremities: No lower extremity edema. No calf ttp Neuro: Oriented X 3. No motor deficit. No sensory deficit. reflexes 2+ DTR in patella and achilles no clonus Medications Administered Discontinued Medications Generic Name Dose Route Start Last Admin Trade Name Jmq PRN Reason Stop Dose Admin Chlordiazepoxide HCl 50 mg 09/24/22 08:14 09/24/22 08:49 Chlordiazepoxide Hcl 25 Mg Capsule PO 09/24/22 08:15 50 mg ONCE ONE Administration Thiamine HCl 100 mg/ Sodium 101 mls @ 202 mls/hr 09/24/22 08:13 09/24/22 09:15 Chloride IV 09/24/22 08:42 Infused ONCE ONE Infusion Sodium Chloride 1,000 mls @ 999 mls/hr 09/24/22 08:15 09/24/22 10:00 Ns IV 09/24/22 09:15 Infused .Q1H1M CONCHIS Infusion Lorazepam 1 mg 09/24/22 08:36 09/24/22 08:49 Lorazepam 2 Mg/Ml Vial IVPUSH 09/24/22 08:37 1 mg STAT STA Administration Medical Decision Making Medical Decision Making [facility] Narrative: 32 yo male with heavy ETOH abuse here with c/o tingling in legs and arms and some diarrhea that was not preceding it with likely mild ETOH withdrawal - no delerium, VS stable, not toxic, GCS 15 will obtain ETOH level, hydrated, check vitamin levels, start on thiamine and given PO librium. 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 09/24/22 01:25 09/24/22 01:25 Labs: Lab Results 09/24/22 09/24/22 09/24/22 Range/Units 01:25 01:25 08:34 WBC 5.9 (4.8-10.8) X10*3/uL RBC 5.11 (4.60-5.80) X10*6/uL Hgb 15.3 (14.0-18.0) g/dl Hct 45.4 (42.0-52.0) % MCV 88.8 (80.0-98.0) fL MCH 29.9 (27.0-33.0) pg MCHC 33.7 (31.0-36.0) g/dl RDW 13.6 (11.0-16.0) % Plt Count 244 (160-400) X10*3/uL MPV 9.3 L (9.4-12.4) fL Immature Gran % (Auto) 0.2 (0.0-0.4) % Neut % (Auto) 47.7 (45-73) % Lymph % (Auto) 39.7 (20-40) % [place] % (Auto) 8.0 (2-11) % Eos % (Auto) 3.2 (0-4) % Baso % (Auto) 1.2 (0-2) % Lymph # (Auto) 2.3 (1.2-4.9) X10*3/uL [place] # (Auto) 0.5 (0.1-1.2) X10*3/uL Eos # (Auto) 0.2 (0.0-0.4) X10*3/uL Baso # (Auto) 0.1 (0.0-0.2) X10*3/uL Abs Immat Gran (auto) 0.01 (0.00-0.03) X10*3/uL Absolute Neuts (auto) 2.8 (2.0-8.3) x10*3/uL Absolute Nucleated RBC 0.000 (0.0-0.012) X10*3/uL Nucleated RBC % (auto) 0.0 (0.0-0.2) /100WBC Sodium 139 (135-145) mmol/L Potassium 3.8 (3.3-5.1) mmol/L Chloride 106 (96-108) mmol/L Carbon Dioxide 22 (22-29) mmol/L Anion Gap 15 (12-20) BUN 19 H (9-16) mg/dL Creatinine 0.86 (0.5-1.4) mg/dL Estim Creat Clear Calc 132.8 Estimated GFR > 60 Random Glucose 108 (60-115) mg/dL Calcium 10.2 D (8.4-10.2) mg/dL Magnesium 2.1 (1.6-2.6) mg/dL Total Bilirubin 0.9 (0.0-1.0) mg/dL AST 34 (5-37) U/L ALT 35 (0-40) U/L Alkaline Phosphatase 121 H (39-117) U/L Total Protein 6.8 (6.5-8.0) g/dL Albumin 4.0 (3.5-5.0) g/dL Vitamin B12 (200-900) pg/mL Folate (> or = 4.0) ng/mL Ethyl Alcohol < 10 mg/dL 09/24/22 Range/Units 08:34 WBC (4.8-10.8) X10*3/uL RBC (4.60-5.80) X10*6/uL Hgb (14.0-18.0) g/dl Hct (42.0-52.0) % MCV (80.0-98.0) fL MCH (27.0-33.0) pg MCHC (31.0-36.0) g/dl RDW (11.0-16.0) % Plt Count (160-400) X10*3/uL MPV (9.4-12.4) fL Immature Gran % (Auto) (0.0-0.4) % Neut % (Auto) (45-73) % Lymph % (Auto) (20-40) % [place] % (Auto) (2-11) % Eos % (Auto) (0-4) % Baso % (Auto) (0-2) % Lymph # (Auto) (1.2-4.9) X10*3/uL [place] # (Auto) (0.1-1.2) X10*3/uL Eos # (Auto) (0.0-0.4) X10*3/uL Baso # (Auto) (0.0-0.2) X10*3/uL Abs Immat Gran (auto) (0.00-0.03) X10*3/uL Absolute Neuts (auto) (2.0-8.3) x10*3/uL Absolute Nucleated RBC (0.0-0.012) X10*3/uL Nucleated RBC % (auto) (0.0-0.2) /100WBC Sodium (135-145) mmol/L Potassium (3.3-5.1) mmol/L Chloride (96-108) mmol/L Carbon Dioxide (22-29) mmol/L Anion Gap (12-20) BUN (9-16) mg/dL Creatinine (0.5-1.4) mg/dL Estim Creat Clear Calc Estimated GFR Random Glucose (60-115) mg/dL Calcium (8.4-10.2) mg/dL Magnesium (1.6-2.6) mg/dL Total Bilirubin (0.0-1.0) mg/dL AST (5-37) U/L ALT (0-40) U/L Alkaline Phosphatase (39-117) U/L Total Protein (6.5-8.0) g/dL Albumin (3.5-5.0) g/dL Vitamin B12 243 (200-900) pg/mL Folate 11.4 (> or = 4.0) ng/mL Ethyl Alcohol mg/dL Independent Interpretation I performed an independent interpretation of an: EKG Interpretation: Rate: 77 Rhythm: NSR Garrett: normal LVH Normal P waves. Normal LUIS. Normal QRS complex. ST T wave : inverted t wave V1, no DILLON, no ST depression qTC: normal prior studies: no acute ischemia The study has been interpreted contemporaneously by me. Prescription Management I considered prescription management with: Other (naltrexone and thiamine) Social Determinants Patient?s care significantly limited by Social Determinants of Health including: Other Social Determinant of Health Discharge Plan Discharge Clinical Impression: Alcohol abuse, Neuropathy Patient Disposition: Home, Self-Care Instructions: Abuse of Alcohol (ED), Peripheral Neuropathy (ED) Additional Instructions: return for vomiting, confusion, abdominal pain, weakness, loss of control of bowel or bladder. follow up with providers for naltrexone. do not drink alcohol. return for seizures. Prescriptions: New thiamine HCl (vitamin B1) 100 mg tablet 100 mg PO DAILY Qty: 30 1RF naltrexone 50 mg tablet 50 mg PO DAILY Qty: 32 1RF Rx Instructions: 1/2 tabs for 2 days then 1 tab daily
[2022-09-24] MEDS: 0.9 % Sodium Chloride 1,000 ML 999 ML IV (08:45)
[2022-09-24] MEDS: Thiamine HCL 100 MG in 0.9 % Sodium Chloride 100 ML 202 MG IV (08:45)
[2022-09-24] MEDS: LORazepam 2 MG/ML VIAL 1 MG IVPUSH (08:49)
[2022-09-24] MEDS: chlordiazePOXIDE HCl 25 MG CAPSULE 50 MG PO (08:49)
[2022-09-24 09:05] LABS: Ethanol < 10 mg/dL; Magnesium 2.1 mg/dL (1.6-2.6)
[2022-09-24 09:28] LABS: Folate 11.4 ng/mL (> or = 4.0); Vitamin B12 243 pg/mL (200-900)
--- NOTE | 2022-09-24 10:00 | PC.NURSE ---
Patient resting on stretcher with eyes closed, patient breathing evenly. no s/s of distress noted at this time.
--- NOTE | 2022-09-24 11:04 | MHC.RECOVRN ---
Met with pt in ED19 to discuss alcohol use and desire for treatment. Pt sitting in bed, eyes closed, wakes to voice. Reports medications administered have made pt drowsy. Pt reports alcohol use 5 days per week x years. Pt reports 4 months ago having an epiphany and desire and need to reduce alcohol use. Pt has reduced use to 3-4 shots once per week, last use 09/18. Pt is attending AA on Wednesdays and finds this very helpful. 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 Pt reports having done research on medications for alcohol use disorder and is interested in naltrexone. Discussed medication, answered pts questions. Pt interested in initiating care at the [facility]. Discussed with ED provider. Plan to send naltrexone rx. Pt has [facility] appt on 09/26 at 11AM.
[2022-09-24 11:10] VITALS: BP 135/96; PULSE 81; RESP 17; O2SAT 100
== END 2022-09-24 11:16 | disposition home or self-care (01) ==
PROVIDERS: Emergency Provider Emergency Medicine
DX: F10.10 Alcohol abuse, uncomplicated (principal); Y90.0 Blood alcohol level of less than 20 mg/100 ml; G62.9 Polyneuropathy, unspecified; R42 Dizziness and giddiness; Z79.899 Other long term (current) drug therapy
CPT/HCPCS: 36415; 80053; 80307; 82607; 82746; 83735; 85025; 93005; 96361; 96365; 96375; 99284; 99285; J2060; J3411

== ENCOUNTER → 2022-09-24 08:13 | Outpatient (BNV) | payer OTHER, SELFPAY | PROVIDERS: Emergency Provider Emergency Medicine; Visit Provider Internal Medicine Cardiovascular Disease | DX: I49.9 Cardiac arrhythmia, unspecified (principal) | CPT/HCPCS: 93010 ==

== ENCOUNTER 2022-09-26 13:57 | Outpatient (AMB) | payer OTHER, SELFPAY ==
--- NOTE | 2022-09-26 14:01 | A.OFFVIS_ITS ---
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: No Allergies No Known Allergies [No Known Allergies*] Allergy (Verified 09/26/22 14:03) Do you need a note to return to daycare/school/sports/work: No HPI MAT Intake HPI Details Patient presents for intake and evaluation for alcohol use Seen in the ED on September 24 and started on Naltrexone Drinking socially started to increase once in the [email or web address] Stationed in [facility]--many traumatic events during 2 years there--whiskey or vodka 750ml daily Changed from [employer] to [employer] 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 [employer] Medical History Acute appendicitis Surgical History History of incision and drainage (~05/29/22) History of laparoscopic appendectomy (07/27/21) Social History Household Members: Children Housing: Apartment Alcohol intake: current Patient Tobacco Use Status: Never used Tobacco e-Cigarette/Vaping Use: Never Used Second Hand Smoke Exposure: No Review of Systems Const Reports as per HPI Physical Exam Vital Signs: Last Vital Signs Pulse 86 09/26/22 14:02 BP 132/84 09/26/22 14:02 Pulse Ox 98 09/26/22 14:02 Oxygen Delivery Method Room Air 09/26/22 14:02 Const General: cooperative, healthy appearing and anxious Assessment & Plan Assessment & Plan (1) Alcohol use disorder, moderate, dependence: Code(s): F10.20 - Alcohol dependence, uncomplicated Plan: * continue naltrexone * follow up 3 weeks * will reassess recovery supports at next visit. Medications: New folic acid 1 mg PO DAILY 30 tabs 0RF Coding Level of Care Code New Pt Level 4 (98936) Diagnoses Alcohol use disorder, moderate, dependence F10.20
[2022-09-26 14:02] VITALS: BP 132/84; PULSE 86; O2SAT 98
== END 2022-09-26 16:03 | disposition home or self-care (01) ==
LOC: HO.HCC 13:57
PROVIDERS: PCP Internal Medicine; Visit Provider Nurse Practitioner Psychiatric/Mental Health
DX: F10.20 Alcohol dependence, uncomplicated (principal)
CPT/HCPCS: 99204

== ENCOUNTER → 2022-09-26 13:57 | Outpatient (BNVA) | payer OTHER, SELFPAY | PROVIDERS: PCP Internal Medicine; Visit Provider Nurse Practitioner Psychiatric/Mental Health ==

== ENCOUNTER 2022-10-20 16:20 | Outpatient (AMB) | payer OTHER, SELFPAY ==
--- NOTE | 2022-10-20 16:21 | A.OFFVIS_ITS ---
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 Allergies No Known Allergies [No Known Allergies*] Allergy (Verified 10/20/22 16:26) Do you need a note to return to daycare/school/sports/work: No HPI mat visit HPI Details Patient presents for AUD treatment follow up Still tolerating medication--continues to abstain from alcohol Has been seeing [facility] provider at [facility] --reports he was told to inquire about ADHD medication Still attending AA meetings every and throughout the week [facility] Medical History Acute appendicitis Surgical History History of incision and drainage (~05/29/22) History of laparoscopic appendectomy (07/27/21) Social History Household Members: Children Housing: Apartment Alcohol intake: current Patient Tobacco Use Status: Never used Tobacco e-Cigarette/Vaping Use: Never Used Second Hand Smoke Exposure: No Review of Systems Const Reports as per HPI Physical Exam Vital Signs: Last Vital Signs Pulse 92 10/20/22 16:25 BP 132/86 10/20/22 16:25 Pulse Ox 98 10/20/22 16:25 Oxygen Delivery Method Room Air 10/20/22 16:25 Const General: cooperative, healthy appearing and anxious Assessment & Plan Assessment & Plan (1) Alcohol use disorder, moderate, dependence: Code(s): F10.20 - Alcohol dependence, uncomplicated Plan: * continue naltrexone at current dose * advised that ADHD evaluation not indicated at this time--focus of treatment AUD * follow up 2 weeks * patient will look into therapist Medications: New nicotine (polacrilex) (Nicorette) 4 mg buccal Q2H PRN 110 ea 0RF nicotine cravings Coding Level of Care Code Est Pt Level 3 (31243) Diagnoses Alcohol use disorder, moderate, dependence F10.20
[2022-10-20 16:25] VITALS: BP 132/86; PULSE 92; O2SAT 98
== END 2022-10-20 16:51 | disposition home or self-care (01) ==
LOC: HO.HCC 16:20
PROVIDERS: PCP Internal Medicine; Visit Provider Nurse Practitioner Psychiatric/Mental Health
DX: F10.20 Alcohol dependence, uncomplicated (principal)
CPT/HCPCS: 99213

== ENCOUNTER → 2022-10-20 16:20 | Outpatient (BNVA) | payer OTHER, SELFPAY | PROVIDERS: PCP Internal Medicine; Visit Provider Nurse Practitioner Psychiatric/Mental Health ==

== ENCOUNTER → 2022-12-03 10:19 | Outpatient (BNVA) | payer OTHER, SELFPAY | PROVIDERS: PCP Internal Medicine; Visit Provider Physician Assistant Medical | DX: S29.012A Strain of muscle and tendon of back wall of thorax, initial encounter (principal); S39.012A Strain of muscle, fascia and tendon of lower back, initial encounter; X50.3XXA Overexertion from repetitive movements, initial encounter | CPT/HCPCS: 99204 ==

== ENCOUNTER → 2022-12-08 13:45 | Outpatient (BNVA) | payer OTHER, SELFPAY | PROVIDERS: PCP Internal Medicine; Visit Provider Physician Assistant | DX: S29.012A Strain of muscle and tendon of back wall of thorax, initial encounter (principal); S39.012A Strain of muscle, fascia and tendon of lower back, initial encounter; X50.3XXA Overexertion from repetitive movements, initial encounter | CPT/HCPCS: 99213 ==

== ENCOUNTER → 2022-12-17 13:20 | Outpatient (BNVA) | payer OTHER, SELFPAY | PROVIDERS: PCP Internal Medicine; Visit Provider Physician Assistant | DX: S29.012D Strain of muscle and tendon of back wall of thorax, subsequent encounter (principal); S39.012D Strain of muscle, fascia and tendon of lower back, subsequent encounter; X50.3XXD Overexertion from repetitive movements, subsequent encounter | CPT/HCPCS: 99213 ==

== ENCOUNTER → 2022-12-26 10:37 | Outpatient (BNVA) | payer OTHER, SELFPAY | PROVIDERS: PCP Internal Medicine; Visit Provider Physician Assistant | DX: M48.04 Spinal stenosis, thoracic region (principal); M48.061 Spinal stenosis, lumbar region without neurogenic claudication | CPT/HCPCS: 99213 ==

== ENCOUNTER 2023-01-05 09:00 | Outpatient (RCR) | payer OTHER, SELFPAY ==
--- NOTE | 2022-12-17 15:33 | MHC.PT.EP ---
[facility] [place] Office [place] Office [place] Office [address] Kev Whitfield [address] [phone] F: [phone] F: [phone] F: [phone] F: [phone] Physical Therapy Plan of Care Date of Evaluation: 12/17/22 Date of Surgery: Diagnosis: back muscle strain Assessment: Patient is a 32 y.o. male who is referred to PT by Dr. Terry Hawthorne MD with Dx of back muscle strain. Patient impairments include poor posture, pain, limited ROM, weakness, R shoulder impingement. Patient current functional limitations are bending, prolonged walking, sitting, reach overhead on R painful, stairs, putting on undershirt, unable to lie supine, unable to work. Patient will benefit from skilled PT to address aforementioned impairments and functional limitations to meet established goals. Frequency and Duration: The patient will be seen 2-3x/week for 4 weeks Short Term Goals: 2 weeks Patient demonstrates consistency and independence with HEP to self manage symptoms. Patient is able to lie supine and roll to s/l to restore bed mobility. Alf Goals: 4 weeks 4 weeks Patient presents with increased lumbar spine flexion 80 degrees to be able to RTW to perform bending tasks. Patient presents with increased R hip flexion strength 5/5 to be able to ascend/descend 3 flights reciprocally. [ End ] Treatment Plan: Modalities to reduce pain, spasms and effusion. Manual therapy to restore motion and function. Therapeutic exercise to improve strength and flexibility. Neuromuscular re-education for posture and balance. Therapeutic activities to return to functional activities of daily living. Electronically signed by: Liz Good, PT, DPT Please sign and return to therapist. Thank you for your referral.
--- NOTE | 2023-02-12 10:52 | MHC.PT.DC ---
[facility] [place] Office [place] Office [place] Office [address] Kev Whitfield [address] [facility] [phone] F: [phone] F: [phone] F: [phone] F: [phone] Physical Therapy Discharge Report Diagnosis: back muscle strain Date of Surgery: Date of Evaluation: 12/17/22 Date of Discharge: 02/12/23 Treatments to Date: 4 Cancellations to Date: No Shows to Date: 3 Discharge Status: Visit Non-compliance Discharge Summary: Damien was treated in PT for 4 sessions and then did not show for his last 3 scheduled visits. Therefore he is discharged from PT at this time. Electronically signed by: Liz Good, PT, DPT Please sign and return to therapist. Thank you for your referral.
== END 2023-02-12 10:53 | disposition home or self-care (01) ==
LOC: HO.PT 09:00
PROVIDERS: PCP Internal Medicine; Visit Provider Internal Medicine
DX: S39.012D Strain of muscle, fascia and tendon of lower back, subsequent encounter (principal)
CPT/HCPCS: 97014; 97110; 97140; 97161; 97530

== ENCOUNTER → 2023-01-09 10:39 | Outpatient (BNVA) | payer OTHER, SELFPAY | PROVIDERS: PCP Internal Medicine; Visit Provider Physician Assistant Medical | DX: S29.012D Strain of muscle and tendon of back wall of thorax, subsequent encounter (principal); S39.012D Strain of muscle, fascia and tendon of lower back, subsequent encounter; X50.3XXD Overexertion from repetitive movements, subsequent encounter; M54.16 Radiculopathy, lumbar region | CPT/HCPCS: 99214 ==

== ENCOUNTER 2023-01-15 14:40 | Outpatient (AMB) | payer OTHER, SELFPAY ==
--- NOTE | 2023-01-15 14:55 | MHC.AM.SUB ---
Intake Vital Signs 01/15/23 14:56 BP 128/88 Blood Pressure Location Lt brachial Position Sitting Pulse 115 H Pulse Source Pulse Oximeter Pulse Oximetry (%) 98 Oxygen Delivery Method Room Air Intake Visit Reasons: MAT Visit Allergies No Known Allergies [No Known Allergies*] Allergy (Verified 10/20/22 16:26) HPI MAT Visit HPI Details Pt presents to re-establish care, has not been seen in 3 months. Reports he has been doing well with recovery- had one day when he drank alcohol, had: one shot and a glass of wine. Says he did not feel like binge drinking the next day as he previously would have. Reports the naltrexone was working for him, denies side effects related to med. Says he inquired with EAP about ADHD medication and they told him they were unable to prescribe to him. Has been going to once weekly, and has an unofficial sponsor . States he asked this person to be his sponsor and they never gave him a definitive answer- but are available to him any time he has needed to call them. Would like a referral to [facility] Medical History Acute appendicitis Surgical History History of incision and drainage (~05/29/22) History of laparoscopic appendectomy (07/27/21) Social History Household Members: Children Housing: Apartment Alcohol intake: current Patient Tobacco Use Status: Never used Tobacco e-Cigarette/Vaping Use: Never Used Second Hand Smoke Exposure: No Review of Systems Const Reports as per HPI and Reports no additional complaints Physical Exam Vital Signs: Last Vital Signs Pulse 115 H 01/15/23 14:56 BP 128/88 01/15/23 14:56 Pulse Ox 98 01/15/23 14:56 Oxygen Delivery Method Room Air 01/15/23 14:56 Const General: cooperative, healthy appearing and no acute distress Nutritional Appearance: average body habitus Orientation/consciousness: patient oriented x3 Resp Effort & Inspection: normal respiratory effort Skin General skin exam: no rashes or lesions noted Neuro General: patient oriented x3 Psych Appearance: grossly normal Mental Status: mental status grossly normal Speech and movement: Pressured speech present Affect: Labile affect present Attitude: cooperative Assessment & Plan Assessment & Plan (1) Alcohol use disorder, moderate, dependence: Code(s): F10.20 - Alcohol dependence, uncomplicated Plan: Restarted naltrexone- to be continued at prior dose, folic acid and thiamine. Discussed recovery supports, provided with information about community living coach, pt to consider it Referral placed to [facility]. Follow up 2 weeks Plan reviewed with ALEXUS Ellison Orders: Referrals Counseling Referral F10.20 - Alcohol dependence, uncomplicated Medications: Changed From naltrexone 1/2 tabs for 2 days then 1 tab daily 50 mg PO DAILY 32 tabs 1RF To naltrexone 50 mg PO DAILY 30 tabs 1RF Refilled thiamine HCl (vitamin B1) 100 mg PO DAILY 30 tabs 1RF folic acid 1 mg PO DAILY 30 tabs 1RF Coding Level of Care Code Est Pt Level 4 (85739) Diagnoses Alcohol use disorder, moderate, dependence F10.20
[2023-01-15 14:56] VITALS: BP 128/88; PULSE 115; O2SAT 98
== END 2023-01-15 15:24 | disposition home or self-care (01) ==
PROVIDERS: PCP Internal Medicine; Visit Provider Nurse Practitioner Psychiatric/Mental Health
DX: F10.20 Alcohol dependence, uncomplicated (principal)
CPT/HCPCS: 99214

== ENCOUNTER → 2023-01-15 14:40 | Outpatient (BNVA) | payer OTHER, SELFPAY | PROVIDERS: PCP Internal Medicine; Visit Provider Nurse Practitioner Psychiatric/Mental Health | DX: F10.20 Alcohol dependence, uncomplicated (principal); Z51.81 Encounter for therapeutic drug level monitoring; Z79.899 Other long term (current) drug therapy | CPT/HCPCS: 99212 ==

== ENCOUNTER → 2023-01-16 10:16 | Outpatient (BNVA) | payer OTHER, SELFPAY | PROVIDERS: PCP Internal Medicine; Visit Provider Physician Assistant | DX: S39.012D Strain of muscle, fascia and tendon of lower back, subsequent encounter (principal); X50.3XXD Overexertion from repetitive movements, subsequent encounter | CPT/HCPCS: 99213 ==

== ENCOUNTER → 2023-01-27 10:09 | Outpatient (BNVA) | payer OTHER, SELFPAY | PROVIDERS: PCP Internal Medicine; Visit Provider Physician Assistant Medical | DX: S29.012D Strain of muscle and tendon of back wall of thorax, subsequent encounter (principal); S39.012D Strain of muscle, fascia and tendon of lower back, subsequent encounter; X50.3XXD Overexertion from repetitive movements, subsequent encounter | CPT/HCPCS: 99213 ==

== ENCOUNTER → 2023-02-13 10:17 | Outpatient (BNVA) | payer OTHER, SELFPAY | PROVIDERS: PCP Internal Medicine; Visit Provider Physician Assistant | DX: S39.012D Strain of muscle, fascia and tendon of lower back, subsequent encounter (principal); X50.3XXD Overexertion from repetitive movements, subsequent encounter | CPT/HCPCS: 99213 ==

== ENCOUNTER 2023-02-20 10:48 | Outpatient (REF) | payer OTHER, SELFPAY ==
--- NOTE | ~2023-02-20 | MR_ITS ---
EXAMINATION: MR LUMBAR SPINE WITHOUT CONTRAST CLINICAL INFORMATION: Low back pain. Bilateral leg pain. COMPARISON: X-ray of the lumbar spine dated 01/09/2023. TECHNIQUE: Multiplanar, multisequence imaging was obtained. FINDINGS: VERTEBRAL BODIES AND PARASPINAL STRUCTURES: The marrow signal is within normal limits. Endplate Schmorl's nodes are present at multiple levels. Disc heights are preserved with normal intradiscal signal. There is mild congenital narrowing of the spinal canal with foreshortening of the pedicles. No marrow or soft tissue edema is seen. No abnormal curvature of the lumbar spine is evident. There are no compression fractures. The paraspinal soft tissues are normal. The imaged bony pelvis is unremarkable. CONUS MEDULLARIS AND CAUDA EQUINE: The distal cord, conus tip, and cauda equina nerve roots are normal. SPINAL LEVELS: L1-L2: No significant disc pathology, central canal stenosis, or foraminal narrowing. L2-L3: Minimal annular bulge. No central canal stenosis or foraminal narrowing. L3-L4: Very mild disc bulge without central canal stenosis. Bulging disc mildly encroaches upon the neural foramina, more so on the right side. L4-L5: Small posterior annular fissure in the midline and mild disc bulge. No central canal stenosis. [id number] foraminal narrowing due to encroachment from bulging disc. L5-S1: Minimal annular bulge. No central canal stenosis. Mild right and sunl-fl-llfibxli left foraminal narrowing. 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 Mild spondylitic changes. No focal disc protrusion or significant central canal stenosis. [id number] foraminal narrowing at the L4-L5 and L5-S1 levels.
== END 2023-02-20 10:49 | disposition home or self-care (01) ==
LOC: HO.MRI 10:48
PROVIDERS: PCP Internal Medicine; Visit Provider Physician Assistant
DX: S39.92XD Unspecified injury of lower back, subsequent encounter (principal)
CPT/HCPCS: 72148

== ENCOUNTER → 2023-02-27 09:45 | Outpatient (BNVA) | payer OTHER, SELFPAY | PROVIDERS: PCP Internal Medicine; Visit Provider Physician Assistant | DX: M51.36 Other intervertebral disc degeneration, lumbar region (principal); R20.0 Anesthesia of skin | CPT/HCPCS: 99213 ==

== ENCOUNTER → 2023-03-18 10:04 | Outpatient (BNVA) | payer OTHER, SELFPAY | PROVIDERS: PCP Internal Medicine; Visit Provider Physician Assistant | DX: M54.9 Dorsalgia, unspecified (principal) | CPT/HCPCS: 99213 ==

== ENCOUNTER 2023-04-02 14:38 | Outpatient (REF) | payer OTHER, SELFPAY | END 2023-04-02 14:39 | disposition home or self-care (01) | LOC: HO.SH 14:38 | PROVIDERS: Visit Provider Internal Medicine | DX: Z01.118 Encounter for examination of ears and hearing with other abnormal findings (principal); H93.293 Other abnormal auditory perceptions, bilateral | CPT/HCPCS: 92557; 92567; 92588 ==

== ENCOUNTER 2023-04-08 15:32 | Outpatient (REF) | payer OTHER, SELFPAY ==
--- NOTE | 2023-04-08 15:40 | EMG_ITS ---
Chief complaint: Back pain, leg numbness Reason for referral: Evaluate for neuropathy versus radiculopathy Referred by: Work Connection Procedure done: Bilateral lower extremity NCS/EMG Precautions and/or limitations: None The limb temperature was monitored continuously and remained between 32-36 degrees C during the performance of the NCS. Nerve Conduction Studies Anti Sensory Summary Table ?Stim Site NR Onset (ms) Norm Onset (ms) Peak (ms) Norm Peak (ms) O-P Amp (?V) Norm O-P Amp Site1 Site2 Delta-0 (ms) Dist (cm) Jose (m/s) Norm Jose (m/s) Left Sural Anti Sensory (Lat Mall) Calf ? 2.2 3.3 <4.0 9.6 >5.0 Calf Lat Mall 2.2 14.0 64 Right Sural Anti Sensory (Lat Mall) Calf ? 2.8 3.7 <4.0 15.2 >5.0 Calf Lat Mall 2.8 14.0 50 Motor Summary Table ?Stim Site NR Onset (ms) Norm Onset (ms) O-P Amp (mV) Norm O-P Amp iAmp (mV) Amp (1st) (%) Site1 Site2 Delta-0 (ms) Dist (cm) Jose (m/s) Norm Jose (m/s) Right Peroneal Motor (Ext Dig Brev) Ankle ? 3.7 <4.0 5.5 >2.5 6.9 100.0 Ankle Ext Dig Brev 3.7 0.0 B Fib ? 11.5 5.3 6.5 96.4 B Fib Ankle 7.8 37.0 47 >40 Poplt ? 12.0 5.1 6.2 92.7 Poplt B Fib 0.5 4.0 80 >40 Left Tibial Motor (Abd Jones Brev) Ankle ? 3.1 <5 20.4 >2.5 26.1 100.0 Ankle Abd Jones Brev 3.1 0.0 Knee ? 12.6 14.2 17.6 69.6 Knee Ankle 9.5 42.0 44 >40 Right Tibial Motor (Abd Jones Brev) Ankle ? 3.4 <5 14.4 >2.5 20.0 100.0 Ankle Abd Jones Brev 3.4 0.0 Knee ? 13.8 10.5 13.0 72.9 Knee Ankle 10.4 44.0 42 >40 EMG ?Side Muscle Nerve Root Ins Act Fibs Psw Amp Dur Poly Recrt Int Pat Comment Right AbdHallucis MedPlantar S1-2 Nml Nml Nml Nml Nml 0 Nml Complete Right AntTibialis Dp Br Peron L4-5 Nml Nml Nml Nml Nml 0 Nml Complete Right PostTibialis Tibial L5, S1 Nml Nml Nml Nml Nml 0 Nml Complete Right MedGastroc Tibial S1-2 Nml Nml Nml Nml Nml 0 Nml Complete Right VastusMed Femoral L2-4 Nml Nml Nml Nml Nml 0 Nml Complete Left AbdHallucis MedPlantar S1-2 Nml Nml Nml Nml Nml 0 Nml Complete Left AntTibialis Dp Br Peron L4-5 Nml Nml Nml Nml Nml 0 Nml Complete Left PostTibialis Tibial L5, S1 Nml Nml Nml Nml Nml 0 Nml Complete Left MedGastroc Tibial S1-2 Nml Nml Nml Nml Nml 0 Nml Complete Left VastusMed Femoral L2-4 Nml Nml Nml Nml Nml 0 Nml Complete FINDINGS: All motor and sensory nerves tested showed normal latencies, amplitudes and conduction velocities. Concentric needle EMG was performed in selected muscles of the bilateral lower extremity. Study did not reveal signs of electric abnormalities as shown in the table below. IMPRESSION: 1. This is a normal study. 2. There is no electrodiagnostic evidence for peroneal neuropathy, tibial neuropathy, lumbosacral plexopathy, lumbar radiculopathy, or peripheral neuropathy. Thank you for your kind referral. Maia Smith MD, DEE Board Certified, [place] [employer] and [employer] (ABPMR) Board Certified, [place] [employer] Electrodiagn[employer] (ABEM) CODIN 10348 x 2 MTDD
== END 2023-04-08 15:33 | disposition home or self-care (01) ==
LOC: HO.NEURO 15:32
PROVIDERS: PCP Internal Medicine; Visit Provider Physician Assistant
DX: R20.2 Paresthesia of skin (principal)
CPT/HCPCS: 95886; 95909

== ENCOUNTER → 2023-04-08 15:40 | Outpatient (BNV) | payer OTHER, SELFPAY | PROVIDERS: PCP Internal Medicine; Visit Provider Physical Medicine & Rehabilitation | DX: R20.2 Paresthesia of skin (principal); M54.50 Low back pain, unspecified | CPT/HCPCS: 95886; 95909 ==

== ENCOUNTER 2023-04-20 14:08 | Outpatient (AMB) | payer OTHER, SELFPAY ==
--- NOTE | 2023-04-20 14:09 | MHC.OFFVIS ---
Intake Vital Signs 04/20/23 14:16 Height 6 ft Weight 202 lb 8 oz BMI 27.5 BP 148/80 H Blood Pressure Location Lt brachial Position Sitting Respiration 18 Pulse 91 Pulse Source Pulse Oximeter Pulse Oximetry (%) 96 Oxygen Delivery Method Room Air Intake Visit Reasons: Bilateral leg neuropathy Intake Note: Patient comes in for initial visit was referred by [facility] work connection. Reports pain 8/10. Allergies No Known Allergies [No Known Allergies*] Allergy (Verified 10/20/22 16:26) HPI HPI Comments History of Present Illness Details Damien is very pleasant 32 years old gentleman who presents in my office with complains on pain in lower back with radiation into bilateral lower extremities. He reports the pain started in November of 2022 he relates his pain to a work accident. He was throwing heavy bags and after that he started to feel pain in his back. He reports his pain level 7 to 8/10 today. He denies that he can not sleep normally because of his pain but he can not do activities of daily living can not take care of himself and he can not function normally. He is currently unemployed and not looking for a job because of his pain. Weather changes in movements aggravate his pain. Flexing forward aggravates his pain. Flexing backwards does not affect his pain. The most severe pain he feels in morning and at night. The severe pain is in the middle of the day. His pain in terms of tissue damage is described as pulsing, throbbing, pounding, tingling, stinging, spreading, piercing sensation. He went for physical therapy and reports some improvement after physical therapy he had an MRI lumbar spine results of which dictated as below. He denies any past medical history, past surgical history significant for appendectomy, social history he smokes cigarettes 1 pack every 2-3 days drinks alcohol consumes caffeinated beverages in form of soda and denies recreational drugs. [facility] Medical History Acute appendicitis Surgical History History of incision and drainage (~05/29/22) History of laparoscopic appendectomy (07/27/21) Social History Household Members: Children Housing: Apartment Alcohol intake: current Patient Tobacco Use Status: Never used Tobacco e-Cigarette/Vaping Use: Never Used Second Hand Smoke Exposure: No Review of Systems Const All systems reviewed & are unremarkable except as noted in HPI and below ENT Reports Normal hearing present Neuro Reports Normal hearing present, Denies Abnormal speech present and Denies Sensory deficit (Neuro) Physical Exam Vital Signs: Last Vital Signs Pulse 91 04/20/23 14:16 Resp 18 04/20/23 14:16 BP 148/80 H 04/20/23 14:16 Pulse Ox 96 04/20/23 14:16 Oxygen Delivery Method Room Air 04/20/23 14:16 BMI result Body Mass Index 27.5 Const General: no acute distress, well developed, alert, awake and Physically active Orientation/consciousness: patient oriented x3 Eyes General: appearance normal, both eyes and all related structures Pupils: Equal, round and reactive pupils present EOM: EOMs intact bilaterally Neck Neck: Yes full ROM Chest Chest palpation & inspection: normal inspection of the chest Resp Effort & Inspection: normal respiratory effort, able to speak in complete sentences, normal respiratory pattern, no audible wheezes and no cough Cardio Jugular venous distension: no JVD GI Inspection: Yes normal to inspection Back/Spine/Pelvis Other: Able to walk on bilateral tiptoes in bilateral heels without difficulty. Flexing forward aggravates his pain. Flexing backwards aggravates his pain only minimally. Tenderness on palpation on paraspinal spinal region of the lower lumbar spine. Loading test is positive bilaterally. SLR is negative bilaterally. Lassegue test is negative bilaterally. Aron test is negative bilaterally. Neuro General: patient oriented x3 and gait normal Cranial nerves: Yes CN's II-XII intact bilaterally, Yes Equal, round and reactive pupils present, Yes Normal hearing present and Yes Ability to bilaterally elevate shoulders present Speech: No Abnormal speech present Gait exam (Neuro): Normal gait present Motor exam (neuro): 5/5 motor strength present throughout Sensory Exam: No Sensory deficit (Neuro) Extrem General: No pedal edema Psych Speech and movement: Normal speech and movement present Affect: normal affect Attitude: cooperative Thought process: Normal thought process present Thought content: Normal thought content present Insight: Good insight present (Psych) Judgement: Good judgement present (Psych) Results Reviewed Results Reviewed: MR LUMBAR SPINE WITHOUT CONTRAST CLINICAL INFORMATION: Low back pain. Bilateral leg pain. COMPARISON: X-ray of the lumbar spine dated 01/09/2023. TECHNIQUE: Multiplanar, multisequence imaging was obtained. FINDINGS: VERTEBRAL BODIES AND PARASPINAL STRUCTURES: The marrow signal is within normal limits. Endplate Schmorl's nodes are present at multiple levels. Disc heights are preserved with normal intradiscal signal. There is mild congenital narrowing of the spinal canal with foreshortening of the pedicles. No marrow or soft tissue edema is seen. No Modic type changes significant enough to justify any interventions Is observed by me with images evaluation. (Y.K.) No abnormal curvature of the lumbar spine is evident. There are no compression fractures. The paraspinal soft tissues are normal. The imaged bony pelvis is unremarkable. CONUS MEDULLARIS AND CAUDA EQUINE: The distal cord, conus tip, and cauda equina nerve roots are normal. SPINAL LEVELS: L1-L2: No significant disc pathology, central canal stenosis, or foraminal narrowing. L2-L3: Minimal annular bulge. No central canal stenosis or foraminal narrowing. L3-L4: Very mild disc bulge without central canal stenosis. Bulging disc mildly encroaches upon the neural foramina, more so on the right side. L4-L5: Small posterior annular fissure in the midline and mild disc bulge. No central canal stenosis. Gjrn-oz-tkdwxxnh foraminal narrowing due to encroachment from bulging disc. L5-S1: Minimal annular bulge. No central canal stenosis. Mild right and blon-qp-dpmcpoov left foraminal narrowing. 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 Mild spondylitic changes. No focal disc protrusion or significant central canal stenosis. Pzjb-nh-hueirdbg foraminal narrowing at the L4-L5 and L5-S1 levels. Assessment & Plan Assessment & Plan (1) Spondylosis of lumbar region without myelopathy or radiculopathy: Code(s): M47.816 - Spondylosis without myelopathy or radiculopathy, lumbar region Plan: 1 (2) Chronic pain syndrome: Code(s): G89.4 - Chronic pain syndrome Plan: I will schedule this patient for diagnostic medial branch block L3-L4 does ramus L5. I will see him after the procedure. History of prolong sitting pain and flexing forward pain affecting him more than flexing backwards made me think about vertebra genic pain however there is no Modic type changes on the MRI. With loading test positive I think we might find proper pain generators with diagnostic medial branch block. Coding Level of Care Code New Pt Level 3 (06697) Diagnoses Spondylosis of lumbar region without myelopathy or radiculopathy M47.816 Chronic pain syndrome G89.4
[2023-04-20 14:16] VITALS: BP 148/80; PULSE 91; RESP 18; O2SAT 96; BMI 27.5
== END 2023-04-20 14:38 | disposition home or self-care (01) ==
PROVIDERS: PCP Internal Medicine; Visit Provider Anesthesiology
DX: M47.816 Spondylosis without myelopathy or radiculopathy, lumbar region (principal); G89.4 Chronic pain syndrome
CPT/HCPCS: 99203

== ENCOUNTER → 2023-04-20 14:08 | Outpatient (BNVA) | payer OTHER, SELFPAY | PROVIDERS: PCP Internal Medicine; Visit Provider Anesthesiology | DX: G89.4 Chronic pain syndrome (principal); M47.816 Spondylosis without myelopathy or radiculopathy, lumbar region | CPT/HCPCS: 99202 ==

== ENCOUNTER 2023-11-27 16:43 | Emergency (ER) | payer OTHER, SELFPAY ==
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
[2023-11-27 17:14] VITALS: BP 131/87; PULSE 92; RESP 20; TEMP 35.9; O2SAT 96; BMI 25.8
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
[2023-11-27 19:29] VITALS: BP 118/68; PULSE 82; RESP 16; TEMP 36.3; O2SAT 99
[2023-11-27] MEDS: Lidocaine 4 % Patch ADH..PATCH 1 PATCH TRANSDERMA (20:36)
[2023-11-27] MEDS: Ketorolac Tromethamine 30 MG/ML VIAL IM (20:40)
[2023-11-27] MEDS: Cyclobenzaprine HCl 5 MG TABLET PO (20:43)
[2023-11-27 20:46] VITALS: BP 118/68; PULSE 82; RESP 16; TEMP 36.3; O2SAT 99
== END 2023-11-27 20:47 | disposition home or self-care (01) ==
PROVIDERS: Emergency Provider Emergency Medicine Emergency Medical Services; PCP Internal Medicine
DX: S06.0X0A Concussion without loss of consciousness, initial encounter (principal); V43.52XA Car driver injured in collision with other type car in traffic accident, initial encounter; R25.2 Cramp and spasm; M54.2 Cervicalgia; Y93.89 Activity, other specified; Y92.410 Unspecified street and highway as the place of occurrence of the external cause; Y99.9 Unspecified external cause status
CPT/HCPCS: 70450; 72125; 96372; 99283; 99284; J1885

== ENCOUNTER 2023-12-04 09:41 | Emergency (ER) | payer OTHER, SELFPAY ==
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
[2023-12-04 09:54] VITALS: BP 127/87; PULSE 82; RESP 16; TEMP 37; O2SAT 100; BMI 25.5
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
--- NOTE | 2023-12-04 12:56 | PC.NURSE ---
ultrasound obtained, awaiting results. patient continues to ambulate independently, resting quietly in the room
[2023-12-04 13:13] VITALS: BP 148/89; PULSE 86; RESP 16; O2SAT 99
[2023-12-04 15:25] VITALS: BP 132/86; PULSE 68; RESP 16; O2SAT 100
[2023-12-04 16:23] VITALS: BP 132/86; PULSE 68; RESP 16; TEMP 37; O2SAT 100
== END 2023-12-04 16:23 | disposition home or self-care (01) ==
PROVIDERS: Emergency Provider Emergency Medicine; PCP Internal Medicine
DX: S42.031A Displaced fracture of lateral end of right clavicle, initial encounter for closed fracture (principal); S30.1XXA Contusion of abdominal wall, initial encounter; R10.13 Epigastric pain; R23.3 Spontaneous ecchymoses; R07.89 Other chest pain; V43.52XA Car driver injured in collision with other type car in traffic accident, initial encounter; Y93.89 Activity, other specified; Y92.488 Other paved roadways as the place of occurrence of the external cause; Y99.8 Other external cause status
CPT/HCPCS: 71046; 76705; 99283; 99284

== ENCOUNTER 2023-12-09 09:43 | Emergency (ER) | payer OTHER, SELFPAY ==
[2023-12-09 09:47] VITALS: BP 138/82; PULSE 76; RESP 18; TEMP 36.6; O2SAT 98; BMI 25.2
[2023-12-09 10:23] LABS: MANUAL DIFF FLAG NO
[2023-12-09 10:24] LABS: Basophils Absolute Auto 0.1 X10*3/uL (0.0-0.2); Basophils Percent Auto 0.9 % (0-2); Eosinophils Absolute Auto 0.1 X10*3/uL (0.0-0.4); Eosinophils Percent Auto 1.3 % (0-4); Hematocrit 49.4 % (42.0-52.0); Hemoglobin 16.8 g/dl (14.0-18.0); Imm Gran Abs Auto 0.01 X10*3/uL (0.00-0.03); Imm Gran Pct Auto 0.1 % (0.0-0.4); Lymphocytes Absolute Auto 2.2 X10*3/uL (1.2-4.9); Lymphocytes Percent Auto 28.6 % (20-40); Mean Corpuscular Hemoglobin 29.5 pg (27.0-33.0); Mean Corpuscular Volume 86.7 fL (80.0-98.0); Mean Platelet Volume 10.3 fL (9.4-12.4); Monocytes Absolute Auto 0.5 X10*3/uL (0.1-1.2); Monocytes Percent Auto 5.9 % (2-11); Neutrophils Absolute Auto 4.9 x10*3/uL (2.0-8.3); Neutrophils Percent Auto 63.2 % (45-73); Platelet Count 229 X10*3/uL (160-400); Red Cell Distribution Width 13.3 % (11.0-16.0); White Blood Count 7.7 X10*3/uL (4.8-10.8)
[2023-12-09 10:32] LABS: Prothrombin Time 11.3 SEC (10.9-12.4)
[2023-12-09 10:34] LABS: Partial Thromboplastin Time 30.2 SEC (26.0-36.8)
[2023-12-09 10:42] LABS: Alanine Aminotransferase 34 U/L (0-40); Albumin Level 4.4 g/dL (3.5-5.0); Alkaline Phosphatase 83 U/L (39-117); Anion Gap 8 (12-20); Aspartate Amino Transferase 22 U/L (5-37); Bilirubin Total 0.9 mg/dL (0.0-1.0); Blood Urea Nitrogen 19 mg/dL (9-16); Calcium 9.7 mg/dL (8.4-10.2); Carbon Dioxide 30 mmol/L (22-29); Chloride 106 mmol/L (96-108); Creatinine Clr Calc Pharmacy 117.8; Estimated Glomerular Filt Rate > 60; Glucose Random 133 mg/dL (60-115); Magnesium 2.1 mg/dL (1.6-2.6); Potassium 3.8 mmol/L (3.3-5.1); Sodium 140 mmol/L (135-145); Total Protein 7.1 g/dL (6.5-8.0)
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
[2023-12-09 16:41] VITALS: BP 130/78; PULSE 81; RESP 16; TEMP 36.8; O2SAT 100
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
[2023-12-09 17:10] LABS: Lipase 28 U/L (8-78)
[2023-12-09 18:00] VITALS: BP 128/84; PULSE 82; RESP 18; TEMP 36.7
[2023-12-09 18:18] VITALS: BP 128/84; PULSE 82; RESP 18; TEMP 36.7
== END 2023-12-09 18:18 | disposition home or self-care (01) ==
PROVIDERS: Physician Assistant Medical; Emergency Provider Emergency Medicine; PCP Internal Medicine
DX: R10.9 Unspecified abdominal pain (principal); S30.1XXD Contusion of abdominal wall, subsequent encounter; V49.9XXD Car occupant (driver) (passenger) injured in unspecified traffic accident, subsequent encounter
CPT/HCPCS: 36415; 80053; 83690; 83735; 85025; 85610; 85730; 99283; 99284

== ENCOUNTER 2023-12-22 12:50 | Outpatient (REF) | payer OTHER, SELFPAY | END 2023-12-22 12:51 | disposition home or self-care (01) | LOC: HO.HOSX 12:50 | PROVIDERS: Visit Provider Physician Assistant | DX: Z13.89 Encounter for screening for other disorder (principal) ==

== ENCOUNTER 2024-01-29 08:45 | Outpatient (AMB) | payer OTHER, SELFPAY ==
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
[2024-01-29 08:53] VITALS: BMI 25.8
== END 2024-01-29 09:16 | disposition home or self-care (01) ==
PROVIDERS: PCP Internal Medicine
DX: S42.001A Fracture of unspecified part of right clavicle, initial encounter for closed fracture (principal)
CPT/HCPCS: 99203

== ENCOUNTER 2024-01-29 13:04 | Outpatient (REF) | payer OTHER, SELFPAY | END 2024-01-29 13:05 | disposition home or self-care (01) | LOC: HO.HOSX 13:04 | DX: S42.009A Fracture of unspecified part of unspecified clavicle, initial encounter for closed fracture (principal) | CPT/HCPCS: 73000 ==

== ENCOUNTER 2024-04-23 20:49 | Emergency (ER) | payer OTHER, SELFPAY ==
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
[2024-04-23 20:57] VITALS: BP 135/78; PULSE 89; RESP 16; TEMP 36.7; O2SAT 98; BMI 32.1
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
--- OUTSIDE RECORDS SUMMARY | 2024-04-23 22:39 | XMS_ITS | Encounter Summary ---
Author Name [facility] [place] [facility] [place] Address [address] [place] [id number] Care Team Providers Care Tower Attendant Name Role Phone ARTURO COCHRAN Primary Care [...] Gunn's Name Patient's Relationship to Policy Gunn [facility] Mar 16, 2024 01 [id number] RA ROBLES ADAMSON PATIENT Selected Encounter This section includes the information on record at [place] for the Encounter. Date/Time Encounter Type Encounter Description Reason Pro vider Source Nov 18, 2023 09:30 AM Outpatient Encounter PRIMARY CARE/MEDICINE IHE Encounter Template Text not used by [place] Plan of Treatment: Future Appointments (+ 6 months) and Future Tests (+/- 45 days) The Plan of Treatment section includes future care activities for the patient from all [place] treatmentfacilities. This section includes future appointments and future orders which are active, pending or scheduled. Future Appointments This section includes appointments that were scheduled to occur 6 months from the date of the Encounter, up to a maximum of 20 appointments. The data comes from all [place] treatment facilities. Appointment Date/Time Appointment Type Appointme nt Facility Name Dec 03, 2023 07:00 PM AMBULATORY [facility] [place] [facility] Dec 04, 2023 08:45 AM [facility] Dec 04, 2023 09:15 AM [facility] Dec 22, 2023 08:00 AM [facility] [place] [facility] Dec 22, 2023 09:00 AM [facility] [place] [facility] Jan 01, 2024 02:30 PM AMBULATORY [facility] [place] [facility] Feb 01, 2024 09:30 AM AM[facility]ATORY [facility] [place] [facility] Feb 04, 2024 02:30 PM AMBULATORY - REHAB MEDICIN [facility] [place] [facility] Mar 01, 2024 11:30 AM [facility]ORY [facility] [place] [facility] Mar 03, 2024 10:00 AM AMBULATORY - PSYCHIATRY [facility] Mar 23, 2024 09:00 AM AMBULATORY - PS[facility]CHIATRY [facility] Mar 25, 2024 08:30 AM AMBULATORY - REHAB MEDICIN [facility] [place] [facility] Mar 29, 2024 09:30 AM AMBULATORY [facility] [place] [facility] Apr 01, 2024 08:00 AM AMBULATORY [facility] [place] [facility] Apr 06, 2024 09:00 AM AM[facility]ULATORY - PS[facility]CHIATRY [facility] Apr 11, 2024 02:00 PM AMBULATORY - [facility]AB MEDICIN [facility] [place] [facility] Apr 14, 2024 12:30 [facility] Apr 26, 2024 09:30 AM AM[facility] [place] [facility] Social History: Smoking Status (Most current) and Tobacco Use (All prior to encounter date) This section includes the most current, and the historical, smoking and tobacco- related health factors from the [place] facility where the Encounter took place. Current Smoking Status This section includes the most current smoking, or tobacco-related health factor, from the [place] facility where the Encounter took place. Date/Time Current Smoking Status Karan camara Jun 11, 2023 10:00 AM VA-TOBACCO USER SOME DAYS [place] Tobacco Use History This section includes a history of the smoking, or tobacco-related health factors, that were collected on or before the date of the Encounter. The data comes from the [place] facility where the Encounter took place. Date/Time Smoking Status/Tobacco Use Comment F acility Jun 11, 2023 10:00 AM VA-TOBACCO USE 1 TO < 5 YEARS [place] Jun 11, 2023 10:00 AM VA-TOBACCO USE ADVICE [place] Jun 11, 2023 10:00 AM VA-TOBACCO USE RETAIL MERCHANDISING COORDINATOR NO [place] Jun 11, 2023 10:00 AM VA-TOBACCO USE MED NO [place] Jun 11, 2023 10:00 AM VA-TOBACCO USER SOME DAYS [place] Jun 10, 2023 11:00 AM VA-TOBACCO DOESNT USE WI 30 MIN WAKEUP [place] Jun 10, 2023 11:00 AM VA-TOBACCO USE 1 TO < 5 YEARS [place] Jun 10, 2023 11:00 AM VA-TOBACCO USE ADVICE [place] Jun 10, 2023 11:00 AM VA-TOBACCO USE RETAIL MERCHANDISING COORDINATOR NO [place] Jun 10, 2023 11:00 AM VA-TOBACCO USE MED NO [place] Jun 10, 2023 11:00 AM VA-TOBACCO USER EVERY DAY [place] Jul 11, 2020 12:00 PM VA-TOBACCO NEVER USED [place] Sep 08, 2018 12:40 PM VA-TOBACCO NEVER USED [place] Encounter Notes: All associated encounter notes This section contains the clinical notes associated to the Encounter. Date/Time Encounter Note(s) Provider Source Nov 12, 2023 10:31 AM LETTERS: LOCAL TITLE: PATIENT LETTER (T) STANDARD TITLE: LETTERS DATE OF NOTE: NOV 12, 2023@10:31 ENTRY DATE: NOV 12, 2023@10:31:49 AUTHOR: DENNY BERNARDO EXP COSIGNER: URGENCY: STATUS: COMPLETED [facility]PARTMENT OF [facility] Toll Free Number Primary Care Telephone Assistance can be reached at extension [phone] [facility] scheduling can be reached at extension [phone] [facility] scheduling can be reached at ext [phone] SAMIA ADAMSON JR [address] [place] [address], [address] Date: 11/12/2023 Dear : JUAN DIEGO Thank you for choosing [facility] as your primary choice for [...] for their appointments. Please call us at [phone] to speak with a staff member who can assist you with RESCHEDULING your appointment. Thank you for your service and we look forward to hearing from you soon. Sincerely; [facility] staff Primary Care Provider : ARTURO COCHRAN M.D. [address] [place] [address] [phone] Sincerely, Your Primary Care Team [facility] [address] [facility] [address] [place] [address] [place] [address] [phone] [facility] [address] [place] [address] [place] [address] [phone] [facility] [address] [facility] [place] [address] [place] [address] [phone] DENNY BERNARDO Nov 12, 2023 10:29 AM ADMINISTRATIVE NOT E: LOCAL TITLE: ADMINISTRATIVE NOTE STANDARD TITLE: ADMINISTRATIVE NOTE DATE OF NOTE: NOV 12, 2023@10:29 ENTRY DATE: NOV 12, 2023@10:29:42 AUTHOR: DENNY BERNARDO EXP COSIGNER: URGENCY: STATUS: COMPLETED [facility] unable to reach the [place]. Left message on voicemail to contact PC to reschedule [facility] appointment that was cancelled by the clinic on 11/18/23. Letter sent to the . /tavares/ DENNY ORTEGA Signed: 11/12/2023 10:31 DENNY BERNARDO
--- OUTSIDE RECORDS SUMMARY | 2024-04-23 22:39 | XMS_ITS | Encounter Summary ---
Author Name [facility] [place] [facility] [place] Address [address] [place] [address] Care Team Providers Care Cellophane Wrapping Examiner Name Role Phone ARTURO COCHRAN Primary Care [...] Gunn's Name Patient's Relationship to Policy Gunn [facility] Mar 16, 2024 01 [id number] RA ROBLES ADAMSON PATIENT Selected Encounter This section includes the information on record at [place] for the Encounter. Date/Time Encounter Type Encounter Description Reason Pro vider Source Apr 05, 2024 11:49 AM Outpatient Encounter COMMUNITY CARE CONSULT IHE Encounter Template Text not used by [place] Plan of Treatment: Future Appointments (+ 6 months) and Future Tests (+/- 45 days) The Plan of Treatment section includes future care activities for the patient from all [place] treatmentfacilities. This section includes future appointments and future orders which are active, pending or scheduled. Future Appointments This section includes appointments that were scheduled to occur 6 months from the date of the Encounter, up to a maximum of 20 appointments. The data comes from all [place] treatment facilities. Appointment Date/Time Appointment Type Appointme nt Facility Name Apr 06, 2024 09:00 AM AMBULATORY - PSYCHIATRY [facility] Apr 11, 2024 02:00 PM AMBULATORY - REHAB MEDICIN E [facility] Apr 14, 2024 12:30 PM [facility] Apr 26, 2024 09:30 AM AMBULATORY - PSYCHIATRY [facility] Active, Pending, and Scheduled Orders This section includes a listing of several types of active, pending, and scheduled orders, including clinic medications orders, diagnostic test orders, procedure orders and consult orders; where the start date of the order is 45 days before the date of the Encounter or 45 days after the date of theEncounter. The data comes from all [place] treatment facilities. Test Date/Time Test Type Test Details Facility Name Apr 05, 2024 02:35 PM Consult Order [facility] PSYCHOTHERAPY Cons Anode Machine Operator's Choice [facility] Lab Results: +/- 30 days of the encounter This section includes the Chemistry and Hematology Lab Results on record with [place] for the patient. Radiology Reports and Pathology Reports are provided separately, in subsequent sections. Lab Results This section contains the Chemistry/Hematology Results that were resulted 30 days before or 30 daysafter the date of the Encounter. Date/Time Source Result Type Result - Unit Interpretation Reference Range Comment Mar 22, 2024 10:36 AM [facility] TSH Specimen Type: SERUM No comment entered. Ordering Provider: ARTURO AUGUSTIN Report Released Date/Time: Mar 17, 2024 09:34 AM Reporting Lab: [facility] [address] [facility] [address] Performing Lab: [facility] [address] [facility] [address] TSH 1.45 u[IU]/mL 0.35-5.00 Mar 22, 2024 10:36 AM [facility] HEMOGLOBIN A1C PANEL Specimen Type: BLOOD Comment: Values obtained from A1C measurements can vary. For atypical A1C assays, a reported value of 7.0 could actually be between 6.72 and 7.28 if measured by a reference method. A reported value of 9.0 could actually be between 8.73 and 9.27. Ref: http://www.ngs p.org/CAPdata. asp Ordering Provider: ARTURO AUGUSTIN Report Released Date/Time: Mar 17, 2024 09:34 AM Reporting Lab: [address] [address] Performing Lab: [address] [address] HEMOGLOBIN A1C 5.8 H 4.0-5.6 Mar 22, 2024 10:36 AM [facility] LIPID PANEL FASTING Specimen Type: SERUM No comment entered. Ordering Provider: ARTURO AUGUSTIN Report Released Date/Time: Mar 17, 2024 09:34 AM Reporting Lab: [address] [address] Performing Lab: [address] [address] CHOLESTEROL 146 mg/dL TRIGLYCERIDE 59 mg/dL 0-150 LDL calculated 99 mg/dL 0-129 CHOL/HDL 4.2 HDL CHOLESTEROL 35 mg/dL L 40-60 Mar 22, 2024 10:36 AM [facility] BASIC METABOLIC PANEL (fasting) Specime n Type: SERUM No comment entered. Ordering Provider: ARTURO AUGUSTIN Report Released Date/Time: Mar 17, 2024 09:34 AM Reporting Lab: [address] [address] Performing Lab: [address] [address] UREA NITROGEN 22 mg/dL 7-25 GLUCOSE 105 mg/dL H 65-100 SODIUM 139 mmol/L 135-145 POTASSIUM 4.0 mmol/L 3.5-5.0 CHLORIDE 104 mmol/L 100-110 CO2 27 meq/L 20-30 CREATININE, Serum 0.78 mg/dL 0.50-1.40 eGFR(CKD-EPI 2020) >90 mL/min >60 Mar 22, 2024 10:36 AM [facility] LIVER FUNCTION Specimen Type: SERUM No comment entered. Ordering Provider: ARTURO AUGUSTIN Report Released Date/Time: Mar 17, 2024 09:34 AM Reporting Lab: [address] [address] Performing Lab: [address] [address] PROTEIN,TOTAL 7.2 g/dL 6.0-8.3 ALBUMIN 3.9 g/dL 3.5-5.0 ALKALINE PHOSPHATASE 110 U/L 40-150 AST 30 U/L 5-34 ALT 43 U/L BILIRUBIN, TOTAL 0.5 mg/dL 0.2-1.2 Mar 22, 2024 10:36 AM [facility] CBC AND DIFF (AUTO) Specimen Type: BLOOD No comment entered. Ordering Provider: ARTURO AUGUSTIN Report Released Date/Time: Mar 17, 2024 09:34 AM Reporting Lab: [address] [address] Performing Lab: [address] [address] WBC 7.35 10*3/uL 4.50-11.00 RBC 5.67 10*6/uL [...] 0.3 0.0-0.7 IMMATURE GRAN, ABS 0.02 10*3/uL 0.00-0.06 NRBC % 0.0 0.0-0.0 NRBC, ABS 0.00 10*3/uL 0.00-0.00 Encounter Notes: All associated encounter notes This section contains the clinical notes associated to the Encounter. Date/Time Encounter Note(s) Provider Source Apr 05, 2024 11:49 AM ADMINISTRATIVE NOTE: LOCAL TITLE: ADMINISTRATIVE NOTE STANDARD TITLE: ADMINISTRATIVE NOTE DATE OF NOTE: APR 05, 2024@11:49 ENTRY DATE: APR 05, 2024@11:49:08 AUTHOR: LEVON ARMENDARIZ COSIGNER: URGENCY: STATUS: COMPLETED CC Vendor contacted [facility] requesting new referral/auth for con't of care. A new referral for [facility] for couples therapy, a new referral would be needed for a the following CC Vendor: Mr. Merlin Couch [address] [place] [address] Fax: [phone] was seen on 04/01/24 /tavares/ LEVON ARMENDARIZ Signed: 04/05/2024 11:55 Receipt Acknowledged By: 04/05/2024 14:35 /tavares/ JODY Rodriguez CRYPTOGRAPHIC VULNERABILITY ANALYST LEVON ARMENDARIZ [facility]
--- OUTSIDE RECORDS SUMMARY | 2024-04-23 22:40 | XMS_ITS | Encounter Summary ---
Author Name [place] Organization [place] Address [address] [place] [address] Care Team Providers Care City Planning Aide Name Role Phone ARTURO COCHRAN Primary Care [...] Gunn's Name Patient's Relationship to Policy Gunn [facility] Mar 16, 2024 01 [id number] RA ROBLES ADAMSON PATIENT Selected Encounter This section includes the information on record at [place] for the Encounter. Date/Time Encounter Type Encounter Description Reason Pro vider Source Apr 11, 2024 02:00 PM Outpatient Encounter POLYTRAUMA/TBI IND IHE Encounter Template Text not used by [facility] Plan of Treatment: Future Appointments (+ 6 months) and Future Tests (+/- 45 days) The Plan of Treatment section includes future care activities for the patient from all [place] treatmentfacilities. This section includes future appointments and future orders which are active, pending or scheduled. Future Appointments This section includes appointments that were scheduled to occur 6 months from the date of the Encounter, up to a maximum of 20 appointments. The data comes from all [place] treatment facilities. Appointment Date/Time Appointment Type Appointme nt Facility Name Apr 14, 2024 12:30 PM [facility]BULATORY - MEDICINE [facility] Apr 26, 2024 09:30 AM AMBULATORY - PSYCHIATRY [facility] Active, Pending, and Scheduled Orders This section includes a listing of several types of active, pending, and scheduled orders, including clinic medications orders, diagnostic test orders, procedure orders and consult orders; where the start date of the order is 45 days before the date of the Encounter or 45 days after the date of theEncounter. The data comes from all [place] treatment facilities. Test Date/Time Test Type Test Details Facility Name Apr 05, 2024 02:35 PM Consult Order [facility]- PSYCHOTHERAPY Cons Animator's Choice [facility] Lab Results: +/- 30 days of the encounter This section includes the Chemistry and Hematology Lab Results on record with [place] for the patient. Radiology Reports and Pathology Reports are provided separately, in subsequent sections. Lab Results This section contains the Chemistry/Hematology Results that were resulted 30 days before or 30 daysafter the date of the Encounter. Date/Time Source Result Type Result - Unit Interpretation Reference Range Comment Mar 22, 2024 10:36 AM [facility] TSH Specimen Type: SERUM No comment entered. Ordering Provider: ARTURO AUGUSTIN Report Released Date/Time: Mar 17, 2024 09:34 AM Reporting Lab: [facility] [address] [address] Performing Lab: [facility] [address] [address] TSH 1.45 u[IU]/mL 0.35-5.00 Mar 22, 2024 10:36 AM [facility] HEMOGLOBIN A1C PANEL Specimen Type: BLOOD Comment: [...] Mar 17, 2024 09:34 AM Reporting Lab: [facility] [address] [address] Performing Lab: [facility] [address] [address] HEMOGLOBIN A1C 5.8 H 4.0-5.6 Mar 22, 2024 10:36 AM [facility] LIPID PANEL FASTING Specimen Type: SERUM No comment entered. Ordering Provider: ARTURO AUGUSTIN Report Released Date/Time: Mar 17, 2024 09:34 AM Reporting Lab: [facility] [address] [address] Performing Lab: [address] [address] CHOLESTEROL 146 mg/dL TRIGLYCERIDE 59 mg/dL 0-150 LDL calculated 99 mg/dL 0-129 CHOL/HDL 4.2 HDL CHOLESTEROL 35 mg/dL L 40-60 Mar 22, 2024 10:36 AM [facility] BASIC METABOLIC PANEL (fasting) Specime n Type: SERUM No comment entered. Ordering Provider: ARTURO AUGUSTIN Report Released Date/Time: Mar 17, 2024 09:34 AM Reporting Lab: [address] [address] Performing Lab: [address] [address] UREA NITROGEN 22 mg/dL 7-25 GLUCOSE 105 mg/dL H 65-100 SODIUM 139 mmol/L 135-145 POTASSIUM 4.0 mmol/L 3.5-5.0 CHLORIDE 104 mmol/L 100-110 CO2 27 meq/L 20-30 CREATININE, Serum 0.78 mg/dL 0.50-1.40 eGFR(CKD-EPI 2020) >90 mL/min >60 Mar 22, 2024 10:36 AM [facility] LIVER FUNCTION Specimen Type: SERUM No comment entered. Ordering Provider: ARTURO AUGUSTIN Report Released Date/Time: Mar 17, 2024 09:34 AM Reporting Lab: [address] [address] Performing Lab: [facility] [address] [address] PROTEIN,TOTAL 7.2 g/dL 6.0-8.3 ALBUMIN 3.9 g/dL 3.5-5.0 ALKALINE PHOSPHATASE 110 U/L 40-150 AST 30 U/L 5-34 ALT 43 U/L BILIRUBIN, TOTAL 0.5 mg/dL 0.2-1.2 Mar 22, 2024 10:36 AM [facility] CBC AND DIFF (AUTO) Specimen Type: BLOOD No comment entered. Ordering Provider: ARTURO AUGUSTIN Report Released Date/Time: Mar 17, 2024 09:34 AM Reporting Lab: [address] [address] Performing Lab: [address] [address] WBC 7.35 10*3/uL 4.50-11.00 RBC 5.67 10*6/uL [...] Encounter. Date/Time Encounter Note(s) Provider Source Apr 11, 2024 02:41 PM CLERICAL NOTE: LOCAL TITLE: APPOINTMENT NO SHOW STANDARD TITLE: CLERICAL NOTE DATE OF NOTE: APR 11, 2024@14:41 ENTRY DATE: APR 11, 2024@14:41:49 AUTHOR: MORGAN STOKES EXP COSIGNER: URGENCY: STATUS: COMPLETED APPOINTMENT NO SHOW Has ADDENDA Patient Name: SAMIA ADAMSON JR Patient SSN: [id number] Date and time of Appointment No show : 04/11/24 14:00 PATIENT PHONE - PHONE NUMBER [CELLULAR] - Patient's medical record was reviewed. Follow-up actions were determined and initiated: Please check/complete as applies: [ ]Telephoned Directly [ ]Re-scheduled for next available appt [ ]Sent a N0-show letter ( must call for appointment) [X]Other (Emergent/Overbook, etc.): Additional Comments: [place] did not arrive for scheduled appt, please call to reschedule Future Clinic Visits 04/14/2024 12:30 CWM/SO/VVC/PACT 5 04/26/2024 09:30 CWM/SO/VVC/MHC/PSYTR 1 /tavares/ Alysa TAVARESSLeah,[facility]-CLIENT LIAISON SPEECH-LANGUAGE PATHOLOGIST Signed: 04/11/2024 14:43 Receipt Acknowledged By: 04/11/2024 15:34 /tavares/ DAVE TAYLOR ADVANCED MAINTENANCE DEPARTMENT MANAGER 04/12/2024 08:16 /tavares/ TADEO VILLATORO LEAD MAINTENANCE DEPARTMENT MANAGER 04/19/2024 ADDENDUM STATUS: COMPLETED lft msg to reschedule /tavares/ TADEO VILLATORO LEAD MAINTENANCE DEPARTMENT MANAGER Signed: 04/19/2024 14:05 MORGAN STOKES [facility]
--- OUTSIDE RECORDS SUMMARY | 2024-04-23 22:40 | XMS_ITS ---
Author Name [place] Address [address] [place] [address] Care Team Providers Care Fiscal Officer Name Role Phone ARTURO COCHRAN Primary Care [...] Gunn's Name Patient's Relationship to Policy Gunn [facility] MEDICAID [facility] Mar 16, 2024 01 [id number] RA ROBLES ADAMSON PATIENT Selected Encounter This section includes the information on record at [place] for the Encounter. Date/Time Encounter Type Encounter Description Reason Provider Source Mar 25, 2024 08:30 AM COGNITIVE TEST BY HC PRO POLYTRAUMA/TBI IND ICD-10-CM R41.841 Cognitive communication deficit KENZIE STOKES [facility] Encounter Template Text not used by [place] Assessments - Encounter Diagnoses This section includes the primary and secondary diagnoses documented for the Encounter. Date/Time Primary/Secondary Diagnosis Diagnosis Name Provider Source Mar 25, 2024 09:22 AM PRIMARY Cognitive communication deficit [facility]ES [facility] Plan of Treatment: Future Appointments (+ 6 months) and Future Tests (+/- 45 days) The Plan of Treatment section includes future care activities for the patient from all [place] treatmentfac[facility]. This section includes future appointments and future orders which are active, pending or scheduled. Future Appointments This section includes appointments that were scheduled to occur 6 months from the date of the Encounter, up to a maximum of 20 appointments. The data comes from all [facility]. Appointment Date/Time Appointment Type Appointme nt Facility Name Mar 29, 2024 09:30 AM AMBULATORY - PSYCHIATRY [facility] Apr 01, 2024 08:00 AM AMBULATORY - PSYCHIATRY [facility] Apr 06, 2024 09:00 AM AMBULATORY - PSYCHIATRY [facility] Apr 11, 2024 02:00 PM AMBULATORY - REHAB MEDICIN E [facility] Apr 14, 2024 12:30 PM [facility] Apr 26, 2024 09:30 AM AMBULATORY - PSYCHIATRY [facility] Active, Pending, and Scheduled Orders This section includes a listing of several types of active, pending, and scheduled orders, including clinic medications orders, diagnostic test orders, procedure orders and consult orders; where the start date of the order is 45 days before the date of the Encounter or 45 days after the date of theEncounter. The data comes from all [facility]. Test Date/Time Test Type Test Details Facility Name Apr 05, 2024 02:35 PM Consult Order [facility]- PSYCHOTHERAPY Cons Trolley Car Overhauler's Choice [facility] Lab Results: +/- 30 days of the encounter This section includes the Chemistry and Hematology Lab Results on record with [place] for the patient. Radiology Reports and Pathology Reports are provided separately, in subsequent sections. Lab Results This section contains the Chemistry/Hematology Results that were resulted 30 days before or 30 daysafter the date of the Encounter. Date/Time Source Result Type Result - Unit Interpretation Reference Range Comment Mar 22, 2024 10:36 AM [facility] HEMOGLOBIN A1C PANEL Specimen Type: BLOOD Comment: [...] Mar 17, 2024 09:34 AM Reporting Lab: [place] [facility] [place] [facility] [address] [facility] [address] Performing Lab: [place] [facility] [address] [address] HEMOGLOBIN A1C 5.8 H 4.0-5.6 Mar 22, 2024 10:36 AM [facility] TSH Specimen Type: SERUM No comment entered. Ordering Provider: ARTURO AUGUSTIN Report Released Date/Time: Mar 17, 2024 09:34 AM Reporting Lab: [place] [facility] [address] Performing Lab: [facility] [address] TSH 1.45 u[IU]/mL 0.35-5.00 Mar 22, 2024 10:36 AM [facility] LIPID PANEL FASTING Specimen Type: SERUM No comment entered. Ordering Provider: ARTURO AUGUSTIN Report Released Date/Time: Mar 17, 2024 09:34 AM Reporting Lab: [place] [facility] [address] [address] Performing Lab: [place] [facility] [address] CHOLESTEROL 146 mg/dL TRIGLYCERIDE 59 mg/dL 0-150 LDL calculated 99 mg/dL 0-129 CHOL/HDL 4.2 HDL CHOLESTEROL 35 mg/dL L 40-60 Mar 22, 2024 10:36 AM [facility] BASIC METABOLIC PANEL (fasting) Specime n Type: SERUM No comment entered. Ordering Provider: ARTURO AUGUSTIN Report Released Date/Time: Mar 17, 2024 09:34 AM Reporting Lab: [place] [facility] [place] [address] [address] Performing Lab: [place] [facility] [address] [address] UREA NITROGEN 22 mg/dL 7-25 GLUCOSE 105 mg/dL H 65-100 SODIUM 139 mmol/L 135-145 POTASSIUM 4.0 mmol/L 3.5-5.0 CHLORIDE 104 mmol/L 100-110 CO2 27 meq/L 20-30 CREATININE, Serum 0.78 mg/dL 0.50-1.40 eGFR(CKD-EPI 2020) >90 mL/min >60 Mar 22, 2024 10:36 AM [facility] LIVER FUNCTION Specimen Type: SERUM No comment entered. Ordering Provider: ARTURO AUGUSTIN Report Released Date/Time: Mar 17, 2024 09:34 AM Reporting Lab: [address] [address] Performing Lab: [address] [address] PROTEIN,TOTAL 7.2 g/dL 6.0-8.3 ALBUMIN 3.9 g/dL 3.5-5.0 ALKALINE PHOSPHATASE 110 U/L 40-150 AST 30 U/L 5-34 ALT 43 U/L BILIRUBIN, TOTAL 0.5 mg/dL 0.2-1.2 Mar 22, 2024 10:36 AM [facility] CBC AND DIFF (AUTO) Specimen Type: BLOOD No comment entered. Ordering Provider: ARTURO AUGUSTIN Report Released Date/Time: Mar 17, 2024 09:34 AM Reporting Lab: [address] [address] Performing Lab: [address] [address] WBC 7.35 10*3/uL 4.50-11.00 RBC 5.67 10*6/uL [...] Encounter. Date/Time Encounter Note(s) Provider Source Mar 25, 2024 08:54 AM SPEECH PATHOLOGY C ONSULT: LOCAL TITLE: CONSULT REPORT/SPEECH/SWALLOWING STANDARD TITLE: SPEECH PATHOLOGY CONSULT DATE OF NOTE: MAR 25, 2024@08:54 ENTRY DATE: MAR 25, 2024@08:54:45 AUTHOR: MORGAN STOKES COSIGNER: AMADEO BISHOP URGENCY: STATUS: COMPLETED S: is seen F2F regarding reported cognitive communication deficits. Consult initiated by TBI for concerns related to X. is a 33-year-old male with a history of TBI & ADHD Active problems - Computerized Problem List is the source for the followin. Housing problem 2. Attention deficit hyperactivity disorder, combined type 3. Chronic post-traumatic stress disorder 4. Exposure to potentially hazardous substance ([facility] [id number]) 5. Tobacco use 6. Pain of bilateral knee joints 7. Low back pain 8. Nondependent alcohol abuse in remission Progress notes reviewed. 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 Left the [employer] in 2011. Just started back at school, studying for BS in psychology. Attends [employer] and is transferring to [employer]. States that he normally has pretty good memory, but now has challenges with memory, where he forgets what was just said to him. He writes everything down so he doesn't forget the things that he needs to do. He forgets where he puts things down if he walks away from them. Has tried to develop a routine where he puts things back in the same place all the time. //The Functional Assessment of Verbal Reasoning and Executive Strategies (FAVRES) was administered. This assessment measures verbal reasoning, complex comprehension, discourse, and executive functioning during performance on a set of challenging functional tasks. //Review of the patient's medical history and identifying physical and mental health issues that can impact cognitive function. //Education regarding the role of speech pathology in cognitive- communication therapy, a definition of cognitive-communication therapy and discussion of what to expect in treatment. //Education with discussion of the effects of chronic stress on cognition and communication with identification of medical issues that may be impacting current function. //Discussion of the impact of the cognitive-communication deficit on daily activities. A: Patient presents with a reported cognitive communication impairment and will benefit from further diagnostic therapy. P: RTC 04/11/24 @ 1400 /es/ MORGAN STOKES M.S.,CCC-AIRCONDITIONING DRAFTING OFFICER SPEECH-LANGUAGE PATHOLOGIST Signed: 04/07/2024 08:56 /es/ DO ARTI STINSONATRIST Cosigned: 04/18/2024 23:42 MORGAN STOKES [facility]
--- OUTSIDE RECORDS SUMMARY | 2024-04-23 22:40 | XMS_ITS | Encounter Summary ---
Author Name [place] Address [address] [place] [address] Care Team Providers Care Slip Presser Name Role Phone ARTURO COCHRAN Primary Care [...] Gunn's Name Patient's Relationship to Policy Gunn [facility] MEDICAID [facility] Mar 16, 2024 01 [id number] RA ROBLES ADAMSON PATIENT Selected Encounter This section includes the information on record at [place] for the Encounter. Date/Time Encounter Type Encounter Description Reason Pro vider Source Apr 06, 2024 09:00 AM Outpatient [facility] Encounter Template Text not used by [place] Plan of Treatment: Future Appointments (+ 6 months) and Future Tests (+/- 45 days) The Plan of Treatment section includes future care activities for the patient from all [place] treatmentfacilities. This section includes future appointments and future orders which are active, pending or scheduled. Future Appointments This section includes appointments that were scheduled to occur 6 months from the date of the Encounter, up to a maximum of 20 appointments. The data comes from all [place] treatment facilities. Appointment Date/Time Appointment Type Appointme nt Facility Name Apr 11, 2024 02:00 PM AMBULATORY - REHAB MEDICIN E [facility] Apr 14, 2024 12:30 PM [facility] Apr 26, 2024 09:30 AM AMBULATORY - PSYCHIATRY [facility] Active, Pending, and Scheduled Orders This section includes a listing of several types of active, pending, and scheduled orders, including clinic medications orders, diagnostic test orders, procedure orders and consult orders; where the start date of the order is 45 days before the date of the Encounter or 45 days after the date of theEncounter. The data comes from all [place] treatment facilities. Test Date/Time Test Type Test Details Facility Name Apr 05, 2024 02:35 PM Consult Order [facility]- PSYCHOTHERAPY Cons Aerobics Teacher's Choice [facility] Lab Results: +/- 30 days of the encounter This section includes the Chemistry and Hematology Lab Results on record with [place] for the patient. Radiology Reports and Pathology Reports are provided separately, in subsequent sections. Lab Results This section contains the Chemistry/Hematology Results that were resulted 30 days before or 30 daysafter the date of the Encounter. Date/Time Source Result Type Result - Unit Interpretation Reference Range Comment Mar 22, 2024 10:36 AM [facility] HEMOGLOBIN A1C PANEL Specimen Type: BLOOD Comment: [...] Mar 17, 2024 09:34 AM Reporting Lab: [facility] [address] [facility] [address] Performing Lab: [facility] [address] [facility] [address] HEMOGLOBIN A1C 5.8 H 4.0-5.6 Mar 22, 2024 10:36 AM [facility] TSH Specimen Type: SERUM No comment entered. Ordering Provider: ARTURO AUGUSTIN Report Released Date/Time: Mar 17, 2024 09:34 AM Reporting Lab: [facility] [address] [facility] [address] Performing [facility]: [facility] [address] [address] TSH 1.45 u[IU]/mL 0.35-5.00 Mar 22, 2024 10:36 AM [facility] BASIC METABOLIC PANEL (fasting) Specime n Type: SERUM No comment entered. Ordering Provider: ARTURO AUGUSTIN Report Released Date/Time: Mar 17, 2024 09:34 AM Reporting Lab: [facility] [address] [address] Performing Lab: [facility] [address] [address] UREA NITROGEN 22 mg/dL 7-25 GLUCOSE 105 mg/dL H 65-100 SODIUM 139 mmol/L 135-145 POTASSIUM 4.0 mmol/L 3.5-5.0 CHLORIDE 104 mmol/L 100-110 CO2 27 meq/L 20-30 CREATININE, Serum 0.78 mg/dL 0.50-1.40 eGFR(CKD-EPI 2020) >90 mL/min >60 Mar 22, 2024 10:36 AM [facility] LIPID PANEL FASTING Specimen Type: SERUM No comment entered. Ordering Provider: ARTURO AUGUSTIN Report Released Date/Time: Mar 17, 2024 09:34 AM Reporting Lab: [facility] [address] [address] Performing Lab: [facility] [address] [address] CHOLESTEROL 146 mg/dL TRIGLYCERIDE 59 mg/dL 0-150 LDL calculated 99 mg/dL 0-129 CHOL/HDL 4.2 HDL CHOLESTEROL 35 mg/dL L 40-60 Mar 22, 2024 10:36 AM [facility] LIVER FUNCTION Specimen Type: SERUM No comment entered. Ordering Provider: ARTURO AUGUSTIN Report Released Date/Time: Mar 17, 2024 09:34 AM Reporting Lab: [facility] [address] [address] Performing Lab: [facility] [address] [facility] [address] PROTEIN,TOTAL 7.2 g/dL 6.0-8.3 ALBUMIN 3.9 g/dL 3.5-5.0 ALKALINE PHOSPHATASE 110 U/L 40-150 AST 30 U/L 5-34 ALT 43 U/L BILIRUBIN, TOTAL 0.5 mg/dL 0.2-1.2 Mar 22, 2024 10:36 AM [facility] CBC AND DIFF (AUTO) Specimen Type: BLOOD No comment entered. Ordering Provider: ARTURO AUGUSTIN Report Released Date/Time: Mar 17, 2024 09:34 AM Reporting Lab: [address] [address] Performing Lab: [address] [address] WBC 7.35 10*3/uL 4.50-11.00 RBC 5.67 10*6/uL [...] and tobacco- related health factors from the [place] facility where the Encounter took place. Current Smoking Status This section includes the most current smoking, or tobacco-related health factor, from the [place] facility where the Encounter took place. Date/Time Current Smoking Status Comment Facil [facility] Jun 11, 2023 10:00 AM VA-TOBACCO DOESNT USE [place] 30 MIN WAKEUP [facility] Tobacco Use History This section includes a history of the smoking, or tobacco-related health factors, that were collected on or before the date of the Encounter. The data comes from the [place] facility where the Encounter took place. Date/Time Smoking Status/Tobacco Use Comment F acility Jun 11, 2023 10:00 AM VA-TOBACCO USE 1 TO < 5 YEARS [facility] Jun 11, 2023 10:00 AM VA-TOBACCO USE ADVICE [facility] Jun 11, 2023 10:00 AM VA-TOBACCO USE SOAP GRINDER NO [facility] Jun 11, 2023 10:00 AM VA-TOBACCO USE MED NO [facility] Jun 11, 2023 10:00 AM VA-TOBACCO USER SOME DAYS [facility] Jun 10, 2023 11:00 AM VA-TOBACCO DOESNT USE [place] 30 MIN WAKEUP [facility] Jun 10, 2023 11:00 AM VA-TOBACCO USE 1 TO < 5 YEARS [facility] Jun 10, 2023 11:00 AM VA-TOBACCO USE ADVICE [facility] Jun 10, 2023 11:00 AM VA-TOBACCO USE SOAP GRINDER NO [facility] Jun 10, 2023 11:00 AM VA-TOBACCO USE MED NO [facility] Jun 10, 2023 11:00 AM VA-TOBACCO USER EVERY DAY [facility] Jul 11, 2020 12:00 PM VA-TOBACCO NEVER USED [facility] Sep 08, 2018 12:40 PM VA-TOBACCO NEVER USED [facility] Encounter Notes: All associated encounter notes This [...] Patient Name: SAMIA ADAMSON JR Patient SSN: [id number] Date and time of Appointment No show [...] and left VM asking to call front desk manager and re-schedule. Future Clinic Visits 04/14/2024 12:30 CWM/SO/VVC/PACT 5 04/26/2024 09:30 CWM/SO/VVC/MHC/PSYTR 1 /es/ JUSTYN GUTIERREZ Social Work Pupil Personnel Services Director Signed: 04/06/2024 09:26 /es/ OPAL COMBS ANIMATION PRODUCER Cosigned: 04/06/2024 09:35 JUSTYN GUTIERREZ [facility]
--- OUTSIDE RECORDS SUMMARY | 2024-04-23 22:40 | XMS_ITS | Clinical Summary ---
Author Organization [facility] Address [address] [place] [address] Phone Care Team Providers Care Terminal Makeup Operator Name Role Phone Unavailable Primary Care Provider Unavailabl e Immunizations Immunization Administration Dates Next Due DTP 11/13/1998, 9,07/13/1998,1993,01/13/1990 Hep B, ped/adol 10/22/1999,05/02/1999,03/21/1999 Hib (PRP-T) 01/13/1990 IPV 11/13/1998, 9,07/13/1998,1989 MMR 10/22/1999,08/13/1989 OPV 04/09/1993 Td (adult) (MBL), 2 Lf tetan us toxoid, PF, adsorbed 10/22/1999 Family History Relation Name Status Comments Brother 1 Alive Brother: Alive and well, Alive and well Brother 2 Alive Brother: Alive and well, Alive and well Father Father: Diabete s mellitus Maternal Grandfather Materna l uncle: Diabetes mellitus Maternal Grandmother Materna l aunt: Diabetes mellitus Mother Alive Mother: Alive a nd well Paternal Grandfather Paterna l grandfather: Diabetes mellitus Social History Tobacco Use Types Packs/Day Years Used Date Smoking Tobacco: Never Assessed Sex and Gender Information Value Date Recorded Sex Assigned at Not on file Legal Sex Male 4:16 PM EDT Gender Identity Not on file Sexual Orientation Not on file Plan of Treatment Health Maintenance Due Date Last Done Comments Varicella Vaccines (1 of 2 - 13+ 2-dose series) 2001 Consider Men B Vaccine (1 of 2 - Bexsero 2-dose series) 2004 DTaP,Tdap,and Td Vaccines (7 - Tdap) 10/21/2009 10/22/1999, 11/13/1998, 09/12/1998, Additional history exists Influenza Vaccines (#1) 2023 COVID-19 Vaccine ( - season) 2023 HIB Vaccines Completed 01/13/1990 IPV Vaccines Completed 11/13/1998, 08/16, 07/13/1998, Additional history exists Hepatitis B Vaccines Completed 10/22/1999, 05/02/1999, 03/21/1999 MMR Vaccines Completed 10/22/1999, 08/13/1989 HPV Vaccines Aged Out No longer eligi ble based on patient's age to complete this topic Hepatitis A Vaccines Aged Out No long er eligible based on patient's age to complete this topic Men B Vaccine Aged Out No longer elig ible based on patient's age to complete this topic Meningococcal Vaccine Aged Out No laz chantel eligible based on patient's age to complete this topic Pneumococcal Vaccine Aged Out No long er eligible based on patient's age to complete this topic
--- OUTSIDE RECORDS SUMMARY | 2024-04-23 22:40 | XMS_ITS | Encounter Summary ---
Author Organization [facility] Address [address] [place] [address] Phone Care Team Providers Care Trench Digging Machine Operator Name Role Phone Tejas Turner MD Primary Care Provider [phone] Encounter Details Date Type Department Care Team (Late st Contact Info) Description 10/30/2016 Conversion Encounter [facility] [place] [address] [place] [address] Social History Tobacco Use Types Packs/Day Years Used Date Smoking Tobacco: Never Assessed Sex and Gender Information Value Date Recorded Sex Assigned at Not on file Legal Sex Male 4:16 PM EDT Gender Identity Not on file Sexual Orientation Not on file documented as of this encounter Plan of Treatment Not on file documented as of this encounter Visit Diagnoses Not on filedocumented in this encounter Care Teams Trench Digging Machine Operator Relationship Specialty Start Date End Date Tejas Turner MD [address] [place] [address] PCP - General 10/24/16 05/28/22 documented as of this encounter
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
--- OUTSIDE RECORDS SUMMARY | 2024-04-23 22:41 | XMS_ITS | Encounter Summary ---
Author Name [facility] [place] [facility] [place] Address [address] [place] [id number] Care Team Providers Care Affiliate Manager Name Role Phone ARTURO COCHRAN Primary Care [...] Gunn's Name Patient's Relationship to Policy Gunn [facility] Mar 16, 2024 01 [id number] RA ROBLES ADAMSON PATIENT Selected Encounter This section includes the information on record at [place] for the Encounter. Date/Time Encounter Type Encounter Description Reason Provider Source Apr 14, 2024 12:30 PM OFFICE O/P EST LOW 20 MIN PRIMARY CARE/MEDICINE ICD-10-CM I10 Essential (primary) hypertension ARTURO TORRES Jimmy Encounter Template Text not used by [place] Assessments - Encounter Diagnoses This section includes the primary and secondary diagnoses documented for the Encounter. Date/Time Primary/Secondary Diagnosis Diagnosis Name Provider Source Apr 15, 2024 10:50 AM PRIMARY Essential (primary) hypertension ARTURO AUGUSTIN [facility] Apr 15, 2024 10:50 AM SECONDARY Alcohol abuse, in remission NADARTURO SIMONS [facility] Apr 15, 2024 10:50 AM SECONDARY Attention-deficit hyperactivity disorder, combined type ARTURO AUGUSTIN [facility] Apr 15, 2024 10:50 AM SECONDARY Low back pain, unspecified ARTURO AUGUSTIN [facility] Apr 15, 2024 10:50 AM SECONDARY Pain in left knee ARTURO AUGUSTIN [facility] Apr 15, 2024 10:50 AM SECONDARY Pain in right knee CAROLINE CASTILLO,ARTURO Dos Santos [facility] Apr 15, 2024 10:50 AM SECONDARY Post-traumatic stress disorder, chronic ARTURO AUGUSTIN [facility] Apr 15, 2024 10:50 AM SECONDARY Prediabetes ARTURO AUGUSTIN [facility] Apr 15, 2024 10:50 AM SECONDARY Tobacco use ARTURO AUGUSTIN [facility] Plan of Treatment: Future Appointments (+ 6 months) and Future Tests (+/- 45 days) The Plan of Treatment section includes future care activities for the patient from all [facility]. This section includes future appointments and future orders which are active, pending or scheduled. Future Appointments This section includes appointments that were scheduled to occur 6 months from the date of the Encounter, up to a maximum of 20 appointments. The data comes from all [facility]. Appointment Date/Time Appointment Type Appointme nt Facility Name Apr 26, 2024 09:30 AM AMBULATORY - PSYCHIATRY [facility] Active, Pending, and Scheduled Orders This section includes a listing of several types of active, pending, and scheduled orders, including clinic medications orders, diagnostic test orders, procedure orders and consult orders; where the start date of the order is 45 days before the date of the Encounter or 45 days after the date of theEncounter. The data comes from all [facility]. Test Date/Time Test Type Test Details Facility Name Apr 05, 2024 02:35 PM Consult Order [facility] PSYCHOTHERAPY Cons [employer] Of [employer] [facility] Lab Results: +/- 30 days of the encounter This section includes the Chemistry and Hematology Lab Results on record with [place] for the patient. Radiology Reports and Pathology Reports are provided separately, in subsequent sections. Lab Results This section contains the Chemistry/Hematology Results that were resulted 30 days before or 30 daysafter the date of the Encounter. Date/Time Source Result Type Result - Unit Interpretation Reference Range Comment Mar 22, 2024 10:36 AM [facility] HEMOGLOBIN A1C PANEL Specimen Type: BLOOD Comment: [...] Mar 17, 2024 09:34 AM Reporting Lab: [address] [address] Performing Lab: [address] [address] HEMOGLOBIN A1C 5.8 H 4.0-5.6 Mar 22, 2024 10:36 AM [facility] TSH Specimen Type: SERUM No comment entered. Ordering Provider: ARTURO AUGUSTIN Report Released Date/Time: Mar 17, 2024 09:34 AM Reporting Lab: [facility] [address] [address] Performing Lab: [facility] [address] [address] TSH 1.45 u[IU]/mL 0.35-5.00 Mar 22, 2024 10:36 AM [facility] BASIC METABOLIC PANEL (fasting) Specime n Type: SERUM No comment entered. Ordering Provider: ARTURO AUGUSTIN Report Released Date/Time: Mar 17, 2024 09:34 AM Reporting Lab: [address] [address] Performing Lab: [address] [address] UREA NITROGEN 22 mg/dL 7-25 GLUCOSE 105 mg/dL H 65-100 SODIUM 139 mmol/L 135-145 POTASSIUM 4.0 mmol/L 3.5-5.0 CHLORIDE 104 mmol/L 100-110 CO2 27 meq/L 20-30 CREATININE, Serum 0.78 mg/dL 0.50-1.40 eGFR(CKD-EPI 2020) >90 mL/min >60 Mar 22, 2024 10:36 AM [facility] LIPID PANEL FASTING Specimen Type: SERUM No comment entered. Ordering Provider: ARTURO AUGUSTIN Report Released Date/Time: Mar 17, 2024 09:34 AM Reporting Lab: [address] [address] Performing Lab: [address] [address] CHOLESTEROL 146 mg/dL TRIGLYCERIDE 59 mg/dL 0-150 LDL calculated 99 mg/dL 0-129 CHOL/HDL 4.2 HDL CHOLESTEROL 35 mg/dL L 40-60 Mar 22, 2024 10:36 AM [facility] LIVER FUNCTION Specimen Type: SERUM No comment entered. Ordering Provider: ARTURO AUGUSTIN Report Released Date/Time: Mar 17, 2024 09:34 AM Reporting Lab: [address] [address] Performing Lab: [address] [address] PROTEIN,TOTAL 7.2 g/dL 6.0-8.3 ALBUMIN 3.9 g/dL 3.5-5.0 ALKALINE PHOSPHATASE 110 U/L 40-150 AST 30 U/L 5-34 ALT 43 U/L BILIRUBIN, TOTAL 0.5 mg/dL 0.2-1.2 Mar 22, 2024 10:36 AM [facility] CBC AND DIFF (AUTO) Specimen Type: BLOOD No comment entered. Ordering Provider: ARTURO AUGUSTIN Report Released Date/Time: Mar 17, 2024 09:34 AM Reporting Lab: [address] [address] Performing Lab: [address] [address] WBC 7.35 10*3/uL 4.50-11.00 RBC 5.67 10*6/uL [...] and tobacco- related health factors from the [place] facility where the Encounter took place. Current Smoking Status This section includes the most current smoking, or tobacco-related health factor, from the [place] facility where the Encounter took place. Date/Time Current Smoking Status Comment Felecia ramiresy Jun 11, 2023 10:00 AM VA-TOBACCO USER SOME DAYS [facility] Tobacco Use History This section includes a history of the smoking, or tobacco-related health factors, that were collected on or before the date of the Encounter. The data comes from the [place] facility where the Encounter took place. Date/Time Smoking Status/Tobacco Use Comment F aclorna Jun 11, 2023 10:00 AM VA-TOBACCO USE 1 TO < 5 YEARS [facility] Jun 11, 2023 10:00 AM VA-TOBACCO USE ADVICE [facility] Jun 11, 2023 10:00 AM VA-TOBACCO USE APPEALS BOARD REFEREE NO [facility] Jun 11, 2023 10:00 AM VA-TOBACCO USE MED NO [facility] Jun 11, 2023 10:00 AM VA-TOBACCO USER SOME DAYS [facility] Jun 10, 2023 11:00 AM VA-TOBACCO DOESNT USE WI 30 MIN WAKEUP [facility] Jun 10, 2023 11:00 AM VA-TOBACCO USE 1 TO < 5 YEARS [facility] Jun 10, 2023 11:00 AM VA-TOBACCO USE ADVICE [facility] Jun 10, 2023 11:00 AM VA-TOBACCO USE APPEALS BOARD REFEREE NO [facility] Jun 10, 2023 11:00 AM VA-TOBACCO USE MED NO [facility] Jun 10, 2023 11:00 AM VA-TOBACCO USER EVERY DAY [facility] Jul 11, 2020 12:00 PM VA-TOBACCO NEVER USED [facility] Sep 08, 2018 12:40 PM VA-TOBACCO NEVER USED [facility] Encounter Notes: All associated encounter notes This section contains the clinical notes associated to the Encounter. Date/Time Encounter Note(s) Provider Source Apr 14, 2024 12:30 PM PHYSICIAN NOTE: LOCAL TITLE: MD NOTE STANDARD TITLE: PHYSICIAN NOTE DATE OF NOTE: APR 14, 2024@12:30 ENTRY DATE: APR 13, 2024@22:48:35 AUTHOR: Marcus COCHRAN COSIGNER: URGENCY: STATUS: COMPLETED NOTE Has ADDENDA Pt is 33 y/o M, current light smoker with history of prediabetes, excessive alcohol use in remission, ADHD, PTSD called for f/u Last visit 06/2023 PCP is non [facility] Dr Blossom Montoya [facility] Other providers: --[place] [facility] -- [facility] Since last visit: #for reported h/o mTBI Evaluated by rehab 01/2024 -RTC prn) sx: tinnitus, anxiety, PTSD, headaches, random numbness and tingling sensation in various body parts, chronic pain, and memory issues. impression: many of patient's current symptoms are due to behavioral health conditions (mainly anxiety and ADHD) and chronic insomnia Patient referred to acupuncture, and HEALTH EDUCATION DIRECTOR for help with strategies navigating cognitive issues due to MH conditions and insomnia. #tinnitus, hearing loss-evaluated by audiology 2023 # per pt dx with high blood pressure and started on BP medications by none VA PCP- run out od meds, does not know what medication he takes not monitoring BP at home # growth on his kidneys f/w non va pcp # low back pain and knee pain - see previous note for more details chronic low back pain, random tingling and numbness in various body parts Cyclobenzaprine in the past- was helping with muscle relaxation and made him feel high which might help with insomnia Undergoing evaluation by non VA PCP per pt XR showed evidence of arthritis and he was referred to PT at [facility] Patient is physically active Regularly exercise Stretching helps # shoulder blade area - skin lesion referred to dermatology by non [place] PCP # Tobacco use-currently smokes 1 to 2 cigarettes/day, would like to get nicotine gum #PTSD, anxiety, ADHD, insomnia -followed by mental health started on medication PAST MEDICAL HISTORY: -- HTN -- prediabetes -- Knee pain b/l -- Low back pain -- Mild tinea pedis -- Loss of hearing R>>L -- Tinnitus -- Tobacco use -- alcohol abuse in remission -- epidermal inclusion cyst -- Housing problem -- ADHD, combined type -- Chronic PTSD PAST SURGICAL HISTORY: -- appendectomy ALLERGIES: silver MEDICATIONS: Reconciled today --AMPHETAMINE/DEXTROAMPHET 10MG SA --GUANFACINE 2MG 24HR Indication: FOR ADHD --DOXEPINE 25mg BEDTIME NEEDED FOR INSOMNIA --ESCITALOPRAM OXALATE 20MG FAMILY HISTORY: --DM:father/brother --Cancer:no --CA:no --CVA:no --Mental Health/addiction: no SOCIAL HISTORY: --Occupation: unemployed, 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 stay [employer] - one year away of bachelor degree --Cohabitation: twice, has his own appartment, stays [address] several times per week with current GF has 2 y old boy --Children: 4 kids from 3 relationships (ages 2/6/9/12 as of 2024)- shared custody for 3 older children adn 3 step kidds --Diet: well balanced diet except for last few months - high carbs intake --Exercise: 3-4/week, cardio, playing sports , push ups, sit ups --Caffeine: no --EtOH: quit drinking 2022 h/o withdrawal and last detox 2022 --Tob: smoking last 2-3 years, currently smoking 1 -2 cig per day --MJ:tried 3x in his life --Illicits:denies --Sexual activity: one partner last 3 years, his GF --Eye: no issues, UTD --Dental: overdue --Hospitalizations: last time hospitalized for alcohol detxx - 2022 ROS: Constitutional: no fever/no chills, no ns Eyes: no decreased vision/blurry vision Ears/Nose/Throat: hearing loss Respiratory: no cough/wheezing/SOB Cardiovascular: no CP /palpitations/le edema Gastrointestinal: no abdominal pain/bloody/black stools, n/v/c/d :no dysuria/hematuria/trouble voiding MSK: chronic b/l knee pain and LBP since service Neuro: no dizziness/H/A Skin: no pruritus/rash PHYSICAL EXAM: Vital Signs: WEIGHT self reported 190 lbs (03/2024) self reported 200 lbs (05/2023) 09/21/2018 11:37 215.6(97.79)[29*] AOx 3. NAD LABORATORY: 03/2024 WBC: 7.35 HGB: 16.2 HCT: 48.8 MCV: 86.1 PLT: 262 TSH (Access): 1.45 HGB A1C (WR): 5.8 H GLUCOSE: 105 H UREA NITROGEN: 22 CREATININE-EGFR: 0.78 eGFR CKD-EPI 2020: >90 SODIUM: 139 POTASSIUM: 4.0 CHLORIDE: 104 CO2: 27 PROTEIN,TOTAL: 7.2 ALBUMIN: 3.9 ALKALINE PHOSPHATASE: 110 BILIRUBIN,TOT.: 0.5 SGOT: 30 SGPT: 43 CHOLESTEROL: 146 TRIGLYCERIDE: 59 LDL CHOL: 99 CHOL/HDL RATIO: 4.2 HDL: 35 L ASSESSMENT/PLAN: Pt is 33 y/o M,current light smoker with history of prediabetes, excessive alcohol use #HTN - f/w non VA PCP - will obtain records -consequences of uncontrolled bp discussed with pt -start monitoring BP at home, goal <130/80 #prediabetes A1c 5.8, strong fhx of DM discussed diet, cut down carbs, avoid sugar containing bevarages c/w regular exercise, adequate hydration and will recheck a1c in 6m #Tobacco use: Currently smoking 1-2 cigarette/day, motivated to quit -declined Smoking cessation counseling and nicotine patch -refilled Nicotine gums q2h prn #alcohol abuse in remission: #anxiety, PTSD: Denies SI/HI -Encourage patient to refrain from alcohol -referred to accupuncture -f/w #Knee pain #Low back pain -Activity as tolerated -Continue with regular low impact exercise -managed by non VA PCP -referred to PT - will obtain outside records Healthcare maintenance: --Lipids: LDL 99 (03/2024) --Diabetes: A1c 5.8 (03/2024) --Colon CA (45-75): --Lung CA: --PSA --AAA (smoker/65): --Influenza (yrly): --COVID x3 --PCV20: --PCV23: --RZV (>50yrs, x2): --TDAP: 2023 --Hep C screen: --HIV screen: --DEXA: --Advanced Directives: Return to clinic to see me in 6 months, sooner PRN. Virtual ( ), F2F ( x ) (x )fasting labs ordered prior to f/u ( x)request records from outside providers -please request records from non VA PCP Medication Reconciliation: Outpatient: Has the patient been taking medications as documented in the EMLR? No: Discrepencies were identified. See below. Essential Medication List for Review used to complete this medication reconciliation. INCLUDED IN THIS LIST: Alphabetical list of active outpatient prescriptions dispensed from this [facility] (local) and dispensed from another [place] or [facility] facility (remote) as well as inpatient orders (local, pending and active), local clinic medications, locally documented non-VA medications, and local prescriptions that have or been discontinued in the past 90 days. - Discrepancies were identified, addressed, and discussed with the patient/caregiver at this encounter. Discrepancies: chart updated - All changes in medications, including all non-VA/Herbal/OTC medications were entered into CPRS. - If there were any medications the patient should no longer take, they were discontinued. - The patient/caregiver was instructed to update this list, discard old lists, and take this list to the next appointment, whether with a VA or non-VA provider. /tavares/ ARTURO COCHRAN MD PHYSICIAN Signed: 04/15/2024 10:50 Receipt Acknowledged By: 04/20/2024 15:01 /tavares/ DENNY ORTEGA 04/20/2024 ADDENDUM STATUS: COMPLETED Records requested from PCP at [facility] as directed /will ORTEGA Signed: 04/20/2024 15:02 MIGUEL COCHRAN [facility] Apr 14, 2024 08:36 AM TELEHEALTH NOTE: LOCAL TITLE: VA VIDEO CONNECT PRIMARY CARE STANDARD TITLE: TELEHEALTH NOTE DATE OF NOTE: APR 14, 2024@08:36 ENTRY DATE: APR 14, 2024@08:36:29 AUTHOR: ASHLEY KEARNS COSIGNER: URGENCY: STATUS: COMPLETED VA Video Connect (VVC) Standard Documentation VVC Clinician Resources Only: E911 (Emergency Call Relay Center): [phone] National Veterans Crisis Line - 988 then press #1. [facility] Suicide Coordinator - [phone], Ext. [phone]; Back-up Ext. [phone] [place] Police, Ashish IVORY - [phone] Introduction: Visit is being conducted by [employer]. [place] identified with 2 identifiers: [X] Full Name [X] Date of [ ] VA ID Card Emergency Plan: [place] confirmed and/or provided the following information in case of emergency or technology failure. PATIENT PHONE - PHONE NUMBER [CELLULAR] - Is patient phone number correct, if not, enter below: [place]'s phone number: [address] [place] [id number] [place]'s present location and address for appointment: Same address as above [place]'s emergency contact name and phone number: Same address as above reported that location is private and safe: Yes Informed Consent: [place] informed of the risks and benefits of Telehealth video care. has the right to refuse video services. If refuses video visit, a [id number] visit will be scheduled. verbalized consent for this video visit: Yes provided consent for any other persons present for visit: N/A If yes, who and relationship to patient: Secure visit: Visit was locked for security and privacy:Yes Vital Signs Visualized during video visit: Additional comment: /tavares/ ASHLEY KEARNS LPN Licensed Practical Nurse Signed: 04/14/2024 12:34 ASHLEY KEARNS
--- OUTSIDE RECORDS SUMMARY | 2024-04-23 22:41 | XMS_ITS | Continuity of Care Document ---
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 PSYCHIATRIC DIAGNOSTIC INTERVIEW EXAMINATION [facility] PSYCHIATRIC DIAGNOSTIC INTERVIEW EXAMINATION [facility] CRUTCHES UNDERARM, WOOD, ADJUSTABLE OR FIXED, PAIR, WITH PADS, TIPS AND HANDGRIPS [facility] SCREENING TEST OF VISUAL ACUITY, QUANTITATIVE, BILATERAL [facility] YELLOW FEVER VACCINE, LIVE, FOR SUBCUTANEOUS USE [facility] TYPHOID VACCINE, CAPSULAR POLYSACCHARIDE (VICPS), FOR INTRAMUSCULAR USE 011 [facility] PURE TONE AUDIOMETRY (THRESHOLD); AIR ONLY [facility] VIS FUNCT SCREEN,AUTOMAT/SEMI-AU TOMAT BILAT QUANT DETERM VISUAL ACUITY,OCULAR ALIGN,COLOR VISION,PSEUDOISOCHROMA T PLATES,& FIELD VIS (MAY INC ALL/SOME SCRN DETERM FOR CONTRAST SENSITIV,VIS UND GLARE) [facility] EAR MOLD/INSERT, NOT DISPOSABLE, ANY TYPE [facility] Threshold Audiogram (Pure Tone) Threshold Audiogram (Pure Tone) 88672 VIRI MALDONADO [facility] Testing 41620 012 MALDONADOVIRI [facility] Visual Function Screening Visual Function Screening 37651 CHAPARRITA ZARATE [facility] Ear Protector Attenuation Measurements Ear Protector Attenuation Measurements 22881 012 SERGEI DUKE Threshold Audiogram (Pure Tone) Threshold Audiogram (Pure Tone) 92669 012 SERGEI DUKE [facility] Testing 04128 SERGEI DUKE Ear mold/insert, not disposable, any type SEGREI DUKE Vaccines Viral Yellow Fever Vaccines Viral Yellow Fever 79546 011 MULUGETA GAMBLE 0.5ML,SQ,LE FT ARM [facility] Immunization Administration By Injection, One Vaccine Immunization Administration By Injection, One Vaccine 65318 011 MULUGETA GAMBLE [facility] Typhoid Vaccine Vi Capsular Polysaccharide, For Intramus Use Typhoid Vaccine Vi Capsular Polysaccharide, For Intramus Use 50297 011 CAMILO SPEAR 0.5ml IM IN LEFT DELTOID BY NELL CLEMENTE Immunization Administration By Injection, One Vaccine Immunization Administration By Injection, One Vaccine 96023 011 CAMILO SPEAR [facility] Physician Supervised Injection Intramuscular Physician Supervised Injection Intramuscular 40631 011 FREDRICK CAVANAUGH Injection, adrenalin, epinephrine, 0.1 mg 011 FREDRICK CAVANAUGH Pulse Oximetry Pulse Oximetry 89487 011 FREDRICK CAVANAUGH Injection, methylprednisolone sodium succinate, up to 125 mg 011 FREDRICK CAVANAUGH Injection, diphenhydramine HCl, up to 50 mg 011 FREDRICK CAVANAUGH Physician Supervised Injection IV Each Additional Sequential Push New Substance Physician Supervised Injection IV Each Additional Sequential Push New Substance 74596 011 FREDRICK CAVANAUGH Physician Supervised Injection Intravenous Physician Supervised Injection Intravenous 45881 011 FREDRICK CAVANAUGH IV Infusion For Hydration Each Additional Hour IV Infusion For Hydration Each Additional Hour 82549 011 FREDRICK CAVANAUGH [facility] Infusion, normal saline solution , 1000 cc 011 FREDRICK CAVANAUGH [facility] Fecal Analysis - Occult Blood 011 EVER ARZATE [facility] Electrocardiogram Electrocardiogram 56200 07/29 011 KATTY OTERO [facility]ometry Group Testing [facility] Group Testing 01694 011 ANGELES TRUJILLO [facility] Injection, penicillin g benzathine, 100,000 units 011 JOB MALDONADO [facility] Influenza Virus Vaccine Intranasal Live Attenuated 011 JOB MALDONADO [facility] Meningococcal Polysaccharide Diphtheria Toxoid Conjugate Vaccine 011 [facility] Viral Polio, Inactivated Vaccines Viral Polio, Inactivated 97183 011 [facility] Influenza Virus Vaccine Pandemic Formulation Influenza Virus Vaccine Pandemic Formulation 07414 011 JOB MALDONADO [facility] Physician Supervised Injection Intramuscular Antibiotic Physician Supervised Injection Intramuscular Antibiotic 18570 011 JOB MALDONADO [facility] Venipuncture Venipuncture 91496 011 JOB MALDONADO [facility] Tdap Vaccine Tdap Vaccine 13254 011 JOB MALDONADO [facility] Immunization Administration By Injection, Each Additional Vaccine 011 JOB MALDONADO [facility] Immunization Admin By Intranasal / Oral Route One Vaccine Immunization Admin By Intranasal / Oral Route One Vaccine 57974 011 JOB MALDONADO [facility] Skin Test Anergy Tuberculin Intradermal Skin Test Anergy Tuberculin Intradermal 54072 011 JOB MALDONADO [facility] Visual Function Screening Visual Function Screening 50287 011 REBEKAH WALLER [facility] Psychiatric Diagnostic Evaluation Comprehensive Examination Psychiatric Diagnostic Evaluation Comprehensive Examination 26736 009 LO ABERNATHY [facility] Psychiatric Diagnostic Evaluation Comprehensive Examination Psychiatric Diagnostic Evaluation Comprehensive Examination 36044 009 STAN ROY [facility] Social History Combined list of available smoking, tobacco, and other social history from Department of Defense and 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 Social History Type Response Date Comment Sourc e Tobacco smoking status NHIS VA-TOBACCO D OESNT USE WI 30 MIN WAKEUP 06/11/2023 ORGAN History of tobacco use VA-TOBACCO USER SOME DAYS ORGAN History of tobacco use AK-TOBACCO USER EVERY DAY 4 ORGAN History of tobacco use AK-TOBACCO NEVER USED 07/11/2020 ORGAN History of tobacco use AK-TOBACCO NEVER USED 09/08/2018 ORGAN This section is an empty social history section. [facility] Plan of Care List of future care activities from Department of 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 Additional future care activities may be listed in the Assessment and Plan section. Date/Time Care Activity Care Activity Detail Facili ty 04/26/2024 AMBULATORY - PSYCHIATRY AMBULATORY - PSYC [place]ATRY [place] [facility] [place] [facility] 04/05/2024 Consult Order [facility] PSYCHOTHERAPY Cons [facility]ologist[facility] [place] [facility] [place] [facility]
--- OUTSIDE RECORDS SUMMARY | 2024-04-23 22:41 | XMS_ITS | Encounter Summary ---
Author Name [facility] [place] [facility] [place] Address [address] [place] [id number] Care Team Providers Care Manhole Stripper Name Role Phone ARTURO COCHRAN Primary Care [...] Gunn's Name Patient's Relationship to Policy Gunn [facility] MEDICAID [facility] Mar 16, 2024 01 [id number] RA ROBLES ADAMSON PATIENT Selected Encounter This section includes the information on record at [place] for the Encounter. Date/Time Encounter Type Encounter Description Reason Pro vider Source Mar 23, 2024 12:30 PM Outpatient Encounter PRIMARY CARE/MEDICINE IHE Encounter Template Text not used by [place] Plan of Treatment: Future Appointments (+ 6 months) and Future Tests (+/- 45 days) The Plan of Treatment section includes future care activities for the patient from all [place] treatmentfacilities. This section includes future appointments and future orders which are active, pending or scheduled. Future Appointments This section includes appointments that were scheduled to occur 6 months from the date of the Encounter, up to a maximum of 20 appointments. The data comes from all [place] treatment facilities. Appointment Date/Time Appointment Type Appointme nt Facility Name Mar 25, 2024 08:30 AM [facility] Mar 29, 2024 09:30 AM [facility] Apr 01, 2024 08:00 AM AMBULATORY - PSYCHIATRY [facility] Apr 06, 2024 09:00 AM AMBULATORY - PSYCHIATRY [facility] Apr 11, 2024 02:00 PM AMBULATORY - REHAB MEDICIN E [facility] Apr 14, 2024 12:30 PM AMBULATORY - MEDICINE [facility] Apr 26, 2024 09:30 AM AMBULATORY - PSYCHIATRY [facility] Active, Pending, and Scheduled Orders This section includes a listing of several types of active, pending, and scheduled orders, including clinic medications orders, diagnostic test orders, procedure orders and consult orders; where the start date of the order is 45 days before the date of the Encounter or 45 days after the date of theEncounter. The data comes from all [place] treatment facilities. Test Date/Time Test Type Test Details Facility Name Apr 05, 2024 02:35 PM Consult Order [facility] PSYCHOTHERAPY Cons Floor Polisher's Choice [facility] Lab Results: +/- 30 days of the encounter This section includes the Chemistry and Hematology Lab Results on record with [place] for the patient. Radiology Reports and Pathology Reports are provided separately, in subsequent sections. Lab Results This section contains the Chemistry/Hematology Results that were resulted 30 days before or 30 daysafter the date of the Encounter. Date/Time Source Result Type Result - Unit Interpretation Reference Range Comment Mar 22, 2024 10:36 AM [facility] HEMOGLOBIN A1C PANEL Specimen Type: BLOOD Comment: [...] Mar 17, 2024 09:34 AM Reporting Lab: [address] [address] Performing Lab: [place] [facility] [place] [facility] [address] [facility] [address] HEMOGLOBIN A1C 5.8 H 4.0-5.6 Mar 22, 2024 10:36 AM [facility] TSH Specimen Type: SERUM No comment entered. Ordering Provider: ARTURO AUGUSTIN Report Released Date/Time: Mar 17, 2024 09:34 AM Reporting [facility] [place] [facility] [address] [facility] [address] Performing Lab: [place] [facility] [place] [address] [address] TSH 1.45 u[IU]/mL 0.35-5.00 Mar 22, 2024 10:36 AM [facility] LIPID PANEL FASTING Specimen Type: SERUM No comment entered. Ordering Provider: ARTURO AUGUSTIN Report Released Date/Time: Mar 17, 2024 09:34 AM Reporting [facility]: [facility] [place] [address] [address] Performing Lab: [facility] [place] [address] [address] CHOLESTEROL 146 mg/dL TRIGLYCERIDE 59 mg/dL 0-150 LDL calculated 99 mg/dL 0-129 CHOL/HDL 4.2 HDL CHOLESTEROL 35 mg/dL L 40-60 Mar 22, 2024 10:36 AM [facility] BASIC METABOLIC PANEL (fasting) Specime n Type: SERUM No comment entered. Ordering Provider: ARTURO AUGUSTIN Report Released Date/Time: Mar 17, 2024 09:34 AM Reporting Lab: [place] [facility] [place] [facility] [address] [facility] [address] Performing Lab: [place] [facility] [place] [place] [address] [address] UREA NITROGEN 22 mg/dL 7-25 GLUCOSE 105 mg/dL H 65-100 SODIUM 139 mmol/L 135-145 POTASSIUM 4.0 mmol/L 3.5-5.0 CHLORIDE 104 mmol/L 100-110 CO2 27 meq/L 20-30 CREATININE, Serum 0.78 mg/dL 0.50-1.40 eGFR(CKD-EPI 2020) >90 mL/min >60 Mar 22, 2024 10:36 AM [facility] LIVER FUNCTION Specimen Type: SERUM No comment entered. Ordering Provider: ARTURO AUGUSTIN Report Released Date/Time: Mar 17, 2024 09:34 AM Reporting Lab: [address] [address] Performing Lab: [address] [address] PROTEIN,TOTAL 7.2 g/dL 6.0-8.3 ALBUMIN 3.9 g/dL 3.5-5.0 ALKALINE PHOSPHATASE 110 U/L 40-150 AST 30 U/L 5-34 ALT 43 U/L BILIRUBIN, TOTAL 0.5 mg/dL 0.2-1.2 Mar 22, 2024 10:36 AM [facility] CBC AND DIFF (AUTO) Specimen Type: BLOOD No comment entered. Ordering Provider: ARTURO AUGUSTIN Report Released Date/Time: Mar 17, 2024 09:34 AM Reporting Lab: [facility] [address] [facility] [address] Performing Lab: [address] [address] WBC 7.35 10*3/uL 4.50-11.00 RBC 5.67 10*6/uL [...] and tobacco- related health factors from the [place] facility where the Encounter took place. Current Smoking Status This section includes the most current smoking, or tobacco-related health factor, from the [place] facility where the Encounter took place. Date/Time Current Smoking Status Comment Facil ity Jun 11, 2023 10:00 AM VA-TOBACCO USER SOME DAYS [facility] Tobacco Use History This section includes a history of the smoking, or tobacco-related health factors, that were collected on or before the date of the Encounter. The data comes from the [place] facility where the Encounter took place. Date/Time Smoking Status/Tobacco Use Comment F acility Jun 11, 2023 10:00 AM VA-TOBACCO USE 1 TO < 5 YEARS [facility] Jun 11, 2023 10:00 AM VA-TOBACCO USE ADVICE [facility] Jun 11, 2023 10:00 AM VA-TOBACCO USE MANAGER CREDIT NO [facility] Jun 11, 2023 10:00 AM VA-TOBACCO USE MED NO [facility] Jun 11, 2023 10:00 AM VA-TOBACCO USER SOME DAYS [facility] Jun 10, 2023 11:00 AM VA-TOBACCO DOESNT USE WI 30 MIN WAKEUP [facility] Jun 10, 2023 11:00 AM VA-TOBACCO USE 1 TO < 5 YEARS [facility] Jun 10, 2023 11:00 AM VA-TOBACCO USE ADVICE [facility] Jun 10, 2023 11:00 AM VA-TOBACCO USE MANAGER CREDIT NO [facility] Jun 10, 2023 11:00 AM VA-TOBACCO USE MED NO [facility] Jun 10, 2023 11:00 AM VA-TOBACCO USER EVERY DAY [facility] Jul 11, 2020 12:00 PM VA-TOBACCO NEVER USED [facility] Sep 08, 2018 12:40 PM VA-TOBACCO NEVER USED [facility] Encounter Notes: All associated encounter notes This section contains the clinical notes associated to the Encounter. Date/Time Encounter Note(s) Provider Source Mar 17, 2024 01:49 PM ADMINISTRATIVE NOT E: LOCAL TITLE: ADMINISTRATIVE NOTE STANDARD TITLE: ADMINISTRATIVE NOTE DATE OF NOTE: MAR 17, 2024@13:49 ENTRY DATE: MAR 17, 2024@13:49:33 AUTHOR: DENNY BERNARDO COSIGNER: URGENCY: STATUS: COMPLETED [facility] [address] [place] [phone] * SAMIA ADAMSON [address] [place] [phone] Date: MAR 17, 2024 re: This is a reminder of your upcoming PCP appt with ARTURO COCHRAN. Appointment Date: Mar@12:30 Appointment Type: [facility] video connect (X)Fasting blood work NON fasting blood work LEFT MESSAGE ON VOICEMAIL TO CONFIRM VVC APPT AND LABWORK Sincerely, Office Staff for: ARTURO COCHRAN Primary Care Provider [facility] [address] [place] [address] T [phone] F [phone] Upcoming Appointments: 03/23/2024 09:00 SPOPC/MHC/SOCIAL WORK INT 03/23/2024 12:30 CWM/SO/VVC/PACT 5 03/25/2024 08:30 CWM NO TBI SPEECH 03/29/2024 09:30 CWM/SO/VVC/MHC/PSYTR 1 APPOINTMENT ABBREVIATION [place] (SPOPC OR SO = [place], [address] [facility]) (GOPC OR GO = [place], [address] [facility]) (NHM or NO = [facility]) (VVC - Video Call) (Tel-X Telephone Visit) (TH - Telehealth) /tavares/ DENNY ORTEGA Signed: 03/17/2024 13:50 DENNY BERNARDO
--- OUTSIDE RECORDS SUMMARY | 2024-04-23 22:41 | XMS_ITS | Encounter Summary ---
Author Name [facility] [place] [facility] [place] [facility] [place] Address [address] [place] [id number] Care Team Providers Care Assistant Kitchen Manager Name Role Phone ARTURO COCHRAN Primary [...] Gunn's Name Patient's Relationship to Policy [facility] Mar 16, 2024 01 [id number] RA ROBLES ADAMSON PATIENT Selected Encounter This section includes the information on record at [place] for the Encounter. Date/Time Encounter Type Encounter Description Reason Pro vider Source Oct 09, 2023 11:36 AM Outpatient Encounter ADMIN PAT ACTIVTIES (MASNONCT) IHE Encounter Template Text not used by [place] Plan of Treatment: Future Appointments (+ 6 [...] 20 appointments. The data comes from all [place] treatment facilities. Appointment Date/Time Appointment Type Appointme nt Facility Name Oct 29, 2023 11:00 AM [facility] [place] [facility] Nov 05, 2023 12:30 PM AMBULATORY - MEDICINE [facility] Dec 03, 2023 07:00 PM AM[facility]UL[facility]ORY [facility] [place] [facility] Dec 04, 2023 08:45 AM AMBULATORY - MEDICINE [facility] Dec 04, 2023 09:15 AM AMBULATORY - MEDICINE [facility] Dec 22, 2023 08:00 AM [facility] [place] [facility] Dec 22, 2023 09:00 AM [facility] [place] [facility] Jan 01, 2024 02:30 PM AMBULATORY - PS[facility] [place] [facility] Feb 01, 2024 09:30 AM AMBULATORY [facility] [place] [facility] Feb 04, 2024 02:30 PM AMBULATORY - REHAB MEDICIN [facility] [place] [facility] Mar 01, 2024 11:30 AM [facility]BULATORY [facility] [place] [facility] Mar 03, 2024 10:00 AM AMBULATORY - PSYCHIATRY [facility] Mar 23, 2024 09:00 AM AMBULATORY - PSYCHIATRY [facility] Mar 25, 2024 08:30 AM AMBULATORY - REHAB MEDICIN [facility] [place] [facility] Mar 29, 2024 09:30 AM AM[place]UL[place]ORY [place] [facility] [place] [facility] Apr 01, 2024 08:00 AM AM[place]UL[place]ORY [place] [facility] [place] [facility] Apr 06, 2024 09:00 AM AMBULATORY - PSYCHIATRY [facility] Encounter Notes: All associated encounter notes This section contains the clinical notes associated to the Encounter. Date/Time Encounter Note(s) Provider Source Oct 09, 2023 11:37 AM PHARMACY NOTE: LOCAL TITLE: PHARMACY CUSTOMER CARE MEDICATION RENEWAL STANDARD TITLE: PHARMACY NOTE DATE OF NOTE: OCT 09, 2023@11:37 ENTRY DATE: OCT 09, 2023@11:37:05 AUTHOR: ESME PRATHER COSIGNER: URGENCY: STATUS: COMPLETED Date: Sep Division: [facility] referred by Pharmacy Call Center for medication renewal: Controlled substance Medications requested: [id number] AMPHETAMINE/DEXTROAMPHET 20MG SA CAP Defer to specialty clinic To be picked up at Pharmacy. specifically requests the patient carrier NOT be [employer], if possible. Please review and renew if appropriate. *This note was generated by [facility] Pharmacy Customer Care. If you have any questions or need assistance, do not contact this author. Please refer all questions to your local, on-site pharmacy departments. /zamzam/ ESME PRATHER CPhT [employer], [place]/Pharmacy Customer Care Signed: 10/09/2023 11:39 Receipt Acknowledged By: 10/09/2023 11:40 /zamzam/ ESME HOLLINS M.D. [place] [facility]
[2024-04-24] MEDS: methocarbamoL 750 MG TABLET 1500 MG PO (00:01)
[2024-04-24] MEDS: Ketorolac Tromethamine 15 MG/ML VIAL IM (00:01)
[2024-04-24 00:16] VITALS: BP 114/61; PULSE 80; RESP 18; TEMP 36.4; O2SAT 99
[2024-04-24 00:17] VITALS: BP 114/61; PULSE 80; RESP 18; TEMP 36.4; O2SAT 99
== END 2024-04-24 00:18 | disposition home or self-care (01) ==
PROVIDERS: Emergency Provider Emergency Medicine; PCP Internal Medicine
DX: S16.1XXA Strain of muscle, fascia and tendon at neck level, initial encounter (principal); V43.62XA Car passenger injured in collision with other type car in traffic accident, initial encounter; M54.2 Cervicalgia; Y93.89 Activity, other specified; Y92.414 Local residential or business street as the place of occurrence of the external cause; Y99.9 Unspecified external cause status
CPT/HCPCS: 70450; 72125; 96372; 99284; J1885

== ENCOUNTER → 2024-04-23 21:01 | Outpatient (BNV) | payer OTHER, SELFPAY | PROVIDERS: Emergency Provider Emergency Medicine; PCP Internal Medicine; Visit Provider Radiology Neuroradiology | DX: S09.90XA Unspecified injury of head, initial encounter (principal); M54.2 Cervicalgia; V89.2XXA Person injured in unspecified motor-vehicle accident, traffic, initial encounter | CPT/HCPCS: 70450; 72125 ==

== ENCOUNTER 2024-04-24 13:04 | Emergency (ER) | payer OTHER, SELFPAY ==
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
[2024-04-24 13:28] VITALS: BP 117/69; PULSE 82; RESP 18; TEMP 36.8; O2SAT 97; BMI 27.1
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
[2024-04-24 15:54] VITALS: BP 117/69; PULSE 82; RESP 18; TEMP 36.8; O2SAT 97
== END 2024-04-24 15:55 | disposition home or self-care (01) ==
PROVIDERS: Emergency Provider Emergency Medicine; PCP Internal Medicine
DX: S13.4XXA Sprain of ligaments of cervical spine, initial encounter (principal); S80.11XA Contusion of right lower leg, initial encounter; R07.89 Other chest pain; R06.02 Shortness of breath; M25.561 Pain in right knee; V43.62XA Car passenger injured in collision with other type car in traffic accident, initial encounter; Y93.9 Activity, unspecified; Y92.410 Unspecified street and highway as the place of occurrence of the external cause; Y99.8 Other external cause status
CPT/HCPCS: 71046; 73564; 99282; 99283

== ENCOUNTER → 2024-04-24 13:45 | Outpatient (BNV) | payer OTHER, SELFPAY | PROVIDERS: PCP Internal Medicine; Visit Provider Radiology Diagnostic Radiology | DX: M25.561 Pain in right knee (principal); V89.2XXA Person injured in unspecified motor-vehicle accident, traffic, initial encounter; R07.9 Chest pain, unspecified; R06.02 Shortness of breath | CPT/HCPCS: 71046; 73564 ==

== ENCOUNTER 2024-06-08 09:16 | Outpatient (RCR) | payer OTHER, SELFPAY ==
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
== END 2024-06-23 08:31 | disposition home or self-care (01) ==
LOC: HO.PT 09:16
PROVIDERS: PCP Internal Medicine; Visit Provider Internal Medicine
DX: M54.9 Dorsalgia, unspecified (principal)
CPT/HCPCS: 97162

== ENCOUNTER 2024-07-28 10:05 | Emergency (ER) | payer OTHER, SELFPAY ==
[2024-07-28 10:35] VITALS: BP 117/78; PULSE 93; RESP 16; TEMP 36.4; O2SAT 97; BMI 29.2
--- NOTE | 2024-07-28 12:42 | ED_ITS ---
HPI - General Adult General Chief complaint: General Medical Stated complaint: needle stick at work Time Seen by Provider: 07/28/24 12:26 Source: patient, RN notes reviewed and old records reviewed Mode of arrival: ambulatory Limitations: no limitations History of Present Illness ED Provider: Fadia REILLY narrative: 34-year-old male presents for evaluation of a needlestick. Patient works at [employer]. He reports that he was taking out the trash when he felt a sharp poke into his right hand at the base of his thumb He unraveled a piece of paper and found several needles. They appear to have been used, but he did not notice any dried blood on the needle tips He has no way of knowing who the needles belonged to or what they were used for The patient washed his hands, he did not notice any blood from his own skin He reports being up-to-date on all of his vaccines Related Data Home Medications ?Medication ?Instructions ?Recorded ?Confirmed dextroamphetamine-amphetamine 20 25 mg PO DAILY 01/29/24 mg tablet (Adderall) guanfacine 2 mg tablet 2 mg PO BEDTIME 01/29/24 Previous Rx's ?Medication ?Instructions ?Recorded ketorolac 10 mg tablet 10 mg PO Q6H PRN pain #20 tabs 04/23/24 methocarbamol 750 mg tablet 1,500 mg (2 x 750 mg) PO Q8H PRN 04/23/24 pain, moderate #20 tabs emtricitabine 200 mg-tenofovir 1 tab PO DAILY #28 tabs 07/28/24 disoproxil fumarate 300 mg tablet (Truvada) raltegravir 400 mg tablet 400 mg PO BID #56 tabs 07/28/24 (Isentress) Allergies Allergy/AdvReac Type Severity Reaction Status Date / Time No Known Allergies Allergy Verified 07/28/24 10:38 [No Known Allergies*] Review of Systems 2 Constitutional: Constitutional: Denies body ache(s), Denies chills and Denies fever(s) Cardiovascular: Cardiovascular: Denies dyspnea Respiratory: Respiratory: Denies cough and Denies dyspnea Musculoskeletal: Musculoskeletal: Denies back pain Integumentary/Breasts: Skin/Breast: Denies rash Psychiatric: Psychiatric: Denies anxiety PMFSH Past Medical History Medical History Acute appendicitis Surgical History History of incision and drainage (~05/29/22) History of laparoscopic appendectomy (07/27/21) Social History Social History Household Members: Children Housing: Apartment Alcohol intake: current Patient Tobacco Use Status: Never used Tobacco e-Cigarette/Vaping Use: Never Used Second Hand Smoke Exposure: No Advance Directives: No Advance Directives Information Provided: Yes Physical Exam ED Vital Signs: Vital Signs - 24 hr 07/28/24 10:35 Temperature 97.6 F Pulse Rate 93 Respiratory Rate 16 Blood Pressure 117/78 Pulse Oximetry 97 Oxygen Delivery Method Room Air BMI result Body Mass Index 29.2 Skin Other: No significant wounds including puncture wounds, redness or bleeding to the right hand Medical Decision Making Medical Decision Making MDM Narrative: 34-year-old male presents for evaluation of a needlestick. This happened from needles found him in a trash bag. It is unclear what the needles were used for or who they belong to. Discussed risks and benefits of post exposure prophylaxis and the patient consents to being treated for HIV prophylaxis. He will be referred to work connections. Baseline labs were drawn Differential Diagnosis Differential Diagnoses: The differential diagnosis associated with the presentation includes Needlestick HIV exposure Hepatitis exposure Puncture wound Lab Data 07/28/24 12:52 07/28/24 12:52 Labs: Lab Results 07/28/24 Range/Units 12:52 WBC 6.2 (4.8-10.8) X10*3/uL RBC 5.32 (4.60-5.80) X10*6/uL Hgb 15.7 (14.0-18.0) g/dl Hct 46.7 (42.0-52.0) % MCV 87.8 (80.0-98.0) fL MCH 29.5 (27.0-33.0) pg MCHC 33.6 (31.0-36.0) g/dl RDW 14.6 (11.0-16.0) % Plt Count 224 (160-400) X10*3/uL MPV 9.8 (9.4-12.4) fL Immature Gran % (Auto) 0.2 (0.0-0.4) % Neut % (Auto) 59.1 (45-73) % Lymph % (Auto) 32.6 (20-40) % [place] % (Auto) 6.1 (2-11) % Eos % (Auto) 1.0 (0-4) % Baso % (Auto) 1.0 (0-2) % Lymph # (Auto) 2.0 (1.2-4.9) X10*3/uL [place] # (Auto) 0.4 (0.1-1.2) X10*3/uL Eos # (Auto) 0.1 (0.0-0.4) X10*3/uL Baso # (Auto) 0.1 (0.0-0.2) X10*3/uL Abs Immat Gran (auto) 0.01 (0.00-0.03) X10*3/uL Absolute Neuts (auto) 3.7 (2.0-8.3) x10*3/uL Absolute Nucleated RBC 0.000 (0.0-0.012) X10*3/uL Nucleated RBC % (auto) 0.0 (0.0-0.2) /100WBC Discharge Plan Discharge Clinical Impression: Accidental hypodermic needlestick injury Patient Disposition: Home, Self-Care Instructions: Needle Stick Injuries (ED), PEP (Postexposure Prophylaxis) (ED) Additional Instructions: Due to the high risk needlestick and unknown source, I recommend that you take Truvada and ISENTRESS to prevent HIV infection. The Truvada is once daily for 4 weeks and ISENTRESS is twice daily for 4 weeks You should avoid alcohol while taking these medications It is very important to follow up with work connections as well as your primary doctor Return for new or worsening symptoms Prescriptions: New emtricitabine-tenofovir (TDF) [Truvada] 200-300 mg tablet 1 tab PO DAILY Qty: 28 0RF Isentress 400 mg tablet 400 mg PO BID Qty: 56 0RF No Action ketorolac 10 mg tablet 10 mg PO Q6H PRN (Reason: pain) Qty: 20 0RF Rx Instructions: maximum total duration of 5 days from all oral, intranasal, or parenteral formulations. The patient received an intramuscular dose of medication here in the emergency department methocarbamol 750 mg tablet 1,500 mg PO Q8H PRN (Reason: pain, moderate) Qty: 20 0RF guanfacine 2 mg tablet 2 mg PO BEDTIME dextroamphetamine-amphetamine [Adderall] 20 mg tablet 25 mg PO DAILY Referrals: [facility] [Provider Group] (needle stick) Stand Alone Forms: Work/School Release Print Language: [place]
[2024-07-28 12:56] LABS: MANUAL DIFF FLAG NO
[2024-07-28 12:58] LABS: Basophils Absolute Auto 0.1 X10*3/uL (0.0-0.2); Eosinophils Absolute Auto 0.1 X10*3/uL (0.0-0.4); Hematocrit 46.7 % (42.0-52.0); Hemoglobin 15.7 g/dl (14.0-18.0); Imm Gran Abs Auto 0.01 X10*3/uL (0.00-0.03); Imm Gran Pct Auto 0.2 % (0.0-0.4); Lymphocytes Percent Auto 32.6 % (20-40); Mean Corpuscular HGB Conc 33.6 g/dl (31.0-36.0); Mean Corpuscular Hemoglobin 29.5 pg (27.0-33.0); Mean Corpuscular Volume 87.8 fL (80.0-98.0); Mean Platelet Volume 9.8 fL (9.4-12.4); Monocytes Absolute Auto 0.4 X10*3/uL (0.1-1.2); Monocytes Percent Auto 6.1 % (2-11); Neutrophils Absolute Auto 3.7 x10*3/uL (2.0-8.3); Neutrophils Percent Auto 59.1 % (45-73); Platelet Count 224 X10*3/uL (160-400); Red Blood Count 5.32 X10*6/uL (4.60-5.80); Red Cell Distribution Width 14.6 % (11.0-16.0); White Blood Count 6.2 X10*3/uL (4.8-10.8)
[2024-07-28] MEDS: Post Exposure Medication Kit 1 KIT PO (13:06)
[2024-07-28] MEDS: Diphth,Pertus(ACell),Tet Adult 0.5 ML SYRINGE IM (13:08)
[2024-07-28 13:12] LABS: Alanine Aminotransferase 36 U/L (0-40); Albumin Level 4.3 g/dL (3.5-5.0); Alkaline Phosphatase 91 U/L (39-117); Anion Gap 11 (12-20); Aspartate Amino Transferase 27 U/L (5-37); Bilirubin Total 0.6 mg/dL (0.0-1.0); Blood Urea Nitrogen 26 mg/dL (9-16); Calcium 9.5 mg/dL (8.4-10.2); Carbon Dioxide 28 mmol/L (22-29); Chloride 109 mmol/L (96-108); Creatinine Clr Calc Pharmacy 142.1; Estimated Glomerular Filt Rate > 60; Glucose Random 96 mg/dL (60-115); Potassium 4.3 mmol/L (3.3-5.1); Sodium 144 mmol/L (135-145); Total Protein 6.9 g/dL (6.5-8.0)
[2024-07-28 13:13] VITALS: BP 117/78; PULSE 93; RESP 16; TEMP 36.4; O2SAT 97
--- OUTSIDE RECORDS SUMMARY | 2024-07-28 13:16 | XMS_ITS | Clinical Summary ---
Author Organization [facility] Address [address] [place] [address] Phone Care Team Providers Care Test Manager Name Role Phone Unavailable Primary Care Provider [...] of 2 - 13+ 2-dose series) 2001 DTaP,Tdap,and Td Vaccines (7 - Tdap) 10/21/2009 10/22/1999, 11/13/1998, 09/12/1998, Additional history exists Influenza Vaccines (#1) 2023 COVID-19 Vaccine ( season) 2023 HIB Vaccines Completed 01/13/1990 IPV [...]
--- OUTSIDE RECORDS SUMMARY | 2024-07-28 13:16 | XMS_ITS | Encounter Summary ---
Author Organization [facility] Address [address] [place] [address] Phone Care Team Providers Care Registered Nurse Cardiac Name Role Phone Tejas Turner MD Primary Care Provider Bo haq Encounter Details Date Type Department Care Team (Late st Contact Info) Description 10/30/2016 Conversion Encounter [facility] [place] [address] [place] [address] Social History Tobacco Use Types Packs/Day Years [...] on filedocumented in this encounter Care Teams Registered Nurse Cardiac Relationship Specialty Start Date End Date Tejas Turner MD PCP - General 10/24/16 05/28/22 documented as of this encounter
[2024-07-28 13:34] LABS: HBS Num1 5.29 mIU/mL (0-7.99); HBc Num1 0.09 S/CO (0.00-0.79); HBsAGNum1 0.35 S/CO (0.00-0.99); HIV AB/AG Nonreactive (Nonreactive); Hepatitis B Core Antibody Nonreactive (Nonreactive); Hepatitis B Surface Antigen Negative (Negative); ~HepC Num1 0.07 S/CO (0.00-0.79); ~Hepatitis B Surface Antibody NONREACTIVE (Nonreactive); ~Hepatitis C Antibody Nonreactive (Nonreactive)
== END 2024-07-28 13:14 | disposition home or self-care (01) ==
PROVIDERS: Physician Assistant; Emergency Provider Emergency Medicine Emergency Medical Services; PCP Internal Medicine
DX: S61.031A Puncture wound without foreign body of right thumb without damage to nail, initial encounter (principal); W46.0XXA Contact with hypodermic needle, initial encounter; Y93.89 Activity, other specified; Y92.9 Unspecified place or not applicable; Y99.0 Civilian activity done for income or pay; Z23 Encounter for immunization
CPT/HCPCS: 36415; 80053; 85025; 86704; 86706; 86803; 87340; 87389; 90715; 99282; 99283

== ENCOUNTER 2024-08-31 15:08 | Outpatient (AMB) | payer OTHER, SELFPAY ==
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
[2024-08-31 15:16] VITALS: BP 105/56; PULSE 80; RESP 18; O2SAT 100; BMI 27.4
== END 2024-08-31 15:33 | disposition home or self-care (01) ==
LOC: HO.PMC 15:09
PROVIDERS: PCP Internal Medicine; Visit Provider Anesthesiology
DX: M47.816 Spondylosis without myelopathy or radiculopathy, lumbar region (principal); G89.4 Chronic pain syndrome
CPT/HCPCS: 99214

== ENCOUNTER 2024-10-06 11:06 | Outpatient (RCR) | payer OTHER, SELFPAY ==
--- NOTE | 2024-11-22 08:58 | MHC.PT.DC ---
[facility] [place] Office [place] Office [place] Office [address] Kev Whitfield [address] [phone] F: [phone] F: [phone] F: [phone] F: [phone] Physical Therapy Discharge Report Diagnosis: LOW BACK PAIN (KP) Date of Surgery: Date of Evaluation: 08/29/24 Date of Discharge: 10/23/24 Treatments to Date: 8 Cancellations to Date: 0 No Shows to Date: 0 Discharge Status: Improved Function Independent with HEP Discharge Summary: DEMOS DECREASING FREQUENCY AND INTENSITY OF PAIN. ROM IN LUMBAR SPINE HAS INCREASED WITH BOTH EXT AND ROTATION. MMT REVEALS STRENGTH OF HIP EXT, ABD AND KNEE FLEX HAVE IMPROVED. HE CONTS TO ENDORSE MID BACK AND SCAPULAR SYMPTOMS. WAS TO RETURN TO PAIN MANAGEMENT BUT DID NOT CONTACT US TO SCHEDULE FURTHER VISITS. NO FORMAL REASSESSMENT PERFORMED Electronically signed by: ILEANA MROAN PT DPT Please sign and return to therapist. Thank you for your referral.
== END 2024-11-22 08:57 | disposition home or self-care (01) ==
LOC: HO.PT 11:06
PROVIDERS: PCP Internal Medicine; Visit Provider Internal Medicine
DX: M54.50 Low back pain, unspecified (principal); Z87.828 Personal history of other (healed) physical injury and trauma
CPT/HCPCS: 97014; 97110; 97140; 97161; 97530

== ENCOUNTER 2024-11-12 17:43 | Emergency (ER) | payer OTHER, SELFPAY ==
--- OUTSIDE RECORDS SUMMARY | 2023-11-18 05:30 | XMS_ITS | Encounter Summary ---
Author Name [facility] Organization [facility] Address [address] [place] [id number] Care Team Providers Care Cloud Systems Administrator Name Role Phone ARTURO COCHRAN Primary Care Provide r Unavailable Insurance Providers: All historical and current Section Date Range: From patient's date of to the date document was created. This section includes the names of all active insurance providers for the patient. Insurance Provider Type of Coverage Plan Name Start of Policy Coverage End of Policy Coverage Group Number Member ID Insurance Provider's Telephone Number Policy Gunn's Name Patient's Relationship to Policy Gunn [facility] MEDICA[facility] Mar 16, 2024 01 [id number] RA ROBLES ADAMSON PATIENT Selected Encounter This section includes the information on record at [place] for the Encounter. Date/Time Encounter Type Encounter Description Reason Pro vider Source Nov 18, 2023 09:30 AM Outpatient Encounter PRIMARY CARE/MEDICINE IHE Encounter Template Text not used by [place] Plan of Treatment: Future Appointments (+ 6 months) and Future Tests (+/- 45 days) The Plan of Treatment section includes future care activities for the patient from all [place] treatmentfacilities. This section includes future appointments and future orders which are active, pending or scheduled. Future Appointments This section includes appointments that were scheduled to occur 6 months from the date of the Encounter, up to a maximum of 20 appointments. The data comes from all [place] treatment facilities. Appointment Date/Time Appointment Type Appointme nt Facility Name Dec 03, 2023 07:00 PM AM[facility]ULAT[facility] Dec 04, 2023 08:45 AM [facility] Dec 04, 2023 09:15 AM [facility] Dec 22, 2023 08:00 AM [facility] [place] [facility] Dec 22, 2023 09:00 AM [facility] [place] [facility] Jan 01, 2024 02:30 PM AM[facility]ULATORY [facility] [place] [facility] Feb 01, 2024 09:30 AM AM[facility]ULATORY [facility] [place] [facility] Feb 04, 2024 02:30 PM AMBULATORY - REHAB MEDICIN [facility] [place] [facility] Mar 01, 2024 11:30 AM AM[facility]ORY [facility] [place] [facility] Mar 03, 2024 10:00 AM AMBULATORY - PS[facility]CHIATRY [facility] Mar 23, 2024 09:00 AM AMBULATORY - PS[facility]CHIATRY [facility] Mar 25, 2024 08:30 AM AMBULATORY - REHAB MEDICIN [facility] [place] [facility] Mar 29, 2024 09:30 AM AM[facility]ULATORY [facility] [place] [facility] Apr 01, 2024 08:00 AM AMBULATORY [facility] [place] [facility] Apr 06, 2024 09:00 AM AMBULATORY - PS[facility]CHIATRY [facility] Apr 11, 2024 02:00 PM AMBULATORY - REHAB MEDICIN [facility] [place] [facility] Apr 14, 2024 12:30 PM AMBULATORY - MEDICINE [facility] Apr 26, 2024 09:30 AM AM[facility]UL[facility] [place] [facility] Social History: Smoking Status (Most current) and Tobacco Use (All prior to encounter date) This section includes the most current, and the historical, smoking and tobacco- related health factors from the [place] facility where the Encounter took place. Current Smoking Status This section includes the most current smoking, or tobacco-related health factor, from the [place] facility where the Encounter took place. Date/Time Current Smoking Status Karan camara Jun 11, 2023 10:00 AM VA-TOBACCO DOESNT USE WI 30 MIN [facility] Tobacco Use History This section includes a history of the smoking, or tobacco-related health factors, that were collected on or before the date of the Encounter. The data comes from the [place] facility where the Encounter took place. Date/Time Smoking Status/Tobacco Use Comment F acility Jun 11, 2023 10:00 AM VA-TOBACCO USE 1 TO < 5 YEARS [facility] Jun 11, 2023 10:00 AM VA-TOBACCO USE ADVICE [place] Jun 11, 2023 10:00 AM VA-TOBACCO USE BOBTAILER NO [place] Jun 11, 2023 10:00 AM VA-TOBACCO USE MED NO [place] Jun 11, 2023 10:00 AM VA-TOBACCO USER SOME DAYS [place] Jun 10, 2023 11:00 AM VA-TOBACCO DOESNT USE WI 30 MIN WAKEUP [place] Jun 10, 2023 11:00 AM VA-TOBACCO USE 1 TO < 5 YEARS [place] Jun 10, 2023 11:00 AM VA-TOBACCO USE ADVICE [place] Jun 10, 2023 11:00 AM VA-TOBACCO USE BOBTAILER NO [place] Jun 10, 2023 11:00 AM VA-TOBACCO USE MED NO [place] Jun 10, 2023 11:00 AM VA-TOBACCO USER EVERY DAY [place] Jul 11, 2020 12:00 PM VA-TOBACCO NEVER USED [place] Sep 08, 2018 12:40 PM VA-TOBACCO NEVER USED [place] Encounter Notes: All associated encounter notes This section contains the clinical notes associated to the Encounter. Date/Time Encounter Note(s) Provider Source Nov 12, 2023 10:31 AM LETTERS: LOCAL TITLE: PATIENT LETTER (T) STANDARD TITLE: LETTERS DATE OF NOTE: NOV 12, 2023@10:31 ENTRY DATE: NOV 12, 2023@10:31:49 AUTHOR: DENNY BERNARDO EXP COSIGNER: URGENCY: STATUS: COMPLETED DEPARTMENT OF [facility] Toll Free Number Primary Care Telephone Assistance can be reached at extension [phone] [place] [facility] scheduling can be reached at extension [phone] [place] [facility] scheduling can be reached at ext [phone] SAMIA ADAMSON JR [address] [place] [address], [phone] Date: 11/12/2023 Dear : JUAN DIEGO Thank you for choosing [facility] as your primary choice for health care. As a partner in your health care, we are attempting to contact you because we have been unsuccessful in reaching you by phone. WE ARE ATTEMPTING TO REACH YOU TO RESCHEDULE YOUR VIDEO APPOINTMENT THAT WAS CANCELLED BY THE CLINIC FOR 11/18/23. We want to assure you that we are doing everything possible to schedule veterans for their appointments. Please call us at [phone] to speak with a staff member who can assist you with RESCHEDULING your appointment. Thank you for your service and we look forward to hearing from you soon. Sincerely; [facility] staff Primary Care Provider : ARTURO COCHRAN M.D. [address] [place] [address] [phone] Sincerely, Your Primary Care Team [facility] [address] [place] [address] [place] [address] [phone] [place] [facility] [address] [place] [address] [place] [address] [phone] [facility] [address] [facility] [place] [address] [place] [address] [phone] DENNY BERNARDO Nov 12, 2023 10:29 AM ADMINISTRATIVE NOT E: LOCAL TITLE: ADMINISTRATIVE NOTE STANDARD TITLE: ADMINISTRATIVE NOTE DATE OF NOTE: NOV 12, 2023@10:29 ENTRY DATE: NOV 12, 2023@10:29:42 AUTHOR: DENNY BERNARDO EXP COSIGNER: URGENCY: STATUS: COMPLETED [facility] unable to reach the [place]. Left message on voicemail to contact PC to reschedule [facility] appointment that was cancelled by the clinic on 11/18/23. Letter sent to the . /tavares/ DENNY ORTEGA Signed: 11/12/2023 10:31 DENNY BERNARDO
--- OUTSIDE RECORDS SUMMARY | 2024-03-23 08:30 | XMS_ITS | Encounter Summary ---
Author Name [facility] [place] [facility] [place] Address [address] [place] [id number] Care Team Providers Care Certified Medical Technician Name Role Phone ARTURO COCHRAN Primary Care [...] Gunn's Name Patient's Relationship to Policy Gunn [facility] MEDICA[facility] Mar 16, 2024 01 [id number] RA ROBLES ADAMSON PATIENT Selected Encounter This section includes the information on record at [place] for the Encounter. Date/Time Encounter Type Encounter Description Reason Pro vider Source Mar 23, 2024 12:30 PM Outpatient Encounter PRIMARY CARE/MEDICINE E Encounter Template Text not used by [place] Plan of Treatment: Future Appointments (+ 6 months) and Future Tests (+/- 45 days) The Plan of Treatment section includes future care activities for the patient from all [place] treatmentfacilities. This section includes future appointments and future orders which are active, pending or scheduled. Future Appointments This section includes appointments that were scheduled to occur 6 months from the date of the Encounter, up to a maximum of 20 appointments. The data comes from all [place] treatment facilities. Appointment Date/Time Appointment Type Appointme nt Facility Name Mar 25, 2024 08:30 AM [facility]UL[facility] [place] [facility] Mar 29, 2024 09:30 AM [facility]ULAT[facility] [place] [facility] Apr 01, 2024 08:00 AM [facility]ULATORY [facility] [place] [facility] Apr 06, 2024 09:00 AM AMBULATORY - PSYCHIATRY [facility] Apr 11, 2024 02:00 PM AMBULATORY - [facility] MEDICIN [facility] [place] [facility] Apr 14, 2024 12:30 PM AM[facility]ULATORY - MEDICINE [facility] Apr 26, 2024 09:30 AM AM[facility]UL[facility]RY [facility] [place] [facility] Jun 14, 2024 09:00 AM AM[facility]ULATORY - MEDICINE [facility] [place] [facility] Aug 22, 2024 12:00 PM AMBULATORY [facility] PS[facility]RY [facility] [place] [facility] Aug 22, 2024 12:00 PM AM[facility]UL[facility]ORY - [facility]RY [facility] Active, Pending, and Scheduled Orders This section includes a listing of several types of active, pending, and scheduled orders, including clinic medications orders, diagnostic test orders, procedure orders and consult orders; where the start date of the order is 45 days before the date of the Encounter or 45 days after the date of theEncounter. The data comes from all [place] treatment facilities. Test Date/Time Test Type Test Details Facility Name Apr 05, 2024 02:35 PM Consult Order [facility] Cons Emergency Room [facility] Lab Results: +/- 30 days of the encounter This section includes the Chemistry and Hematology Lab Results on record with [place] for the patient. Radiology Reports and Pathology Reports are provided separately, in subsequent sections. Lab Results This section contains the Chemistry/Hematology Results that were resulted 30 days before or 30 daysafter the date of the Encounter. Date/Time Source Result Type Result - Unit Interpretation Reference Range Specimen Type Comment Mar 22, 2024 10:36 AM [facility] HEMOGLOBIN A1C PANEL BLOOD Specimen T ype: BLOOD Comment: Values obtained from A1C measurements can vary. For atypical A1C assays, a reported value of 7.0 could actually be between 6.72 and 7.28 if measured by a reference method. A reported value of 9.0 could actually be between 8.73 and 9.27. Ref: http://www.ngsp .org/CAPdata.as p Ordering Provider: ARTURO MARTINEZ Report Released Date/Time: Mar 17, 2024 09:34 AM Reporting Lab: [address] [address] Performing Lab: [address] [address] HEMOGLOBIN A1C 5.8 H 4.0-5.6 Mar 22, 2024 10:36 AM [facility] TSH SERUM Sp ecimen Type: SERUM No comment entered. Ordering Provider: ARTURO COCHRAN Report Released Date/Time: Mar 17, 2024 09:34 AM Reporting Lab: [address] [address] Performing Lab: [address] [address] TSH 1.45 u[IU]/mL 0.35-5.00 Mar 22, 2024 10:36 AM [facility] BASIC METABOLIC PANEL (fasting) SERUM Specimen Type: SERUM No comment entered. Ordering Provider: ARTURO COCHRAN Report Released Date/Time: Mar 17, 2024 09:34 AM Reporting Lab: [address] [address] Performing Lab: [address] [address] UREA NITROGEN 22 mg/dL 7-25 GLUCOSE 105 mg/dL H 65-100 SODIUM 139 mmol/L 135-145 POTASSIUM 4.0 mmol/L 3.5-5.0 CHLORIDE 104 mmol/L 100-110 CO2 27 meq/L 20-30 CREATININE, Serum 0.78 mg/dL 0.50-1.40 eGFR(CKD-EPI 2020) >90 mL/min >60 Mar 22, 2024 10:36 AM [facility] LIPID PANEL FASTING SERUM Specimen Ty pe: SERUM No comment entered. Ordering Provider: ARTURO COCHRAN Report Released Date/Time: Mar 17, 2024 09:34 AM Reporting Lab: [address] [address] Performing Lab: [address] [address] CHOLESTEROL 146 mg/dL TRIGLYCERIDE 59 mg/dL 0-150 LDL calculated 99 mg/dL 0-129 CHOL/HDL 4.2 HDL CHOLESTEROL 35 mg/dL L 40-60 Mar 22, 2024 10:36 AM [facility] LIVER FUNCTION SERUM Specimen Type: S BEAU No comment entered. Ordering Provider: ARTURO COCHRAN Report Released Date/Time: Mar 17, 2024 09:34 AM Reporting Lab: [address] [address] Performing Lab: [address] [address] PROTEIN,TOTAL 7.2 g/dL 6.0-8.3 ALBUMIN 3.9 g/dL 3.5-5.0 ALKALINE PHOSPHATASE 110 U/L 40-150 AST 30 U/L 5-34 ALT 43 U/L BILIRUBIN, TOTAL 0.5 mg/dL 0.2-1.2 Mar 22, 2024 10:36 AM [facility] CBC AND DIFF (AUTO) BLOOD Specimen Ty pe: BLOOD No comment entered. Ordering Provider: ARTURO COCHRAN Report Released Date/Time: Mar 17, 2024 09:34 AM Reporting Lab: [address] [address] Performing Lab: [address] [address] WBC 7.35 10*3/uL 4.50-11.00 RBC 5.67 10*6/uL H 4.23-5.66 HGB 16.2 g/dL 12.8-17 HCT 48.8 39.2-50.4 MCV 86.1 fL 82-99 MCHC 33.2 g/dL 30.8-35.1 PLT 262 10*3/uL 140-360 RDW-CV 14.1 12.0-16.0 MONO, ABS 0.44 10*3/uL 0.30-1.10 MCH 28.6 pg 26.2-32.6 NEUT % 59.7 43.7-75.8 LYMPH % 31.7 14.0-42.3 MONO % 6.0 5.1-13.7 EOS % 1.8 0.4-6.8 BASO % 0.5 0.1-2.0 NEUT, ABS 4.39 10*3/uL 2.20-7.60 LYMPH, ABS 2.33 10*3/uL 1.00-3.20 EOS, ABS 0.13 10*3/uL 0.03-0.44 BASO, ABS 0.04 10*3/uL 0.01-0.13 IMMATURE GRAN % 0.3 0.0-0.7 IMMATURE GRAN, ABS 0.02 10*3/uL 0.00-0.0 6 NRBC % 0.0 0.0-0.0 NRBC, ABS 0.00 10*3/uL 0.00-0.00 Social History: Smoking Status (Most current) and Tobacco Use (All prior to encounter date) This section includes the most current, and the historical, smoking and tobacco- related health factors from the [place] facility where the Encounter took place. Current Smoking Status This section includes the most current smoking, or tobacco-related health factor, from the [place] facility where the Encounter took place. Date/Time Current Smoking Status Comment Facil [facility] Jun 11, 2023 10:00 AM VA-TOBACCO DOESNT USE WI 30 MIN WAKEUP [facility] Tobacco Use History This section includes a history of the smoking, or tobacco-related health factors, that were collected on or before the date of the Encounter. The data comes from the [place] facility where the Encounter took place. 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 NO [facility] Jun 11, 2023 10:00 AM VA-TOBACCO USE MED NO [facility] Jun 11, 2023 10:00 AM VA-TOBACCO USER SOME DAYS [facility] Jun 10, 2023 11:00 AM VA-TOBACCO DOESNT USE WI 30 MIN WAKEUP [facility] Jun 10, 2023 11:00 AM VA-TOBACCO USE 1 TO < 5 YEARS [facility] 27, 2024 11:00 AM VA-TOBACCO USE ADVICE [facility] Jun 10, 2023 11:00 AM VA-TOBACCO USE DATA ACQUISITION TECHNICIAN NO [facility] Jun 10, 2023 11:00 AM VA-TOBACCO USE MED NO [facility] Jun 10, 2023 11:00 AM VA-TOBACCO USER EVERY DAY [facility] Jul 11, 2020 12:00 PM VA-TOBACCO NEVER USED [facility] Sep 08, 2018 12:40 PM VA-TOBACCO NEVER USED [facility] Encounter Notes: All associated encounter notes This section contains the clinical notes associated to the Encounter. Date/Time Encounter Note(s) Provider Source Mar 17, 2024 01:49 PM ADMINISTRATIVE NOT E: LOCAL TITLE: ADMINISTRATIVE NOTE STANDARD TITLE: ADMINISTRATIVE NOTE DATE OF NOTE: MAR 17, 2024@13:49 ENTRY DATE: MAR 17, 2024@13:49:33 AUTHOR: DENNY BERNARDO EXP COSIGNER: URGENCY: STATUS: COMPLETED [facility] [address] [place] [phone] * SAMIA ADAMSON [address] [place] [id number] Date: MAR 17, 2024 re: This is a reminder of your upcoming PCP appt with ARTURO COCHRAN. Appointment Date: Mar@12:30 Appointment Type: [facility] video connect (X)Fasting blood work NON fasting blood work LEFT MESSAGE ON VOICEMAIL TO CONFIRM VVC APPT AND LABWORK Sincerely, Office Staff for: ARTURO COCHRAN Primary Care Provider [facility] [address] [place] [id number] T [phone] F [phone] Upcoming Appointments: 03/23/2024 09:00 SPOPC/MHC/SOCIAL WORK INT 03/23/2024 12:30 CWM/SO/VVC/PACT 5 03/25/2024 08:30 CWM NO TBI SPEECH 03/29/2024 09:30 CWM/SO/VVC/MHC/PSYTR 1 APPOINTMENT [facility] (SPOPC OR SO = [place], [facility]) (GOPC OR GO = [place], [facility]) (NHM or NO = [facility]) (VVC - Video Call) (Tel-X Telephone Visit) (TH - Telehealth) /tavares/ DENNY ORTEGA Signed: 03/17/2024 13:50 DENNY BERNARDO
--- OUTSIDE RECORDS SUMMARY | 2024-04-06 05:00 | XMS_ITS | Encounter Summary ---
Author Name [facility] [place] Address [address] [place] [id number] Care Team Providers Care Operations Inspector Name Role Phone ARTURO COCHRAN Primary Care [...] Gunn's Name Patient's Relationship to Policy Gunn [facility] Mar 16, 2024 01 [id number] [id number] RA ROBLES ADAMSON PATIENT Selected Encounter This section includes the information on record at [place] for the Encounter. Date/Time Encounter Type Encounter Description Reason Pro vider Source Apr 06, 2024 09:00 AM Outpatient Encounter [facility] Encounter Template Text not used by [place] Plan of Treatment: Future Appointments (+ 6 months) and Future Tests (+/- 45 days) The Plan of Treatment section includes future care activities for the patient from all [place] treatmentfacilities. This section includes future appointments and future orders which are active, pending or scheduled. Future Appointments This section includes appointments that were scheduled to occur 6 months from the date of the Encounter, up to a maximum of 20 appointments. The data comes from all [place] treatment facilities. Appointment Date/Time Appointment Type Appointme nt Facility Name Apr 11, 2024 02:00 PM AMBULATORY [place] [place] [facility] [place] [facility] Apr 14, 2024 12:30 PM AMBULATORY - MEDICINE [place] [place] Apr 26, 2024 09:30 AM AMBULATORY - [place]IATRY [facility] [place] [facility] Jun 14, 2024 09:00 AM [facility] Aug 22, 2024 12:00 PM AM[facility] Aug 22, 2024 12:00 PM AMBULATORY - [place]RY [place] [facility] Active, Pending, and Scheduled Orders This section includes a listing of several types of active, pending, and scheduled orders, including clinic medications orders, diagnostic test orders, procedure orders and consult orders; where the start date of the order is 45 days before the date of the Encounter or 45 days after the date of theEncounter. The data comes from all [place] treatment facilities. Test Date/Time Test Type Test Details Facility Name Apr 05, 2024 02:35 PM Consult Order [facility] Cons Christian Counselor's Choice [facility] Lab Results: +/- 30 days of the encounter This section includes the Chemistry and Hematology Lab Results on record with [place] for the patient. Radiology Reports and Pathology Reports are provided separately, in subsequent sections. Lab Results This section contains the Chemistry/Hematology Results that were resulted 30 days before or 30 daysafter the date of the Encounter. Date/Time Source Result Type Result - Unit Interpretation Reference Range Specimen Type Comment Mar 22, 2024 10:36 AM [facility] HEMOGLOBIN A1C PANEL BLOOD Specimen T ype: [...] Mar 17, 2024 09:34 AM Reporting Lab: [address] [address] Performing Lab: [address] [place] [address] HEMOGLOBIN A1C 5.8 H 4.0-5.6 Mar 22, 2024 10:36 AM [facility] TSH SERUM Sp ecimen Type: SERUM No comment entered. Ordering Provider: ARTURO COCHRAN Report Released Date/Time: Mar 17, 2024 09:34 AM Reporting Lab: [facility] [address] [address] Performing Lab: [facility] [address] [address] TSH 1.45 u[IU]/mL 0.35-5.00 Mar 22, 2024 10:36 AM [facility] LIPID PANEL FASTING SERUM Specimen Ty pe: SERUM No comment entered. Ordering Provider: ARTURO COCHRAN Report Released Date/Time: Mar 17, 2024 09:34 AM Reporting Lab: [facility] [address] [address] Performing Lab: [facility] [address] [address] CHOLESTEROL 146 mg/dL TRIGLYCERIDE 59 mg/dL 0-150 LDL calculated 99 mg/dL 0-129 CHOL/HDL 4.2 HDL CHOLESTEROL 35 mg/dL L 40-60 Mar 22, 2024 10:36 AM [facility] BASIC METABOLIC PANEL (fasting) SERUM Specimen Type: SERUM No comment entered. Ordering Provider: ARTURO COCHRAN Report Released Date/Time: Mar 17, 2024 09:34 AM Reporting Lab: [facility] [address] [address] Performing Lab: [facility] [address] [address] UREA NITROGEN 22 mg/dL 7-25 GLUCOSE 105 mg/dL H 65-100 SODIUM 139 mmol/L 135-145 POTASSIUM 4.0 mmol/L 3.5-5.0 CHLORIDE 104 mmol/L 100-110 CO2 27 meq/L 20-30 CREATININE, Serum 0.78 mg/dL 0.50-1.40 eGFR(CKD-EPI 2020) >90 mL/min >60 Mar 22, 2024 10:36 AM [facility] LIVER FUNCTION SERUM Specimen Type: S BEAU No comment entered. Ordering Provider: ARTURO COCHRAN Report Released Date/Time: Mar 17, 2024 09:34 AM Reporting Lab: [address] [address] Performing Lab: [address] [address] PROTEIN,TOTAL 7.2 g/dL 6.0-8.3 ALBUMIN 3.9 g/dL 3.5-5.0 ALKALINE PHOSPHATASE 110 U/L 40-150 AST 30 U/L 5-34 ALT 43 U/L BILIRUBIN, TOTAL 0.5 mg/dL 0.2-1.2 Mar 22, 2024 10:36 AM [facility] CBC AND DIFF (AUTO) BLOOD Specimen Ty pe: BLOOD No comment entered. Ordering Provider: ARTURO COCHRAN Report Released Date/Time: Mar 17, 2024 09:34 AM Reporting Lab: [address] [address] Performing Lab: [address] [address] WBC 7.35 10*3/uL 4.50-11.00 RBC 5.67 10*6/uL [...] and tobacco- related health factors from the [place] facility where the Encounter took place. Current Smoking Status This section includes the most current smoking, or tobacco-related health factor, from the [place] facility where the Encounter took place. Date/Time Current Smoking Status Comment Facil [facility] Jun 11, 2023 10:00 AM VA-TOBACCO USER SOME DAYS [facility] Tobacco Use History This section includes a history of the smoking, or tobacco-related health factors, that were collected on or before the date of the Encounter. The data comes from the [place] facility where the Encounter took place. Date/Time Smoking Status/Tobacco Use Comment F acility Jun 11, 2023 10:00 AM VA-TOBACCO USE 1 TO < 5 YEARS [facility] Jun 11, 2023 10:00 AM VA-TOBACCO USE ADVICE [facility] Jun 11, 2023 10:00 AM VA-TOBACCO USE CORPORATION PILOT NO [facility] Jun 11, 2023 10:00 AM VA-TOBACCO USE MED NO [facility] Jun 11, 2023 10:00 AM VA-TOBACCO USER SOME DAYS [facility] Jun 10, 2023 11:00 AM VA-TOBACCO DOESNT USE WI 30 MIN WAKEUP [facility] Jun 10, 2023 11:00 AM VA-TOBACCO USE 1 TO < 5 YEARS [facility] Jun 10, 2023 11:00 AM VA-TOBACCO USE ADVICE [facility] Jun 10, 2023 11:00 AM VA-TOBACCO USE CORPORATION PILOT NO [facility] Jun 10, 2023 11:00 AM VA-TOBACCO USE MED NO [facility] Jun 10, 2023 11:00 AM VA-TOBACCO USER EVERY DAY [facility] Jul 11, 2020 12:00 PM VA-TOBACCO NEVER USED [facility] Sep 08, 2018 12:40 PM VA-TOBACCO NEVER USED [facility] Encounter Notes: All associated encounter notes This section contains the clinical notes associated to the Encounter. Date/Time Encounter Note(s) Provider Source Apr 06, 2024 09:25 AM CLERICAL NOTE: LOCAL TITLE: APPOINTMENT NO SHOW STANDARD TITLE: CLERICAL NOTE DATE OF NOTE: APR 06, 2024@09:25 ENTRY DATE: APR 06, 2024@09:25:37 AUTHOR: FRANKY GUTIERREZ COSIGNER: JANICE BUTTS URGENCY: STATUS: COMPLETED Patient Name: SAMIA ADAMSON JR Patient SSN: [id number] Date and time of Appointment No show : 04/06/24 09:00 PATIENT PHONE - PHONE NUMBER [[phone]] - Patient's medical record was reviewed. Follow-up actions were determined and initiated: Please check/complete as applies: [X]Telephoned Directly [ ]Re-scheduled for next available appt [ ]Sent a N0-show letter ( must call for appointment) [ ]Other (Emergent/Overbook, etc.): Additional Comments: was a no show. Called at 9:25 am and left VM asking to call front end developer javascript html css and re-schedule. Future Clinic Visits 04/14/2024 12:30 CWM/SO/VVC/PACT 5 04/26/2024 09:30 CWM/SO/VVC/MHC/PSYTR 1 /tavares/ JUSTYN GUTIERREZ Social Work Service Employee Signed: 04/06/2024 09:26 /tavares/ OPAL COMBS MARINE EQUIPMENT PRESERVATION INSPECTOR Cosigned: 04/06/2024 09:35 JUSTYN GUTIERREZFIELD
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
--- OUTSIDE RECORDS SUMMARY | 2024-10-25 04:00 | XMS_ITS | Encounter Summary ---
Author Name [facility] [place] Address [address] [place] [id number] Care Team Providers Care Assistant Principal Name Role Phone ARTURO COCHRAN Primary Care [...] Gunn's Name Patient's Relationship to Policy Gunn [facility] Mar 16, 2024 01 [id number] RA ROBLES ADAMSON PATIENT Selected Encounter This section includes the information on record at [place] for the Encounter. Date/Time Encounter Type Encounter Description Reason Pro vider Source Oct 25, 2024 08:00 AM Outpatient Encounter AUDIOLOGY IHE Encounter Template Text not used by [place] Plan of Treatment: Future Appointments (+ 6 months) and Future Tests (+/- 45 days) The Plan of Treatment section includes future care activities for the patient from all [place] treatmentfacilities. This section includes future appointments and future orders which are active, pending or scheduled. Future Appointments This section includes appointments that were scheduled to occur 6 months from the date of the Encounter, up to a maximum of 20 appointments. The data comes from all [place] treatment facilities. Appointment Date/Time Appointment Type Appointme nt Facility Name Nov 01, 2024 01:00 PM AMBULATORY [place]ICINE [place] [facility] Nov 17, 2024 09:30 AM AMBULATORY - MEDICINE [facility] Nov 21, 2024 09:30 AM AM[place]ATORY [place] [facility] Nov 21, 2024 09:30 AM AMBULATORY - [facility] Active, Pending, and Scheduled Orders This section includes a listing of several types of active, pending, and scheduled orders, including clinic medications orders, diagnostic test orders, procedure orders and consult orders; where the start date of the order is 45 days before the date of the Encounter or 45 days after the date of theEncounter. The data comes from all [place] treatment facilities. Test Date/Time Test Type Test Details Facility Name Oct 10, 2024 12:00 AM Laboratory - Chemi stry Order HEMOGLOBIN A1C PANEL BLOOD (LAV-BLOOD) [facility] Oct 10, 2024 12:00 AM Laboratory - Chemi stry Order BASIC METABOLIC PANEL (fasting) BLOOD (SST-SERUM) [facility] Nov 09, 2024 12:00 AM Laboratory - Chemi stry Order HEMOGLOBIN A1C PANEL BLOOD (LAV-BLOOD) [facility] Nov 09, 2024 12:00 AM Laboratory - Chemi stry Order BASIC METABOLIC PANEL (fasting) BLOOD (SST-SERUM) [facility] Encounter Notes: All associated encounter notes This section contains the clinical notes associated to the Encounter. Date/Time Encounter Note(s) Provider Source Oct 25, 2024 09:01 AM CLERICAL NOTE: LOCAL TITLE: APPOINTMENT NO SHOW STANDARD TITLE: CLERICAL NOTE DATE OF NOTE: OCT 25, 2024@09:01 ENTRY DATE: OCT 25, 2024@09:01:17 AUTHOR: JARRETT WARNER COSIGNER: URGENCY: STATUS: COMPLETED APPOINTMENT NO SHOW Has ADDENDA Patient Name: SAMAI ADAMSON JR Patient SSN: [id number] Date and time of Appointment No show : 10/25/24 08:00 PATIENT PHONE - [phone] PHONE NUMBER [CELLULAR] - [phone] Patient's medical record was reviewed. Follow-up actions were determined and initiated: Please check/complete as applies: [ ]Telephoned Directly [ ]Re-scheduled for next available appt [X]Sent a N0-show letter ( must call for appointment) [ ]Other (Emergent/Overbook, etc.): Additional Comments: Future Clinic Visits 11/17/2024 09:30 SPR PACT 5 11/21/2024 09:30 CWM V01 [facility] ADM MH /es/ Jarrett Warner, AuD, CCC-A Steaming Machine Operator Signed: 10/25/2024 09:01 Receipt Acknowledged By: 10/25/2024 14:45 /will MORALES DELICATESSEN GOODS STOCK CLERK 10/25/2024 ADDENDUM STATUS: COMPLETED is rescheduled to 11/01/2024 /will MORALES DELICATESSEN GOODS STOCK CLERK Signed: 10/25/2024 14:46 JARRETT WARNER [place] [facility]
[2024-11-12 17:45] VITALS: BP 132/82; PULSE 103; RESP 18; O2SAT 96; BMI 24.4
--- NOTE | 2024-11-12 17:52 | ED_ITS ---
HPI - General Adult General Stated complaint: Bee Sting Related Data Home Medications ?Medication ?Instructions ?Recorded ?Confirmed dextroamphetamine-amphetamine 20 25 mg PO DAILY mg tablet (Adderall) guanfacine 2 mg tablet 2 mg PO BEDTIME 01/29/24 Previous Rx's ?Medication ?Instructions ?Recorded ketorolac 10 mg tablet 10 mg PO Q6H PRN pain #20 ta bs 04/23/24 methocarbamol 750 mg tablet 1,500 mg (2 x 750 mg) PO Q 8H PRN 04/23/24 pain, moderate #20 tabs emtricitabine 200 mg-tenofovir 1 tab PO DAILY #28 tabs 07/28/24 disoproxil fumarate 300 mg tablet (Truvada) raltegravir 400 mg tablet 400 mg PO BID #56 tabs 07/28 (Isentress) Allergies Allergy/AdvReac Type Severity Reaction Status Date / Time No Known Allergies (No Known Allergy Verified 11/12/24 17:51 Allergies*) [facility] Past Medical History Medical History Acute appendicitis Surgical History History of incision and drainage (~05/29/22) History of laparoscopic appendectomy (07/27/21) Social History Social History Household Members: Children Housing: Apartment Alcohol intake: current Patient Tobacco Use Status: Never used Tobacco e-Cigarette/Vaping Use: Never Used Second Hand Smoke Exposure: No Course Course Course Narrative: RME, this is a rapid medical exam performed by Davi Loaiza please refer to primary provider for complete H&P- 34-year-old male presents for evaluation after a bee sting. He has no known allergies but reports being stung about 30 minutes prior to arrival on the left foot/ankle. He now has a diffuse body rash and feels as though his throat is swelling. His airway is patent on exam, no stridor on auscultation. However given the evidence of systemic allergic reaction I ordered EpiPen, Solu-Medrol, Pepcid, and Benadryl and he was immediately brought back to room 13. Discharge Plan Discharge Prescriptions: No Action ketorolac 10 mg tablet 10 mg PO Q6H PRN (Reason: pain) Qty: 20 0RF Rx Instructions: maximum total duration of 5 days from all oral, intranasal, or parenteral formulations. The patient received an intramuscular dose of medication here in the emergency department methocarbamol 750 mg tablet 1,500 mg PO Q8H PRN (Reason: pain, moderate) Qty: 20 0RF emtricitabine-tenofovir (TDF) [Truvada] 200-300 mg tablet 1 tab PO DAILY Qty: 28 0RF Isentress 400 mg tablet 400 mg PO BID Qty: 56 0RF guanfacine 2 mg tablet 2 mg PO BEDTIME dextroamphetamine-amphetamine [Adderall] 20 mg tablet 25 mg PO DAILY Print Language: Malay
--- NOTE | 2024-11-12 18:00 | ED.GENADULT ---
HPI - General Adult General Chief complaint: Allergic Reaction Stated complaint: Bee Sting Time Seen by Provider: 11/12/24 17:52 Source: patient Mode of arrival: ambulatory Limitations: no limitations History of Present Illness ED Provider: Dr. Faith [facility] narrative: This is a 34-year-old male presented hospital today for anaphylaxis. Patient stated that he got some by a bee on the top of his foot. Patient is suddenly again to feel rash on his face and his arms. And some voice changes. Patient took 50 mg p.o. Benadryl prior to arrival. No shortness of breath Related Data Home Medications ?Medication ?Instructions ?Recorded ?Confirmed dextroamphetamine-amphetamine 20 25 mg PO DAILY 01/29/24 mg tablet (Adderall) guanfacine 2 mg tablet 2 mg PO BEDTIME 01/29/24 Previous Rx's ?Medication ?Instructions ?Recorded ketorolac 10 mg tablet 10 mg PO Q6H PRN pain #20 tabs 04/23/24 methocarbamol 750 mg tablet 1,500 mg (2 x 750 mg) PO Q8H PRN 04/23/24 pain, moderate #20 tabs emtricitabine 200 mg-tenofovir 1 tab PO DAILY #28 tabs 07/28/24 disoproxil fumarate 300 mg tablet (Truvada) raltegravir 400 mg tablet 400 mg PO BID #56 tabs 07/28/24 (Isentress) epinephrine 0.3 mg/0.3 mL 0.3 mg (0.3 mL) IM Q10M PRN 11/12/24 injection, auto-injector (EpiPen) anaphylaxis #1 ea Allergies Allergy/AdvReac Type Severity Reaction Status Date / Time No Known Allergies (No Known Allergy Verified 11/12/24 17:51 Allergies*) Review of Systems Review of Systems: Pertinent review of systems as mentioned in HPI. All other system otherwise negative. [facility] Past Medical History [facility] Narrative: Medical history as mentioned in [facility] Medical History Acute appendicitis Surgical History History of incision and drainage (~05/29/22) History of laparoscopic appendectomy (07/27/21) Social History Social History Household Members: Children Housing: Apartment Alcohol intake: current Patient Tobacco Use Status: Never used Tobacco Smoked in Last 30 Days: No e-Cigarette/Vaping Use: Never Used Second Hand Smoke Exposure: No Use of substances other than those prescribed or required for medical reasons: No Advance Directives: No Advance Directives Information Provided: No Physical Exam ED Exam Exam: General: Pleasant, no distress, interacting appropriately Head: Normacephalic, atraumatic ENT: oral mucosa moist, neck supple, no tracheal deviation, some swelling appreciated on patient's face Cardiovascular: regular rate, regular rhythm, no murmurs, rubbing, gallops Respiratory: CTAB, no wheeze, rales, rhonchi Gastrointestinal: Soft, non distended, non tender, non guarding Neurological: Awake and alert, no facial droop noted Skin: Warm and dry, patient does have urticaria bilateral upper extremities and face Psychiatric: Appropriate mood and thoughts Vital Signs: Vital Signs - 24 hr 11/12/24 17:45 11/12/24 18:01 11/12/24 18:05 Temperature 97.8 F Pulse Rate 103 H 85 85 Respiratory Rate 18 16 Blood Pressure 132/82 147/81 H 147/81 H Pulse Oximetry 96 98 Oxygen Delivery Method Room Air Room Air BMI result Body Mass Index 24.4 Medications Administered Discontinued Medications Generic Name Dose Route Start Last Admin Trade Name Freq PRN Reason Stop Dose Admin Epinephrine 0.3 mg 11/12/24 17:48 11/12/24 18:01 Epinephrine 1 Mg/Ml Vial IM 11/12/24 17:49 0.3 mg STAT STA Administration Famotidine 20 mg 11/12/24 17:48 11/12/24 18:02 Famotidine/Pf 20 Mg/2 Ml Vial IVPUSH 11/12/24 17:49 20 mg ONCE ONE Administration Methylprednisolone Sodium Succinate 125 mg 11/12/24 17:48 11/12/24 18:02 Methylprednisolone Sod Succ 125 Mg/2 Ml Vial IVPUSH 11/12/24 17:49 125 mg ONCE ONE Administration Medical Decision Making Medical Decision Making [facility] Narrative: This is a 34-year-old male presented hospital today for possible anaphylaxis reaction after being stung by a bee. Plan to give patient some IM epinephrine, IV Pepcid, patient has a ready taking 50 mg p.o. Benadryl, we will give IV Solu-Medrol as well. We will plan to observe patient closely. Patient is requesting to be discharged at this time. He understands the risk of being discharged early prior to recommended observation .. Through shared decision-making we will plan to discharge patient. Return precautions provided. EpiPen will be sent off the patient Differential Diagnosis Differential Diagnoses: The differential diagnosis associated with the presentation includes Anaphylaxis, allergic reaction Critical Care Time Critical Care Time Critical Care Time: Yes Total Critical Care Time: 40 Attestation: Time is exclusive of separately billable procedures. Time includes: direct patient care, patient reassessment, coordination of patient care, interpretation of data (laboratory data, pulse oximetry, arterial blood gases and chest xrays), review of patient's medical records, medical consultation and documentation of patient care. Procedures excluded from critical care time: central intravenous line placement and electrocardiography. Discharge Plan Discharge Clinical Impression: Anaphylaxis Qualifiers: Encounter type: initial encounter Qualified Code(s): T78.2XXA - Anaphylactic shock, unspecified, initial encounter Patient Disposition: Home, Self-Care Prescriptions: New epinephrine [EpiPen] 0.3 mg/0.3 mL auto-injector 0.3 mg IM Q10M PRN (Reason: anaphylaxis) Qty: 1 0RF Rx Instructions: for 2 doses No Action ketorolac 10 mg tablet 10 mg PO Q6H PRN (Reason: pain) Qty: 20 0RF Rx Instructions: maximum total duration of 5 days from all oral, intranasal, or parenteral formulations. The patient received an intramuscular dose of medication here in the emergency department methocarbamol 750 mg tablet 1,500 mg PO Q8H PRN (Reason: pain, moderate) Qty: 20 0RF emtricitabine-tenofovir (TDF) [Truvada] 200-300 mg tablet 1 tab PO DAILY Qty: 28 0RF Isentress 400 mg tablet 400 mg PO BID Qty: 56 0RF guanfacine 2 mg tablet 2 mg PO BEDTIME dextroamphetamine-amphetamine [Adderall] 20 mg tablet 25 mg PO DAILY Print Language: [place] Islander
[2024-11-12 18:01] VITALS: BP 147/81; PULSE 85
[2024-11-12 18:05] VITALS: BP 147/81; PULSE 85; RESP 16; TEMP 36.6; O2SAT 98
--- NOTE | 2024-11-12 18:07 | PC.NURSE ---
Patient presents to ED after bee sting. Patient experienced an allergic reaction, rash noted on trunk, hoarseness in voice denies SOB. Patient stung in left foot, area red and swollen no stinger noted. Patient denies pain at this time. Patient medicated per provider with epi, pepcid, and solumedrol Patient reports feeling better plan of care on going
--- OUTSIDE RECORDS SUMMARY | 2024-11-12 18:09 | XMS_ITS | Continuity of Care Document ---
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 08166 012 SERGEI DUKE [facility] Audiometry Group Testing 48752 012 SERGEI DUKE Ear mold/insert, not disposable, any type 012 SERGEI DUKE Vaccines Viral Yellow Fever Vaccines Viral Yellow Fever 82186 011 MULUGETA GAMBLE 0.5ML,SQ,LE FT ARM DoD Immunization Administration One Vaccine Immunization Administration One Vaccine 03757 011 MULUGETA GAMBLE DoD Typhoid Vaccine Vi Capsular Polysaccharide, For Intramus Use Typhoid Vaccine Vi Capsular Polysaccharide, For Intramus Use 39846 011 CAMILO SPEAR 0.5ml IM IN LEFT DELTOID BY NELL CLEMENTE DoD Immunization Administration One Vaccine Immunization Administration One Vaccine 41203 011 CAMILO SPEAR [facility] Supervised Injection Intramuscular Supervised Injection Intramuscular 32234 011 MAO FREDRICK [facility] Injection, adrenalin, epinephrine, 0.1 mg 011 CAVANAUGH, [facility] Pulse Oximetry Pulse Oximetry 04374 011 MAO [facility] Injection, methylprednisolone sodium succinate, up to 125 mg 011 [place], [facility] Injection, diphenhydramine HCl, up to 50 mg 011 [place], [facility] Supervised Inj IV Each Addit Sequential Push New Subst Supervised Inj IV Each Addit Sequential Push New Subst 52202 011 CAVANAUGH, [facility] Supervised Injection Intravenous Supervised Injection Intravenous 87325 011 CAVANAUGH [facility] IV Infusion For Hydration Each Additional Hour IV Infusion For Hydration Each Additional Hour 69527 011 CAVANAUGH [facility] Infusion, normal saline solution , 1000 cc 011 [facility] Fecal Analysis - Occult Blood 011 EVER ARZATE [facility] Electrocardiogram Electrocardiogram 08260 07/29 011 KATTY OTERO [facility] Audiometry Group Testing Audiometry Group Testing 05593 011 ANGELES TRUJILLO [facility] Injection, penicillin g benzathine, 100,000 units 011 JOB MALDONADO [facility] Influenza Virus Vaccine Live Intranasal 011 JOB MALDONADO [facility] Meningococcal Polysacch Diphtheria Toxoid Conjugate Vaccine 011 JOB MALDONADO [facility] Vaccines Viral Polio, Inactivated (Salk) Vaccines Viral Polio, Inactivated (Salk) 48733 011 JOB MALDONADO [facility] Influenza Virus Vaccine Pandemic Formulation Influenza Virus Vaccine Pandemic Formulation 20661 011 JOB MALDONADO [facility] Supervised Injection Intramuscular Antibiotic Supervised Injection Intramuscular Antibiotic 08987 011 JOB MALDONADO [facility] Venipuncture Venipuncture 64907 JOB MALDONADO [facility] Tdap Vaccine Tdap Vaccine 77592 JOB MALDONADO [facility] Immunization Administration Each Additional Vaccine JOB MALDONADO [facility] Immunization Admin By Intranasal / Oral Route One Vaccine Immunization Admin By Intranasal / Oral Route One Vaccine 19517 JOB MALDONADO [facility] Skin Test Anergy Tuberculin Intradermal Skin Test Anergy Tuberculin Intradermal 38822 JOB MALDONADO [facility] Visual Function Screening Visual Function Screening 24244 REBEKAH WALLER [facility] Psychiatric Evaluation Comprehensive Examination Psychiatric Evaluation Comprehensive Examination 53523 LO ABERNATHY [facility] Psychiatric Evaluation Comprehensive Examination Psychiatric Evaluation Comprehensive Examination 74187 STAN ROY [facility] THERAPEUTIC, PROPHYLACTIC, OR DIAGNOSTIC INJECTION (SPECIFY SUBSTANCE OR DRUG); SUBCUTANEOUS OR INTRAMUSCULAR [facility] BLOOD,OCCULT,BY PEROXIDASE ACTIV (EG,GUAIAC),QUAL;FECES ,CONSECUTIVE COLLECTED SPECIMENS W SING DETERMIN,FOR COLORECTAL NEOPLAS SCREEN (IE,PAT PROVIDE 3 CARDS/SING TRIPLE CARD FOR CONSECUTIVE COLLECT) [facility] ELECTROCARDIOGRAM, ROUTINE ECG WITH AT LEAST 12 LEADS; WITH INTERPRETATION AND REPORT [facility] AUDIOMETRIC TESTING OF GROUPS [facility] SKIN TEST; TUBERCULOSIS, INTRADERMAL [facility] VIS FUNCT SCREEN,AUTOMAT/SEMI-AU TOMAT BILAT QUANT DETERM VISUAL ACUITY,OCULAR ALIGN,COLOR VISION,PSEUDOISOCHROMA T PLATES,& FIELD VIS (MAY INC ALL/SOME SCRN DETERM FOR CONTRAST SENSITIV,VIS UND GLARE) [facility] SCREENING TEST OF VISUAL ACUITY, QUANTITATIVE, BILATERAL [facility] YELLOW FEVER VACCINE, LIVE, FOR SUBCUTANEOUS USE [facility] TYPHOID VACCINE, CAPSULAR POLYSACCHARIDE (VICPS), FOR INTRAMUSCULAR USE [facility] PSYCHIATRIC DIAGNOSTIC INTERVIEW EXAMINATION [facility] PSYCHIATRIC DIAGNOSTIC INTERVIEW EXAMINATION [facility] PURE TONE AUDIOMETRY (THRESHOLD); AIR ONLY [facility] VIS FUNCT SCREEN,AUTOMAT/SEMI-AU TOMAT BILAT QUANT DETERM VISUAL ACUITY,OCULAR ALIGN,COLOR VISION,PSEUDOISOCHROMA T PLATES,& FIELD VIS (MAY INC ALL/SOME SCRN DETERM FOR CONTRAST SENSITIV,VIS UND GLARE) 012 [facility] EAR MOLD/INSERT, NOT DISPOSABLE, ANY TYPE 012 [facility] CRUTCHES UNDERARM, WOOD, ADJUSTABLE OR FIXED, PAIR, WITH PADS, TIPS AND HANDGRIPS 010 [facility] Social History Combined list of available smoking, tobacco, and other social history from Department of Defense and 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 Social History Type Response Date Comment [facility] e Tobacco smoking status NHIS VA-TOBACCO USER SOME DAYS 05/15 [facility] History of tobacco use VA-TOBACCO USE 1 TO < 5 YEARS 06/11/2023 [facility] History of tobacco use VA-TOBACCO USER EVERY DAY [facility] History of tobacco use VA-TOBACCO NEVER USED 07/11/2020 [facility] History of tobacco use VA-TOBACCO NEVER USED 09/08/2018 [facility] This section is an empty social history section. [facility] Plan of Care List of future care activities from Department of 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 Additional future care activities may be listed in the Assessment and Plan section. Date/Time Care Activity Care Activity Detail Facili ty 11/17/2024 AMBULATORY - MEDICINE [facility] - [facility]
--- OUTSIDE RECORDS SUMMARY | 2024-11-12 18:10 | XMS_ITS | Encounter Summary ---
Author Organization [facility] Address [address] [place] [address] Phone Care Team Providers Care Finisher Tailor Apprentice Name Role Phone Tejas Turner MD Primary Care Provider Bo haq Encounter Details Date Type Department Care Team (Late st Contact Info) Description 10/30/2016 Conversion Encounter [facility] [place] [address] [place] [address] Social History Tobacco Use Types Packs/Day Years [...] on filedocumented in this encounter Care Teams Finisher Tailor Apprentice Relationship Specialty Start Date End Date Tejas Turner MD PCP - General 10/24/16 05/28/22 documented as of this encounter
--- OUTSIDE RECORDS SUMMARY | 2024-11-12 18:10 | XMS_ITS | Clinical Summary ---
Author Organization [facility] Address [address] [place] [address] Phone Care Team Providers Care Air Quality Engineer Name Role Phone Unavailable Primary Care Provider [...] 10/21/2009 10/22/1999, 11/13/1998, 09/12/1998, Additional history exists HPV Vaccines (1 - 3-dose SCDM series) 05/24/2015 COVID-19 Vaccine ( - 2023- season) 2023 Influenza Vaccines (#1) 2024 HIB Vaccines Completed 01/13/1990 IPV Vaccines Completed 11/13/1998, 08/16, 07/13/1998, Additional history exists Hepatitis B Vaccines Completed 10/22/1999, 05/02/1999, 03/21/1999 MMR Vaccines Completed 10/22/1999, 08/13/1989 Hepatitis A Vaccines Aged Out No long [...]
--- NOTE | 2024-11-12 19:02 | PC.NURSE ---
this RN assumed care of this pt @1900, at this time pt laying in hospital stretcher, resting w/ eyes closed and appears to be in no apparent distress
[2024-11-12 20:29] VITALS: BP 127/83; PULSE 84; RESP 16; TEMP 37.2; O2SAT 98
== END 2024-11-12 20:31 | disposition home or self-care (01) ==
PROVIDERS: Emergency Provider Student in an Organized Health Care Education/Training Program; PCP Internal Medicine
DX: T78.2XXA Anaphylactic shock, unspecified, initial encounter (principal); Y92.9 Unspecified place or not applicable; R21 Rash and other nonspecific skin eruption; R22.1 Localized swelling, mass and lump, neck; Z79.899 Other long term (current) drug therapy
CPT/HCPCS: 96372; 99284; J0165; J1308; J2919

== ENCOUNTER 2025-01-26 13:08 | Outpatient (AMB) | payer OTHER, SELFPAY ==
--- NOTE | 2025-01-26 13:15 | MHC.OFFVIS ---
Vital Signs 01/26/25 13:18 Height 5 ft 10 in Weight 200 lb BMI 28.7 BP 135/85 Blood Pressure Location Rt brachial Position Sitting Respiration 16 Pulse 88 Pulse Source Pulse Oximeter Pulse Oximetry (%) 95 Oxygen Delivery Method Room Air Intake Visit Reasons: Follow Up Machine Bunch Maker Required: No Accompanied by: Self / Same As Patient Allergies No Known Allergies (No Known Allergies*) Allergy (Verified 01/26/25 13:17) HPI Comments Details: Damien with complains on pain in the lower back aggravated by flexing forward and flexing backwards. He reports that prolonged sitting aggravates his pain as well. He reports numbness in anterior thighs and stiffness in the lower back with sitting and flexing forward and flexing backwards. He denies radiation of the pain into bilateral lower extremities. His pain is mostly axial and very likely facetogenic in nature. his pain today is 8 to 9/10. He tried NSAIDs with no effect. He tried Tylenol with no effect. He had muscle relaxants with no effect. He had physical therapy 12 sessions. He continues home exercise program. He reports very minimal pain alleviation for short period of time after physical therapy session or home exercise. he exhausted conservative measures. He had an MRI of the lumbar spine which demonstrated spondylotic changes and some Modic type changes in mid lumbar vertebra. His pain most likely is multifactorial. Significant pain syndrome most likely from spondylosis of lumbar spine, although vertebra genic low back pain can not be excluded considering his complains on pain with lying down and prolonged sitting. I will schedule this patient for diagnostic medial branch block L3, L4, dorsal ramus L5 bilateral. I will see how this procedure will help his pain. With negative results of the diagnostic medial branch blocks radiofrequency ablation of basivertebral nerves probably will be next step in helping the pain of this patient. [facility] Medical History Acute appendicitis Surgical History History of incision and drainage (~05/29/22) History of laparoscopic appendectomy (07/27/21) Social History Household Members: Children Housing: Apartment Alcohol intake: current Patient Tobacco Use Status: Never used Tobacco e-Cigarette/Vaping Use: Never Used Second Hand Smoke Exposure: No Review of Systems Const All systems reviewed & are unremarkable except as noted in HPI and below ENT Reports Normal hearing present Neuro Reports Normal hearing present, Denies Abnormal speech present and Denies Sensory deficit (Neuro) Physical Exam Const General: no acute distress, well developed, alert, awake and Physically active Orientation/consciousness: patient oriented x3 Eyes General: appearance normal, both eyes and all related structures Pupils: Equal, round and reactive pupils present EOM: EOMs intact bilaterally Neck Neck: Yes full ROM Chest Chest palpation & inspection: normal inspection of the chest Resp Effort & Inspection: normal respiratory effort, able to speak in complete sentences, normal respiratory pattern, no audible wheezes and no cough Cardio Jugular venous distension: no JVD GI Inspection: Yes normal to inspection Back/Spine/Pelvis Other: Able to walk on bilateral tiptoes in bilateral heels without difficulty. Flexing forward aggravates his pain. Flexing backwards aggravates his pain . Prolonged sitting aggravates his pain. Lying down for long time aggravate his pain. Tenderness on palpation on paraspinal spinal region of the lower lumbar spine. Loading test is positive bilaterally. SLR is negative bilaterally. Lassegue test is negative bilaterally. Aron test is negative bilaterally. Neuro General: patient oriented x3 and gait normal Cranial nerves: Yes CN's II-XII intact bilaterally, Yes Equal, round and reactive pupils present, Yes Normal hearing present and Yes Ability to bilaterally elevate shoulders present Speech: No Abnormal speech present Gait exam (Neuro): Normal gait present Motor exam (neuro): 5/5 motor strength present throughout Sensory Exam: No Sensory deficit (Neuro) Extrem General: No pedal edema Psych Speech and movement: Normal speech and movement present Affect: normal affect Attitude: cooperative Thought process: Normal thought process present Thought content: Normal thought content present Insight: Good insight present (Psych) Judgement: Good judgement present (Psych) Results Reviewed Results Reviewed: MR LUMBAR SPINE WITHOUT CONTRAST CLINICAL INFORMATION: Low back pain. Bilateral leg pain. COMPARISON: X-ray of the lumbar spine dated 01/09/2023. TECHNIQUE: Multiplanar, multisequence imaging was obtained. FINDINGS: VERTEBRAL BODIES AND PARASPINAL STRUCTURES: The marrow signal is within normal limits. Endplate Schmorl's nodes are present at multiple levels. Disc heights are preserved with normal intradiscal signal. There is mild congenital narrowing of the spinal canal with foreshortening of the pedicles. No marrow or soft tissue edema is seen. No abnormal curvature of the lumbar spine is evident. There are no compression fractures. The paraspinal soft tissues are normal. The imaged bony pelvis is unremarkable. CONUS MEDULLARIS AND CAUDA EQUINE: The distal cord, conus tip, and cauda equina nerve roots are normal. SPINAL LEVELS: L1-L2: No significant disc pathology, central canal stenosis, or foraminal narrowing. L2-L3: Minimal annular bulge. No central canal stenosis or foraminal narrowing. L3-L4: Very mild disc bulge without central canal stenosis. Bulging disc mildly encroaches upon the neural foramina, more so on the right side. L4-L5: Small posterior annular fissure in the midline and mild disc bulge. No central canal stenosis. Xael-tl-pzgybcqc foraminal narrowing due to encroachment from bulging disc. L5-S1: Minimal annular bulge. No central canal stenosis. Mild right and wctu-cv-hztietrr left foraminal narrowing. 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 Mild spondylitic changes. No focal disc protrusion or significant central canal stenosis. Ozik-aw-kfpavlhu foraminal narrowing at the L4-L5 and L5-S1 levels. Assessment & Plan Assessment & Plan (1) Spondylosis of lumbar region without myelopathy or radiculopathy: Code(s): M47.816 - Spondylosis without myelopathy or radiculopathy, lumbar region Category: Medical Plan: 1 (2) Chronic pain syndrome: Code(s): G89.4 - Chronic pain syndrome Category: Medical Plan: I will schedule this patient for diagnostic medial branch block L3, L4, dorsal ramus L5. I will see this patient in the office 2 days after the procedure. The decision will be made whether or not this diagnostic medial branch block help the patient for significant period of time. (3) Spondylosis of lumbar region without myelopathy or radiculopathy: Code(s): M47.816 - Spondylosis without myelopathy or radiculopathy, lumbar region Category: Medical Plan: If the medial branch block as above will not help this patient's pain I will consider to request radiology to review his MRI and consider Modic type changes evaluation on the MRI.His pain is mostly axial and very likely facetogenic in nature however vertebra genic low back pain can not be 100% excluded. Diagnostic medial branch block will be a west element in further management of this patient. Coding Level of Care Code Est Pt Level 3 (92570) Diagnoses Spondylosis of lumbar region without myelopathy or radiculopathy M47.816 Chronic pain syndrome G89.4
[2025-01-26 13:18] VITALS: BP 135/85; PULSE 88; RESP 16; O2SAT 95; BMI 28.7
--- OUTSIDE RECORDS SUMMARY | 2025-01-26 16:26 | XMS_ITS | Clinical Summary ---
Author Organization [facility] Address [address] [place] [address] Phone Care Team Providers Care Stone Crusher Operator Name Role Phone Unavailable Primary Care [...] Vaccines (1 - 3-dose SCDM series) 05/24/2015 Influenza Vaccines (#1) 2024 COVID-19 Vaccine ( season) 2024 HIB Vaccines Completed 01/13/1990 IPV Vaccines [...]
--- OUTSIDE RECORDS SUMMARY | 2025-01-26 16:26 | XMS_ITS | Encounter Summary ---
Author Organization [facility] Address [address] [place] [address] Phone Care Team Providers Care Visual Specialist Name Role Phone Tejas Turner MD Primary Care Provider Bo haq Encounter Details Date Type Department Care Team (Late st Contact Info) Description 10/30/2016 Conversion Encounter [facility] [place] [address] [place] [address] Social History Tobacco Use Types Packs/Day Years [...] on filedocumented in this encounter Care Teams Visual Specialist Relationship Specialty Start Date End Date Tejas Turner MD PCP - General 10/24/16 05/28/22 documented as of this encounter
== END 2025-01-26 13:27 | disposition home or self-care (01) ==
LOC: HO.PMC 13:09
PROVIDERS: PCP Internal Medicine; Visit Provider Anesthesiology
DX: M47.816 Spondylosis without myelopathy or radiculopathy, lumbar region (principal); G89.4 Chronic pain syndrome
CPT/HCPCS: 99213

== ENCOUNTER → 2025-01-26 13:08 | Outpatient (BNVA) | payer OTHER, SELFPAY | PROVIDERS: PCP Internal Medicine; Visit Provider Anesthesiology | DX: G89.4 Chronic pain syndrome (principal); M47.816 Spondylosis without myelopathy or radiculopathy, lumbar region | CPT/HCPCS: 99212 ==

== ENCOUNTER 2025-02-16 16:42 | Emergency (ER) | payer OTHER, SELFPAY ==
--- NOTE | ~2025-02-16 | CT_ITS ---
CLINICAL HISTORY: R visual changes transient facial droop CTA HEAD, bolus contrast injection. 3D reconstructions and MPRs:: Comparison: None Findings: Right Carotid Siphon: Unremarkable Right Anterior Cerebral Artery: A1 and A2 segments are unremarkable. There is peripheral cortical enhancement. Right Middle Cerebral Artery: M1 and M2 segments are unremarkable. There is peripheral cortical enhancement. Right Posterior Cerebral Artery: There is persistent right posterior cerebral artery circulation, a normal variant. P2 segments are unremarkable. There is peripheral enhancement Left Carotid Siphon: Unremarkable Left Anterior Cerebral Artery: A1 and A2 segments are unremarkable. There is peripheral cortical enhancement. Left Middle Cerebral Artery: M1 and M2 segments are unremarkable. There is peripheral cortical enhancement. Left Posterior Cerebral Artery: There is persistent left posterior cerebral circulation, a normal variant. P2 segments are unremarkable. There is peripheral cortical enhancement. Basilar Artery: The basilar artery is a small artery Venous drainage: Normal Impression: No signs of aneurysm. No signs of arterial venous malformation. CTA Neck , Bolus contrast injection, 3D reconstructions and MPRs: Comparison: None Findings: Soft tissues of the neck are unremarkable Superior aorta and branch vessels are unremarkable Right carotid: No stenosis or dissection Right vertebral: No stenosis. No dissection Left Carotid: No dissection or aneurysm. Left Vertebral: No stenosis. No dissection Impression: No stenosis No aneurysm or dissection This document has been electronically signed by: Yousuf Torres MD on 02/16/2025 21:04:13
[2025-02-16 17:03] VITALS: BP 167/82; PULSE 109; RESP 16; TEMP 36.9; O2SAT 97; BMI 27.0
--- NOTE | 2025-02-16 17:13 | ECG_ITS ---
Test Reason : NEURO SYMPTOMS Blood Pressure : */* mmHG Vent. Rate : 96 BPM Atrial Rate : 96 BPM P-R Int : 112 ms QRS Dur : 100 ms QT Int : 360 ms P-R-T Axes : 50 3 36 degrees QTcB Int : 454 ms Normal sinus rhythm with sinus arrhythmia Normal ECG When compared with ECG of 24-Sep-2022 08:41, No significant change was found Referred By: Kayode Carpenter Electronically Signed By: DIMITRI ZAPATA
--- NOTE | 2025-02-16 17:13 | ED.NEUROSD ---
HPI - Neuro Symptoms/Deficit General Chief Complaint: Neuro Symptoms/Deficit Stated Complaint: Eye Issues Irritation Time Seen by Provider: 02/16/25 17:55 History of Present Illness ED Provider: bhavesh HPI Narrative: Patient reported blurriness of the right eye starting at about 1:00 PM. He felt paresthesias come up, not weakness despite triage note, of the right side of the face. Also reported paresthesias of the right upper arm. Feels a little bit vague blurriness without field deficit on the right side, persisting. Doesn't feel numb anymore. No motor symptoms, no clumsy hand. No ataxia denies vertigo. No prior similar episode. He was able to drive during the episode. Related Data Home Medications ?Medication ?Instructions ?Recorded ?Confirmed dextroamphetamine-amphetamine 20 25 mg PO DAILY 01/29/24 mg tablet (Adderall) guanfacine 2 mg tablet 2 mg PO BEDTIME 01/29/24 escitalopram oxalate 20 mg tablet 20 mg PO DAILY 01/26/25 (Lexapro) Previous Rx's ?Medication ?Instructions ?Recorded ketorolac 10 mg tablet 10 mg PO Q6H PRN pain #20 tabs 04/23/24 methocarbamol 750 mg tablet 1,500 mg (2 x 750 mg) PO Q8H PRN 04/23/24 pain, moderate #20 tabs raltegravir 400 mg tablet 400 mg PO BID #56 tabs 07/28/24 (Isentress) epinephrine 0.3 mg/0.3 mL 0.3 mg (0.3 mL) IM Q10M PRN 11/12/24 injection, auto-injector (EpiPen) anaphylaxis #1 ea aspirin 81 mg capsule 81 mg PO DAILY #30 caps 02/16/25 Allergies Allergy/AdvReac Type Severity Reaction Status Date / Time No Known Allergies (No Known Allergy Verified 02/16/25 17:04 Allergies*) [facility] Past Medical History Medical History Acute appendicitis Surgical History History of incision and drainage (~05/29/22) History of laparoscopic appendectomy (07/27/21) Social History Social History Household Members: Children Housing: Apartment Alcohol intake: current Patient Tobacco Use Status: Never used Tobacco e-Cigarette/Vaping Use: Never Used Second Hand Smoke Exposure: No Physical Exam Exam: Exam: EXAM: Gen: Alert, awake, well appearing, well hydrated. Head: Atraumatic Eyes: Anicteric, Normal conjunctiva. ENT: Moist mucosa, no pallor. Neck: Supple. Respiratory: Breathing comfortably, No distress.Clear to auscultation bilaterally, symmetric chest expansion, No wheeze, rales, ronchi. Cardiovascular: Regular rate and rhythm. No murmurs or rub. Well perfused periphery, warm extremities. No edema. Abdominal: Soft, no objective distension. No palpable masses or obvious organomegaly. No focal tenderness, no guarding, no rebound tenderness or other peritoneal findings. : No flank tenderness. Neuro: Alert. Gross movement of all extremities intact. Sensation intact, light touch throughout face, neck, trunk, and extremities. 5/5 strength upper and lower extremities bilaterally, proximally, and distally. No ataxia. Appeared normal finger-nose test. Normal nice dagmas. Pupils 2-3 mm symmetric and reactive. Face symmetric, midline tongue protrusion. Normal gait assessment. Vital signs: See flowsheet Vital Signs: Vital Signs: Last Vital Signs Temp 98.4 F 02/16/25 22:24 Pulse 86 02/16/25 22:24 Resp 19 02/16/25 22:24 BP 150/97 H 02/16/25 22:24 Pulse Ox 96 02/16/25 22:24 O2 Del Method Room Air 02/16/25 22:24 BMI result Body Mass Index 27.0 Course Course Course Narrative: RME: 34-year-old male presents to ED for resolved right facial weakness/right eye blurry vision. Patient states around the 12:30pm he had right faical weakness/blurry vision while receiving accupuncture. Patient states symptoms resolved. NIH score is 0. Dry skin labs EKG ordered Medications Administered Discontinued Medications Generic Name Dose Route Start Last Admin Trade Name Freq PRN Reason Stop Dose Admin Iohexol 100 ml 02/16/25 20:03 02/16/25 20:03 Iohexol 350 Mg/Ml 100 Ml Infus..Btl IV 02/16/25 20:04 70 ml ONCE ONE Administration Medical Decision Making Medical Decision Making [facility] Narrative: 34 year old otherwise healthy male with no prior neurologic history, with abrupt onset blurred vision and paresthesia as above. On arrival, only reports blurred vision. There's no field deficits of the eye, gross visual acuity is symmetric and normal. He has no motor deficits, and I had stroke scale 0 during my examination. He's young and otherwise healthy, has no hypercoagulability, had no trauma to the neck or head or symptoms to suggest cervical cranial dissection. He and I had a lengthy discussion based on the unilateral sensory changes. A stroke/TIA is considered but felt to be less likely than a typical migraine or other more benign presentation or etiology. I offered the patient admission for telemetry, echo, carotid Doppler for a more comprehensive evaluation, but he declined this after our lengthy risk-benefit discussion. He was reassured and as was I by the negative imaging, lack of a fib or other dysrhythmia, and the reassuring physical examination. Differential Diagnosis Differential Diagnoses: The differential diagnosis associated with the presentation includes CVA, TIA, complex migraine, cervical cranial dissection Lab Data [facility] Lab Attestation statement: I reviewed the patient's lab results. 02/16/25 17:45 02/16/25 17:45 Labs: Lab Results 02/16/25 Range/Units 17:45 WBC 8.8 (4.8-10.8) X10*3/uL RBC 5.75 (4.60-5.80) X10*6/uL Hgb 16.7 (14.0-18.0) g/dl Hct 50.0 (42.0-52.0) % MCV 87.0 (80.0-98.0) fL MCH 29.0 (27.0-33.0) pg MCHC 33.4 (31.0-36.0) g/dl RDW 15.0 (11.0-16.0) % Plt Count 220 (160-400) X10*3/uL MPV 10.5 (9.4-12.4) fL Immature Gran % (Auto) 0.2 (0.0-0.4) % Neut % (Auto) 70.6 (45-73) % Lymph % (Auto) 22.1 (20-40) % [place] % (Auto) 6.2 (2-11) % Eos % (Auto) 0.1 (0-4) % Baso % (Auto) 0.8 (0-2) % Lymph # (Auto) 1.9 (1.2-4.9) X10*3/uL [place] # (Auto) 0.5 (0.1-1.2) X10*3/uL Eos # (Auto) 0.0 (0.0-0.4) X10*3/uL Baso # (Auto) 0.1 (0.0-0.2) X10*3/uL Abs Immat Gran (auto) 0.02 (0.00-0.03) X10*3/uL Absolute Neuts (auto) 6.2 (2.0-8.3) x10*3/uL Absolute Nucleated RBC 0.000 (0.0-0.012) X10*3/uL Nucleated RBC % (auto) 0.0 (0.0-0.2) /100WBC Smear Tech's Comments VERIFIED PT 10.8 L (11.2-13.5) SEC INR 0.9 (0.9-1.1) APTT 24.9 L (26.7-34.1) SEC Sodium 141 (135-145) mmol/L Potassium 4.1 (3.3-5.1) mmol/L Chloride 107 (96-108) mmol/L Carbon Dioxide 22 (22-29) mmol/L Anion Gap 16 (12-20) BUN 16 (9-16) mg/dL Creatinine 0.79 (0.5-1.4) mg/dL Estim Creat Clear Calc 141.8 Estimated GFR > 60 Random Glucose 109 (60-115) mg/dL Calcium 9.4 (8.4-10.2) mg/dL Total Bilirubin 0.6 (0.0-1.0) mg/dL AST 44 H (5-37) U/L ALT 43 H (0-40) U/L Alkaline Phosphatase 108 (39-117) U/L Troponin I High Sens < 2.7 (<3.5-35.0) ng/L Total Protein 7.6 (6.5-8.0) g/dL Albumin 4.8 (3.5-5.0) g/dL Independent Interpretation I performed an independent interpretation of an: EKG (Sinus rhythm rate: 96 QTC: 454 No ischemic changes. Sinus arrhythmias at present. ) NIH Stroke Scale Internal: Initial- Upon Arrival Level of Consciousness: Alert Level of Consciousness Questions: Answers both questions correctly Level of Consciousness Commands: Performs both tasks correctly Best Gaze: Normal Visual: No visual loss Facial Palsy: Normal Motor Arm (Right): No drift Motor Arm (Left): No drift Motor Leg (Right): No drift Motor Leg (Left): No drift Limb Ataxia: Absent Sensory: Normal Best Language: No aphasia Dysarthia: Normal Extinction and Inattention: No abnormality Score: 0 Discharge Plan Discharge Clinical Impression: Paresthesia Patient Disposition: Home, Self-Care Instructions: Paresthesia (ED) Additional Instructions: DISCHARGE DIAGNOSES: Paresthesias or sensory changes of the right side of the face and arm that have resolved. Possibly witnessed transient facial droop on the right side. 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 You had lab work and a comprehensive neurologic exam that were all reassuring as well. However as we discussed given the symptoms you had there was the possibility that the event was transient ischemic attack or many or temporary stroke that could not be detected on imaging or tests. We recommended admission to the hospital for comprehensive neurologic examination, cardiac monitoring, echocardiogram and other stroke risk mitigation. After discussing risks benefits you declined to stay and preferred to follow up outpatient. We strongly recommend you return at anytime for evaluation particularly if you develop any subsequent neurologic symptoms similar to what happened today. DISCHARGE MEDICATIONS: ?I recommend you take a baby aspirin until you follow up as an outpatient and are told otherwise FOLLOW-UP: ?Call your primary or general physician soon as possible to discuss your symptoms, your ED visit and to discuss follow up plans Call your primary doctor and/or Neurology for follow up INSTRUCTIONS ?& RETURN PRECAUTIONS: If any symptoms change first call your primary physician, if it is after-hours your primary doctors office should have a provider controls designer you can speak with. If the symptoms are severe or very concerning to you then call 911 or return to the ED. Daniel Taylor MD Emergency Physician [facility] Prescriptions: New aspirin 81 mg capsule 81 mg PO DAILY Qty: 30 0RF No Action ketorolac 10 mg tablet 10 mg PO Q6H PRN (Reason: pain) Qty: 20 0RF Rx Instructions: maximum total duration of 5 days from all oral, intranasal, or parenteral formulations. The patient received an intramuscular dose of medication here in the emergency department methocarbamol 750 mg tablet 1,500 mg PO Q8H PRN (Reason: pain, moderate) Qty: 20 0RF Isentress 400 mg tablet 400 mg PO BID Qty: 56 0RF epinephrine [EpiPen] 0.3 mg/0.3 mL auto-injector 0.3 mg IM Q10M PRN (Reason: anaphylaxis) Qty: 1 0RF Rx Instructions: for 2 doses guanfacine 2 mg tablet 2 mg PO BEDTIME dextroamphetamine-amphetamine [Adderall] 20 mg tablet 25 mg PO DAILY escitalopram oxalate [Lexapro] 20 mg tablet 20 mg PO DAILY Referrals: [facility] [Provider Group, Neurology] Interventions: ED Discharge Assessment Last Done: 02/16/25 22:24 Discharge Date/Time: 02/16/25 22:34 Print Language: American
[2025-02-16 17:37] VITALS: BP 154/85; PULSE 98; RESP 22; TEMP 37; O2SAT 100
[2025-02-16 17:57] LABS: INTERNATIONAL NORM RATIO 0.9 (0.9-1.1); Imm Gran Abs Auto 0.02 X10*3/uL (0.00-0.03); Imm Gran Pct Auto 0.2 % (0.0-0.4); MANUAL DIFF FLAG SCAN; NRBC Abs Auto 0.000 X10*3/uL (0.0-0.012); NRBC Pct Auto 0.0 /100WBC (0.0-0.2); PLT CLUMP 1; Prothrombin Time 10.8 SEC (11.2-13.5); SCAN SMEAR FLAG 1
[2025-02-16 17:59] LABS: Hematocrit 50.0 % (42.0-52.0); Hemoglobin 16.7 g/dl (14.0-18.0); Lymphocytes Absolute Auto 1.9 X10*3/uL (1.2-4.9); Mean Corpuscular HGB Conc 33.4 g/dl (31.0-36.0); Mean Corpuscular Hemoglobin 29.0 pg (27.0-33.0); Mean Corpuscular Volume 87.0 fL (80.0-98.0); Partial Thromboplastin Time 24.9 SEC (26.7-34.1); Red Blood Count 5.75 X10*6/uL (4.60-5.80)
[2025-02-16 18:16] LABS: Troponin-I High Sensitivity < 2.7 ng/L (<3.5-35.0)
[2025-02-16 18:17] LABS: White Blood Count 8.8 X10*3/uL (4.8-10.8)
[2025-02-16 18:22] LABS: Alanine Aminotransferase 43 U/L (0-40); Albumin Level 4.8 g/dL (3.5-5.0); Alkaline Phosphatase 108 U/L (39-117); Anion Gap 16 (12-20); Aspartate Amino Transferase 44 U/L (5-37); Blood Urea Nitrogen 16 mg/dL (9-16); Calcium 9.4 mg/dL (8.4-10.2); Carbon Dioxide 22 mmol/L (22-29); Chloride 107 mmol/L (96-108); Creatinine Clr Calc Pharmacy 141.8; Estimated Glomerular Filt Rate > 60; Potassium 4.1 mmol/L (3.3-5.1); Sodium 141 mmol/L (135-145); Total Protein 7.6 g/dL (6.5-8.0)
[2025-02-16 18:26] LABS: Platelet Count 220 X10*3/uL (160-400)
--- NOTE | 2025-02-16 18:45 | MHC.EDTECH ---
during changing pt over into hospital gown, red burn on sternum was visualize. pt stated it was d/t spilling soup on himself 3-4 days prior. RN made aware
[2025-02-16] MEDS: iohexoL 350 MG/ML 100 ML INFUS..BTL IV (20:03)
[2025-02-16 20:15] VITALS: BP 150/97; PULSE 86; RESP 19; TEMP 36.9; O2SAT 96
--- OUTSIDE RECORDS SUMMARY | 2025-02-16 22:15 | XMS_ITS | Clinical Summary ---
Author Organization [facility] Address [address] [place] [address] Phone Care Team Providers Care Embedded Systems Engineer Name Role Phone Unavailable Primary Care [...]
--- OUTSIDE RECORDS SUMMARY | 2025-02-16 22:15 | XMS_ITS | Encounter Summary ---
Author Organization [facility] Address [address] [place] [address] Phone Care Team Providers Care Gold Leaf Roller Name Role Phone Tejas Turner MD Primary Care Provider Bo haq Encounter Details Date Type Department Care Team (Late st Contact Info) Description 10/30/2016 Conversion Encounter [facility] [place] [address] [place] [address] Social History Tobacco Use Types Packs/Day Years [...] on filedocumented in this encounter Care Teams Gold Leaf Roller Relationship Specialty Start Date End Date Tejas Turner MD PCP - General 10/24/16 05/28/22 documented as of this encounter
[2025-02-16 22:24] VITALS: BP 150/97; PULSE 86; RESP 19; TEMP 36.9; O2SAT 96
== END 2025-02-16 22:34 | disposition home or self-care (01) ==
PROVIDERS: Physician Assistant; Emergency Provider Emergency Medicine; PCP Internal Medicine
DX: R20.2 Paresthesia of skin (principal); H53.8 Other visual disturbances; R00.0 Tachycardia, unspecified; R29.810 Facial weakness
CPT/HCPCS: 36415; 70496; 70498; 80053; 84484; 85025; 85610; 85730; 93005; 99284; 99285; Q9967

== ENCOUNTER → 2025-02-16 17:13 | Outpatient (BNV) | payer OTHER, SELFPAY | PROVIDERS: Emergency Provider Emergency Medicine; PCP Internal Medicine; Visit Provider Internal Medicine | DX: R00.0 Tachycardia, unspecified (principal) | CPT/HCPCS: 93010 ==

== ENCOUNTER → 2025-02-16 18:45 | Outpatient (BNV) | payer OTHER, SELFPAY | PROVIDERS: Emergency Provider Emergency Medicine; PCP Internal Medicine; Visit Provider Radiology Diagnostic Radiology | DX: H53.8 Other visual disturbances (principal); R29.810 Facial weakness | CPT/HCPCS: 70496; 70498 ==

== ENCOUNTER 2025-03-14 06:53 | Outpatient (REF) | payer OTHER, SELFPAY ==
--- NOTE | ~2025-03-14 | FL_ITS ---
EXAMINATION: FL GUIDANCE ONLY HISTORY: M47.816 - Spondylosis without myelopathy or radiculopathy, lumbar region COMPARISON: None available. TECHNIQUE: Fluoroscopy time: 40 seconds. Cumulative Dose: 8.20 mGy. DAP: 1767.00 mGycm2 Images: 12. FINDINGS: Fluoroscopic spot films of the lumbar spine demonstrate needles and contrast material in the regions of the bilateral L3-4, L4-5, and L5-S1 facet joints. FL/FL guidance in treatment room IMPRESSION: Fluoroscopy during procedure. Please see procedure report for additional information. Electronically signed by: Farrukh Paniagua MD 03/14/2025 02:16 PM [facility]
--- OUTSIDE RECORDS SUMMARY | 2025-03-14 08:35 | XMS_ITS | Encounter Summary ---
Author Organization [facility] Address [address] [place] [address] Phone Care Team Providers Care County Supervisor Name Role Phone Tejas Turner MD Primary Care Provider Bo haq Encounter Details Date Type Department Care Team (Late st Contact Info) Description 10/30/2016 Conversion Encounter [facility] [place] [address] [place] [address] Social History Tobacco Use Types Packs/Day Years [...] on filedocumented in this encounter Care Teams County Supervisor Relationship Specialty Start Date End Date Tejas Turner MD PCP - General 10/24/16 05/28/22 documented as of this encounter
--- OUTSIDE RECORDS SUMMARY | 2025-03-14 08:35 | XMS_ITS | Clinical Summary ---
Author Organization [facility] Address [address] [place] [address] Phone Care Team Providers Care Belt Changer Name Role Phone Unavailable Primary Care Provider [...]
== END 2025-03-14 06:54 | disposition home or self-care (01) ==
LOC: CF 06:53
PROVIDERS: Visit Provider Anesthesiology
DX: M47.816 Spondylosis without myelopathy or radiculopathy, lumbar region (principal)
CPT/HCPCS: 64493; 64494; J2003; J2795; Q9967

== ENCOUNTER 2025-03-14 09:20 | Outpatient (AMB) | payer OTHER, SELFPAY ==
[2025-03-14 09:21] VITALS: BP 140/89; PULSE 85; RESP 16; O2SAT 98; BMI 27.1
--- NOTE | 2025-03-14 09:21 | MHC.OFFVIS ---
Vital Signs 03/14/25 09:21 03/14/25 09:50 Height 6 ft Weight 200 lb BMI 27.1 BP 140/89 H 141/72 H Blood Pressure Location Lt brachial Lt brachial Position Sitting Standing Respiration 16 16 Pulse 85 81 Pulse Source Pulse Oximeter Pulse Oximeter Pulse Oximetry (%) 98 98 Oxygen Delivery Method Room Air Room Air Intake Visit Reasons: BILATERAL DIAGNOSTIC L3-L4 DR L5 MBB Allergies No Known Allergies (No Known Allergies*) Allergy (Verified 02/16/25 17:04) [facility] Medical History Acute appendicitis Surgical History History of incision and drainage (~05/29/22) History of laparoscopic appendectomy (07/27/21) Social History Household Members: Children Housing: Apartment Alcohol intake: current Patient Tobacco Use Status: Never used Tobacco e-Cigarette/Vaping Use: Never Used Second Hand Smoke Exposure: No Physical Exam Vital Signs: Last Vital Signs Pulse 81 03/14/25 09:50 Resp 16 03/14/25 09:50 BP 141/72 H 03/14/25 09:50 Pulse Ox 98 03/14/25 09:50 Oxygen Delivery Method Room Air 03/14/25 09:50 BMI result Body Mass Index 27.1 Assessment & Plan Assessment & Plan (1) Spondylosis of lumbar region without myelopathy or radiculopathy: Code(s): M47.816 - Spondylosis without myelopathy or radiculopathy, lumbar region Category: Medical Plan Diagnostic medial branch block L3,L4 dorsal ramus L5 bilateral.? ? ?Informed consent was explained to the patient. All questions were explained and? answered.? The patient was taken inside the operating room where he was positioned prone on the operating table. Time-out was performed delineating correct site, side, the nature of the procedure, patient's allergy, . All operating room staff was participating in OR time-out procedure. ? ? The lower back was prepped with ChloraPrep and draped with sterile utility towels.? C-arm was brought over the operating field and sq picture of L4-, L5 vertebra and S1 AREA were delineated on the screen.? Point of interest were delineated as confluence of superior articular process of L4 and L5 vertebra bilaterally with corresponding transverse processes as well as confluence of the sacral alae bilaterally with superior articular process of S1.? The projection of the point of interest to the skin were injected with the small amount of local anesthetic lidocaine 2% mixed with ropivacaine 0.5% 1-1 approximately 1 cc.? After that 22 gauge 3.5 inch spinal needle was driven sequentially to the points of interest in tunnel vision fashion. After needles gently contacted the bone at the point of interests the needle was injected with small amount of the contrast.? The injection of the contrast did not demonstrate any intravascular or intrathecal spread of the contrast.? After that injection of the? ropivacaine 0.5%-1cc was performed at each needle location.?After that the needles were removed and Bandaids were applied. Orders: Orders FL guidance in treatment room Today M47.816 - Spondylosis without myelopathy or radiculopathy, lumbar region Coding Level of Care Code Procedure Only Diagnoses Spondylosis of lumbar region without myelopathy or radiculopathy M47.816
[2025-03-14 09:50] VITALS: BP 141/72; PULSE 81; RESP 16; O2SAT 98
== END 2025-03-14 09:52 | disposition home or self-care (01) ==
LOC: HO.PMCPRC 09:20
PROVIDERS: PCP Internal Medicine; Visit Provider Anesthesiology
DX: M47.816 Spondylosis without myelopathy or radiculopathy, lumbar region (principal)
CPT/HCPCS: 64493; 64494